=== PATIENT | male | born 1940 | race Caucasian/White ===

== ENCOUNTER → 2024-10-04 | Outpatient (CLI) | payer MEDICARE, OTHER, SELFPAY ==
[2024-10-06 07:09] LABS: Calprotectin, Stool 44 ug/g (0-120)
[2024-10-08 01:07] LABS: Pancreatic Elastase, Fecal 241 (>200)
== END | disposition home or self-care (01) ==
PROVIDERS: Visit Provider Student in an Organized Health Care Education/Training Program
DX: K58.9 Irritable bowel syndrome, unspecified (principal); R19.7 Diarrhea, unspecified
CPT/HCPCS: 82274; 82653; 83630; 83993

== ENCOUNTER 2024-12-01 08:34 | Day surgery (SDC) | payer MEDICARE, OTHER, SELFPAY ==
--- NOTE | 2024-11-30 13:56 | PAT.ANE_ITS ---
Pre-Assessment Diagnosis/Proposed Procedure Planned Operative Procedure(s): CSCOPE Anesthesia History Anesthesia History - dipper clock and watch hands: Anesthesia History - dipper clock and watch hands Hx Hospitalization No 11/30/24 13:04 Any Problems With Anesthesia No 11/30/24 13:04 Cholinesterase deficiency No 11/30/24 13:04 You/Your Family Experience No 11/30/24 13:04 fever (hyperthermia) with Relationship Recent Exposure to Contagious Disease Does patient have nerve No 11/30/24 13:04 stimulator Patient instructed to have device shut off --Does patient have Pacemaker or ICD? When Was Last Pacemaker Check QUESTION #4 FULL TEXT: You/Your Family Experience fever (hyperthermia) with Anesthesia Last Oral Intake Last Oral intake: Last Oral Intake NPO since Meds taken in AM with sips of water? Meds patient instructed to take am of surgery PONV PONV - dipper clock and watch hands: PONV - dipper clock and watch hands Female No 11/30/24 13:04 HX of Motion Sickness No 11/30/24 13:04 HX of N/V After Surgery No 11/30/24 13:04 Non-Smoker Yes 11/30/24 13:04 Duration of Surgery greater No 11/30/24 13:04 than 60 minutes Number of Risk Factors 1 11/30/24 13:04 PONV Score Low Risk 11/30/24 13:04 Respiratory Assessment Respiratory Assessment - dipper clock and watch hands: Respiratory Tract Infection Hx - dipper clock and watch hands Hx Respiratory Tract Infection No 11/30/24 13:04 STOP Sleep Apnea STOP Sleep Apnea - dipper clock and watch hands: STOP Sleep Apnea - dipper clock and watch hands Hx Hypertension Yes: CONTROLLED BUT HAS PRN 11/30/24 13:04 MEDS FOR SPIKES Hx Sleep Apnea Yes 11/30/24 13:04 CPAP Yes 11/30/24 13:04 BIPAP No 11/30/24 13:04 Do you snore loudly (louder than talking or can be heard Do you often feel tired/ fatigued/ sleepy during daytime? Has anyone observed you stop breathing during sleep? STOP Results Positive 11/30/24 13:04 QUESTION #5 FULL TEXT : Do you snore loudly (louder than talking or can be heard through closed doors)? Tobacco Use History Tobacco Use History - dipper clock and watch hands: Tobacco Use History - dipper clock and watch hands Tobacco Use Smoking Status Never smoker 11/30/24 13:04 Hx Tobacco Use No 11/30/24 13:04 Years Smoking Packs Smoked per Day Smoking Cessation Date was within the last 15 years Hx Smoking Cessation Date Hx Smoking Cessation Counseling Hematologic Medial History Hematologic Hx - dipper clock and watch hands: Hematologic Medical Hx - technical documentation specialist Hx of Blood Transfusion No 11/30/24 13:04 Hx of Transfusion in last 3 No 11/30/24 13:04 Months Date of Last Transfusion (if within last 3 months) Ever experience any problems No 11/30/24 13:04 with transfusion(s)? Specify any problems Hx of Preganancy in last 3 N/A 11/30/24 13:04 Months Nurse Filling Out Transfusion NBUCHER 11/30/24 13:04 & Questions: Date: 11/30/24 11/30/24 13:04 Time: 13:08 11/30/24 13:04 Patient unable to answer at this time (ie. confused, unrespo /Reproduction History /Reproductive History - dipper clock and watch hands: /Reproductive Hx- dipper clock and watch hands Hx Now Gestational Age (in weeks): EDC: Hx Hx Para Hx Section SAB PFSH Medical History (Updated 11/30/24 @ 13:16 by Hilary Lombardi) Wears hearing aid Loss of hearing Wears glasses Wears dentures Insulin dependent diabetes mellitus Arthritis Gout History of renal disease High cholesterol TIA (transient ischemic attack) CPAP (continuous positive airway pressure) dependence Sleep apnea Non-smoker History of edema Shortness of breath on exertion Hypertension History of echocardiogram History of rheumatic fever Cardiology follow-up encounter Cancer Myocardial infarction Palpitations LBBB (left bundle branch block) Kidney disease Hypoglycemia History of TIAs Dizziness CAD in [place] artery Bradycardia Bladder incontinence Blood in stool Bilateral lower extremity edema Aortic stenosis Actinic keratosis Abdominal pain Morbid obesity Colon cancer Neuropathy Chronic GERD MARTIN on CPAP Kidney disease, chronic, stage III (GFR 30-59 ml/min) Recurrent major depression CHF (congestive heart failure) Benign essential HTN Type 2 diabetes with complication Home Medications ?Medication ?Instructions ?Recorded ?Last Taken ?Type allopurinol 100 mg tablet 100 mg PO QDAY 09/20/24 Unknown History aspirin 81 mg tablet,delayed 81 mg PO QDAY 09/20/24 Unknown History release (Adult Aspirin Regimen) bumetanide 2 mg tablet 2 mg PO QDAY 09/20/24 Unknown History carvedilol 25 mg tablet 25 mg PO BID 09/20/24 Unknown History clonidine HCl 0.1 mg tablet 0.1 mg PO QHS PRN hypertensive 09/20/24 Unknown History emergency gabapentin 600 mg tablet 600 mg PO BID 09/20/24 Unknown History hydralazine 100 mg tablet 100 mg PO BID 09/20/24 Unknown History insulin NPH isoph U-100 human 100 See Protocol subcut TID 09/20/24 Unknown History unit/mL subcutaneous suspension (Novolin N NPH U-100 Insulin isophane) isosorbide mononitrate 30 mg 30 mg PO DAILY 09/20/24 Unknown History tablet,extended release 24 hr lisinopril 40 mg tablet 40 mg PO BID 09/20/24 Unknown History pantoprazole 40 mg tablet,delayed 40 mg PO QDAY 09/20/24 Unknown History release potassium chloride 20 mEq 20 meq PO QDAY 09/20/24 Unknown History tablet,extended release sertraline 100 mg tablet 100 mg PO QDAY 09/20/24 Unknown History spironolactone 100 mg tablet 100 mg PO BID 09/20/24 Unknown History Allergy/AdvReac Type Severity Reaction Status Date / Time amlodipine (From Norvasc) Allergy Intermediate Other Verified 11/30/24 12:57 hydrochlorothiazide Allergy Intermediate Other Verified 11/30/24 12:57 olmesartan Allergy Intermediate Other Verified 11/30/24 12:57 penicillin G benzathine Allergy Intermediate Other Verified 11/30/24 12:57 Penicillins (PCN) Allergy Intermediate Other Verified 11/30/24 12:57 pravastatin Allergy Intermediate Other Verified 11/30/24 12:57 valsartan (From [employer]) Allergy Intermediate Other Verified 11/30/24 12:57 Family History Father Heart disease Prostate cancer Sister HLD (hyperlipidemia) Hypertension Surgical History (Updated 11/30/24 @ 13:16 by Hilary Lombardi) History of cardiac catheterization History of heart surgery History of cataract extraction with lens replacement Hx of CABG Hx of tonsillectomy H/O colectomy Hx of ileostomy H/O endarterectomy S/P TAVR (transcatheter aortic valve replacement) Social History Smoking Status: Never smoker alcohol intake: never Audit: Pertinent Findings Pertinent Findings Echo (EF%) pertinent findings: 04/28/2024 normal EF stable aortic valve replacement noted Consult pertinent findings: Cardiology 10/06/2024 Alejo coronary artery disease status post CABG AZUL to LAD saphenous vein graft hypertension MARTIN EF 55 to 60% aortic valve replacement aortic valve replacement was 06/04/2023 has left bundle branch block occasional PVCs PACs Recommendation Anesthesia Recommendation Anesthesia recommendation: OPTIMIZED for anesthesia
--- NOTE | 2024-12-01 | COLBX_PTH ---
PATIENT: VALERIY BEEBE LOC: [facility] U#:[id number] AGE/SX: 84/M ROOM: RE12/01/[address]: Dr. Jarrett Grace DO : 1940 BED: DIS: 12/01/2024 SPEC #: [id number] RECD: 12/01/24 12:47 STATUS: DOMINIK CHARISSA #: [id number] JASWANT: 12/01/24 00:[address]: Jarrett Grace DEPT: SURGICAL PATHOLOGY RECD BY: Tony Fernandez ENTERED: 12/01/24 12:48 SP TYPE: COLON BX DEBORAH DR: Dr. Vesta Lewis DO Tissues: COLON BIOPSY Procedures: Surgery Specimen Level IV HEADER OPERATION: Colonoscopy PRE-OP DIAGNOSIS: History of colon cancer, stage IV, constipation, diarrhea TISSUE SUBMITTED: Anastomosis biopsy MICROSCOPIC DIAGNOSIS Anastomosis, biopsy: Fragments of colonic mucosa, no pathologic diagnosis. 12/02/2024 MICROSCOPIC DESCRIPTION Slides are reviewed. GROSS DESCRIPTION Received in fixative is one container labeled with the patient's name and designated Anastomosis biopsy. The specimen consists of three irregular fragments of light donovan soft tissue that in aggregate measure 1.0 x 0.3 x 0.2 cm. The specimen is totally submitted in one cassette. 12/01/2024 TC:5 CPT:33942
--- NOTE | 2024-12-01 08:41 | PRE.ANES_ITS ---
ASA Classification* ASA Classification ASA Classification: 3 Assessment & Plan Anesthesia* Anesthesia Assessment Anesthesia Assessment: Discussed sedation and/or anesthesia options, risks, benefits, and alternatives with patient/parents/legal guardian/POA. Questions invited. The patient/parents/legal guardian/POA seems to understand and agrees to proceed with anesthesia plan. Reviewed the physical assessment, medical history, allergy history and patient home medications list prior to surgery/procedure/anesthetic and documented any changes. Performed airway and anesthesia risk assessments. Anesthesia Type Anesthesia Type: MAC Anesthesia Focused Assessment* Airway Assessment Mouth opens: >3 cm Mallampati Score: II Focused Labs Anesthesia Preop lab: CBC CHEMISTRY COAG Pre-Assessment Diagnosis/Proposed Procedure Planned Operative Procedure(s): CSCOPE Anesthesia History Anesthesia History - mechanical sound technician: Anesthesia History - mechanical sound technician Hx Hospitalization No 11/30/24 13:04 Any Problems With Anesthesia No 11/30/24 13:04 Cholinesterase deficiency No 11/30/24 13:04 You/Your Family Experience No 11/30/24 13:04 fever (hyperthermia) with Relationship Recent Exposure to Contagious Disease Does patient have nerve No 11/30/24 13:04 stimulator Patient instructed to have device shut off --Does patient have Pacemaker or ICD? When Was Last Pacemaker Check QUESTION #4 FULL TEXT: You/Your Family Experience fever (hyperthermia) with Anesthesia Last Oral Intake Last Oral intake: Last Oral Intake NPO since Meds taken in AM with sips of water? Meds patient instructed to take am of surgery PONV PONV - mechanical sound technician: PONV - mechanical sound technician Female No 11/30/24 13:04 HX of Motion Sickness No 11/30/24 13:04 HX of N/V After Surgery No 11/30/24 13:04 Non-Smoker Yes 11/30/24 13:04 Duration of Surgery greater No 11/30/24 13:04 than 60 minutes Number of Risk Factors 1 11/30/24 13:04 PONV Score Low Risk 11/30/24 13:04 Respiratory Assessment Respiratory Assessment - mechanical sound technician: Respiratory Tract Infection Hx - mechanical sound technician Hx Respiratory Tract Infection No 11/30/24 13:04 STOP Sleep Apnea STOP Sleep Apnea - mechanical sound technician: STOP Sleep Apnea - mechanical sound technician Hx Hypertension Yes: CONTROLLED BUT HAS PRN 11/30/24 13:04 MEDS FOR SPIKES Hx Sleep Apnea Yes 11/30/24 13:04 CPAP Yes 11/30/24 13:04 BIPAP No 11/30/24 13:04 Do you snore loudly (louder than talking or can be heard Do you often feel tired/ fatigued/ sleepy during daytime? Has anyone observed you stop breathing during sleep? STOP Results Positive 11/30/24 13:04 QUESTION #5 FULL TEXT : Do you snore loudly (louder than talking or can be heard through closed doors)? Tobacco Use History Tobacco Use History - mechanical sound technician: Tobacco Use History - mechanical sound technician Tobacco Use Smoking Status Never smoker 11/30/24 13:04 Hx Tobacco Use No 11/30/24 13:04 Years Smoking Packs Smoked per Day Smoking Cessation Date was within the last 15 years Hx Smoking Cessation Date Hx Smoking Cessation Counseling Hematologic Medial History Hematologic Hx - mechanical sound technician: Hematologic Medical Hx - manager unit Hx of Blood Transfusion No 11/30/24 13:04 Hx of Transfusion in last 3 No 11/30/24 13:04 Months Date of Last Transfusion (if within last 3 months) Ever experience any problems No 11/30/24 13:04 with transfusion(s)? Specify any problems Hx of Preganancy in last 3 N/A 11/30/24 13:04 Months Nurse Filling Out Transfusion NBUCHER 11/30/24 13:04 & Questions: Date: 11/30/24 11/30/24 13:04 Time: 13:08 11/30/24 13:04 Patient unable to answer at this time (ie. confused, unrespo /Reproduction History /Reproductive History - mechanical sound technician: /Reproductive Hx- mechanical sound technician Hx Now Gestational Age (in weeks): EDC: Hx Hx Para Hx [facility] Medical History Wears hearing aid Loss of hearing Wears glasses Wears dentures Insulin dependent diabetes mellitus Arthritis Gout History of renal disease High cholesterol TIA (transient ischemic attack) CPAP (continuous positive airway pressure) dependence Sleep apnea Non-smoker History of edema Shortness of breath on exertion Hypertension History of echocardiogram History of rheumatic fever Cardiology follow-up encounter Cancer Myocardial infarction Palpitations LBBB (left bundle branch block) Kidney disease Hypoglycemia History of TIAs Dizziness CAD in [place] artery Bradycardia Bladder incontinence Blood in stool Bilateral lower extremity edema Aortic stenosis Actinic keratosis Abdominal pain Morbid obesity Colon cancer Neuropathy Chronic GERD MARTIN on CPAP Kidney disease, chronic, stage III (GFR 30-59 ml/min) Recurrent major depression CHF (congestive heart failure) Benign essential HTN Type 2 diabetes with complication Home Medications ?Medication ?Instructions ?Recorded ?Last Taken ?Type allopurinol 100 mg tablet 100 mg PO QDAY 09/20/24 Unknown History aspirin 81 mg tablet,delayed 81 mg PO QDAY 09/20/24 Unknown History release (Adult Aspirin Regimen) bumetanide 2 mg tablet 2 mg PO QDAY 09/20/24 Unknown History carvedilol 25 mg tablet 25 mg PO BID 09/20/24 Unknown History clonidine HCl 0.1 mg tablet 0.1 mg PO QHS PRN hypertensive 09/20/24 Unknown History emergency gabapentin 600 mg tablet 600 mg PO BID 09/20/24 Unknown History hydralazine 100 mg tablet 100 mg PO BID 09/20/24 Unknown History insulin NPH isoph U-100 human 100 See Protocol subcut TID 09/20/24 Unknown History unit/mL subcutaneous suspension (Novolin N NPH U-100 Insulin isophane) isosorbide mononitrate 30 mg 30 mg PO DAILY 09/20/24 Unknown History tablet,extended release 24 hr lisinopril 40 mg tablet 40 mg PO BID 09/20/24 Unknown History pantoprazole 40 mg tablet,delayed 40 mg PO QDAY 09/20/24 Unknown History release potassium chloride 20 mEq 20 meq PO QDAY 09/20/24 Unknown History tablet,extended release sertraline 100 mg tablet 100 mg PO QDAY 09/20/24 Unknown History spironolactone 100 mg tablet 100 mg PO BID 09/20/24 Unknown History Allergy/AdvReac Type Severity Reaction Status Date / Time amlodipine (From Norvasc) Allergy Intermediate Other Verified 11/30/24 12:57 hydrochlorothiazide Allergy Intermediate Other Verified 11/30/24 12:57 olmesartan Allergy Intermediate Other Verified 11/30/24 12:57 penicillin G benzathine Allergy Intermediate Other Verified 11/30/24 12:57 Penicillins (PCN) Allergy Intermediate Other Verified 11/30/24 12:57 pravastatin Allergy Intermediate Other Verified 11/30/24 12:57 valsartan (From Diovan) Allergy Intermediate Other Verified 11/30/24 12:57 Family History Father Heart disease Prostate cancer Sister HLD (hyperlipidemia) Hypertension Surgical History History of cardiac catheterization History of heart surgery History of cataract extraction with lens replacement Hx of CABG Hx of tonsillectomy H/O colectomy Hx of ileostomy H/O endarterectomy S/P TAVR (transcatheter aortic valve replacement) Social History Smoking Status: Never smoker alcohol intake: never Review of Systems (Anesthesia) ROS Narrative System reviewed and no additional complaints, except as documented.
[2024-12-01 09:03] VITALS: BP 112/48; PULSE 56; RESP 18; TEMP 36.9; O2SAT 96; BMI 41.6
--- NOTE | 2024-12-01 09:28 | PCM.HP.STD ---
HPI - General General Date of Admission: 12/01/24 Date of Service: 12/01/24 Chief Complaint: History of colon cancer and intermittent diarrhea HPI Narrative VALERIY BEEBE, is a 84 M who presents for surveillance colonoscopy today. Pt has a PMHx of stage IV colon cancer in 2004. He underwent resection and chemotherapy at that time. Since then has had a colonoscopy every 5 years with no further indications of cancer. With his age and comorbidities other GI doctors have not wanted to perform a colonoscopy but he would like one to have the peace of mind. He has alternating constipation and diarrhea which has been going on since his resection. He has diarrhea a few times per week but the constipation is more concerning to him. He tells me he is taking miralax and stool softeners as need for constipation. Last colonoscopy was in 2019. He denies abdominal pain, n/v, heartburn, or blood in his stool. O ed [facility] Medical History Wears hearing aid Loss of hearing Wears glasses Wears dentures Insulin dependent diabetes mellitus Arthritis Gout History of renal disease High cholesterol TIA (transient ischemic attack) CPAP (continuous positive airway pressure) dependence Sleep apnea Non-smoker History of edema Shortness of breath on exertion Hypertension History of echocardiogram History of rheumatic fever Cardiology follow-up encounter Cancer Myocardial infarction Palpitations LBBB (left bundle branch block) Kidney disease Hypoglycemia History of TIAs Dizziness CAD in [place] artery Bradycardia Bladder incontinence Blood in stool Bilateral lower extremity edema Aortic stenosis Actinic keratosis Abdominal pain Morbid obesity Colon cancer Neuropathy Chronic GERD MARTIN on CPAP Kidney disease, chronic, stage III (GFR 30-59 ml/min) Recurrent major depression CHF (congestive heart failure) Benign essential HTN Type 2 diabetes with complication Home Medications ?Medication ?Instructions ?Recorded ?Last Taken ?Type allopurinol 100 mg tablet 100 mg PO QDAY 09/20/24 Unknown History aspirin 81 mg tablet,delayed 81 mg PO QDAY 09/20/24 11/30/24 History release (Adult Aspirin Regimen) bumetanide 2 mg tablet 2 mg PO QDAY 09/20/24 Unknown History carvedilol 25 mg tablet 25 mg PO BID 09/20/24 12/01/24 08:00 History clonidine HCl 0.1 mg tablet 0.1 mg PO QHS PRN hypertensive 09/20/24 Unknown History emergency gabapentin 600 mg tablet 600 mg PO BID 09/20/24 Unknown History hydralazine 100 mg tablet 100 mg PO BID 09/20/24 12/01/24 08:00 History insulin NPH isoph U-100 human 100 See Protocol subcut TID 09/20/24 Unknown History unit/mL subcutaneous suspension (Novolin N NPH U-100 Insulin isophane) isosorbide mononitrate 30 mg 30 mg PO DAILY 09/20/24 Unknown History tablet,extended release 24 hr lisinopril 40 mg tablet 40 mg PO BID 09/20/24 Unknown History pantoprazole 40 mg tablet,delayed 40 mg PO QDAY 09/20/24 Unknown History release potassium chloride 20 mEq 20 meq PO QDAY 09/20/24 Unknown History tablet,extended release sertraline 100 mg tablet 100 mg PO QDAY 09/20/24 Unknown History spironolactone 100 mg tablet 100 mg PO BID 09/20/24 Unknown History Allergy/AdvReac Type Severity Reaction Status Date / Time amlodipine (From [facility]) Allergy Intermediate Other Verified 12/01/24 09:00 hydrochlorothiazide Allergy Intermediate Other Verified 12/01/24 09:00 olmesartan Allergy Intermediate Other Verified 12/01/24 09:00 penicillin G benzathine Allergy Intermediate Other Verified 12/01/24 09:00 Penicillins (PCN) Allergy Intermediate Other Verified 12/01/24 09:00 pravastatin Allergy Intermediate Other Verified 12/01/24 09:00 valsartan (From Diovan) Allergy Intermediate Other Verified 12/01/24 09:00 Family History Father Heart disease Prostate cancer Sister HLD (hyperlipidemia) Hypertension Surgical History History of cardiac catheterization History of heart surgery History of cataract extraction with lens replacement Hx of CABG Hx of tonsillectomy H/O colectomy Hx of ileostomy H/O endarterectomy S/P TAVR (transcatheter aortic valve replacement) Social History Smoking Status: Never smoker alcohol intake: never ROS Constitutional Constitutional: Denies fatigue, fever(s), poor appetite, weight gain or weight loss Gastrointestinal Gastrointestinal: Denies belching, bloating, change in bowel habits, change in stool character, chewing difficulty, coffee ground emesis, constipation, cramping, diarrhea, dyspepsia, dysphagia, early satiety, excessive flatus, fecal incontinence, heartburn, hematemesis, hematochezia, hemorrhoids, loose stools, melena, nausea, odynophagia, rectal bleeding, tenesmus, vomiting or weight changes Vital Signs Vital Signs Vital Signs: 12/01/24 09:03 12/01/24 09:03 Temperature 98.4 F Temperature Source Temporal Pulse Rate 56 L Respiratory Rate 18 Respiratory Pattern Normal Blood Pressure 112/48 L Blood Pressure Mean 69 Blood Pressure Source Monitor Blood Pressure Position Semi-Fowlers Blood Pressure Location Left Arm Pulse Ox 96 Oxygen Delivery Method Room Air Weight Weight: 307 lb 1.663 oz Body Mass Index (BMI) 41.6 Physical Exam Const alert, oriented x3, no apparent distress and healthy appearing General Appearance: cooperative GI normal to inspection, nondistended, normoactive bowel sounds, soft to palpation, non-tender and non-distended Percussion: normal to percussion Rectal Exam: deferred Assessment & Plan Assessment/Plan (1) Hx of colon cancer, stage IV: (2) Constipation: (3) Diarrhea: PLAN: Plan Assessment and Plan Assessment and Plan (1) Diarrhea: Status: Acute (2) Constipation: Status: Acute (3) Hx of colon cancer, stage IV: Status: Acute Plan: This is an 84 yo male pt here today for establishment. He is s/p colon resection in 2003 for stage 4 colon cancer. He does not have a colostomy. He has had no recurrence of cancer since then and has had colonoscopies every 5 years since. With his age and comorbidities other GI doctor have not wanted to perform a colonoscopy. He is worried about colon cancer and would like to have a colonoscopy to give him peace of mind. He will be scheduled for this. I will also order stool tests for EPI, blood, infection or inflammation while we wait for colonoscopy. -Colonoscopy -Stool tests -f/u after procedure Orders: Orders Stool Lactoferrin/WBC Today K58.9 - Irritable bowel syndrome, unspecified, R19.7 - Diarrhea, unspecified Calprotectin, Stool Today R19.7 - Diarrhea, unspecified Stool Occult Blood iFOB Today R19.7 - Diarrhea, unspecified Pancreatic Elastase, Fecal Today R19.7 - Diarrhea, unspecified
[2024-12-01 10:00] VITALS: BP 112/48; BP 117/53; PULSE 57; RESP 16; TEMP 36.4; O2SAT 95
--- NOTE | 2024-12-01 10:02 | OP.COLON_ITS ---
Patient Name: Golden Soliman Procedure Date: 12/01/2024 9:36 AM Date of : 1940 Age: 84 Procedure: Colonoscopy Indications: High risk colon cancer surveillance: Personal history of colon cancer Providers: Jarrett Grace DO Referring MD: Vesta Copeland Do Medicines: Monitored Anesthesia Care Patient Profile: This is an 84 year old male. Refer to note in patient chart for documentation of history and physical. Last Colonoscopy: 5 years ago. Complications: No immediate complications. Procedure: Pre-Anesthesia Assessment: - Prior to the procedure, a History and Physical was performed, and patient medications and allergies were reviewed. The patient is competent. The risks and benefits of the procedure and the sedation options and risks were discussed with the patient. All questions were answered and informed consent was obtained. Patient identification and proposed procedure were verified by the physician in the pre-procedure area. Mental Status Examination: alert and oriented. Airway Examination: normal oropharyngeal airway and neck mobility. Respiratory Examination: clear to auscultation. CV Examination: normal. Prophylactic Antibiotics: The patient does not require prophylactic antibiotics. Prior Anticoagulants: The patient has taken no anticoagulant or antiplatelet agents except for NSAID medication. ASA Grade Assessment: II - A patient with mild systemic disease. After reviewing the risks and benefits, the patient was deemed in satisfactory condition to undergo the procedure. The anesthesia plan was to use monitored anesthesia care (MAC). Immediately prior to administration of medications, the patient was re-assessed for adequacy to receive sedatives. The heart rate, respiratory rate, oxygen saturations, blood pressure, adequacy of pulmonary ventilation, and response to care were monitored throughout the procedure. The physical status of the patient was re-assessed after the procedure. After I obtained informed consent, the scope was passed under direct vision. Throughout the procedure, the patient's blood pressure, pulse, and oxygen saturations were monitored continuously. The colonoscope was introduced through the anus and advanced to the terminal ileum. The colonoscopy was performed without difficulty. The patient tolerated the procedure well. The quality of the bowel preparation was adequate. The ileocecal valve, appendiceal orifice, and rectum were photographed. Scope In: 9:44:37 AM Scope Withdrawal Time 0 hours 6 minutes 23 seconds Scope Out: 9:54:24 AM Total Procedure Duration Time 0 hours 9 minutes 47 seconds Findings: The perianal and digital rectal examinations were normal. There was evidence of a prior functional end-to-end colo-colonic anastomosis in the sigmoid colon. This was patent and was characterized by healthy appearing mucosa. The anastomosis was traversed. Biopsies were taken with a cold forceps for histology. Verification of patient identification for the specimen was done. Estimated blood loss was minimal. The exam was otherwise without abnormality on direct and retroflexion views. Impression: - Patent functional end-to-end colo-colonic anastomosis, characterized by healthy appearing mucosa. Biopsied. - The examination was otherwise normal on direct and retroflexion views. Recommendation: - Discharge patient to home. - Resume previous diet. - Continue present medications. - Await pathology results. - No recommendation at this time regarding repeat colonoscopy due to age. Procedure Code(s): --- Professional --- 96946, Colonoscopy, flexible; with biopsy, single or multiple CPT copyright 2021 [employer]. All rights reserved. The codes documented in this report are preliminary and upon silver wrapper review may be revised to meet current compliance requirements. Jarrett Grace DO 12/01/2024 10:02:20 AM This report has been signed electronically. Number of Addenda: 0 Note Initiated On: 12/01/2024 9:36 AM
--- NOTE | 2024-12-01 10:03 | OP.CCLET_ITS ---
12/01/2024 Vesta Copeland Do Re : Colonoscopy procedure for Golden Soliman Dear Min This procedure was performed on November. My impressions and recommendations are as follows: Impressions : - Patent functional end-to-end colo-colonic anastomosis, characterized by healthy appearing mucosa. Biopsied. - The examination was otherwise normal on direct and retroflexion views. Recommendations : - Discharge patient to home. - Resume previous diet. - Continue present medications. - Await pathology results. - No recommendation at this time regarding repeat colonoscopy due to age. My findings are described in the full procedure note, which is enclosed. If I can be of further assistance, please feel free to contact me at . Sincerely, Jarrett Grace, 12/01/2024 10:02:20 AM This report has been signed electronically.
[2024-12-01 10:05] VITALS: BP 112/48; BP 120/56; PULSE 57; RESP 16; O2SAT 92
--- NOTE | 2024-12-01 10:09 | PCM.POST.ANE ---
Anesthesia: Postop Eval I Current Vital Signs Temperature: 97.5 F Pulse Rate: 57 Blood Pressure: 117/53 Respiratory Rate: 14 Pulse Ox: 94 Oxygen Delivery Method: Room Air Assessment Airway patent: Yes Spontaneous unlabored respirations: Yes Mental status: Asleep nausea: No Vomiting: No Anesthesia Complication: No Fluid Hydration Crystalloid volume administer (ml): 40 Total IV fluid infused: 40 Progress Note Anesthesia document: Postop Eval 1 completed: Yes
[2024-12-01 10:10] VITALS: BP 112/48; BP 117/53; BP 118/59; PULSE 57; RESP 14; RESP 16; TEMP 36.4; O2SAT 92; O2SAT 94
[2024-12-01 10:17] VITALS: BP 112/48; BP 117/46; PULSE 62; RESP 16; TEMP 36.8; O2SAT 97
[2024-12-01 10:17] LABS: Bedside Glucose 103 mg/dL (74-106)
[2024-12-01 11:03] VITALS: BP 112/48
--- NOTE | 2024-12-01 11:43 | PCM.POSTANE2 ---
Anesthesia Postop Eval I Sum Postop Eval Completion status Anesthesia document: Postop Eval 1 completed: Yes Anesthesia Postop Eval I Summary Anesthesia Postop Eval I Summary: Anesthesia Postop Eval I: Assessment Summary Airway patent Yes 12/01/24 10:10 [email or web address] Spontaneous unlabored Yes 12/01/24 10:10 [email or web address] respirations Mental status Asleep 12/01/24 10:10 [email or web address] nausea No 12/01/24 10:10 [email or web address] Vomiting No 12/01/24 10:10 [email or web address] Anesthesia Postop Eval I: Fluid Summary Crystalloid volume administer 40 12/01/24 10:10 [email or web address] (ml) Colloids volume administered ( ml) Blood Product volume administered (ml) Total IV fluid infused 40 12/01/24 10:10 [email or web address] Anesthesia Postop Eval I: Summary Notes Anesthesia Complication No 12/01/24 10:10 [email or web address] Anesthesia Complication Comment: Post-operative progress note Anesthesia: Postop Eval II Evaluation Mental status: Awake Pain Level: 0 nausea: No Vomiting: No
== END 2024-12-01 11:05 | disposition home or self-care (01) ==
LOC: EN 08:36 → AC 08:37
PROVIDERS: PCP Family Medicine; Referring Provider Family Medicine; Visit Provider Internal Medicine Gastroenterology
PROC: 0DJD8ZZ Inspection of Lower Intestinal Tract, Via Natural or Artificial Opening Endoscopic (ICD-10-PCS; CPT 45378; principal; 2024-12-01 09:25)
DX: Z12.11 Encounter for screening for malignant neoplasm of colon (principal); I13.0 Hypertensive heart and chronic kidney disease with heart failure and stage 1 through stage 4 chronic kidney disease, or unspecified chronic kidney disease; I50.9 Heart failure, unspecified; E66.01 Morbid (severe) obesity due to excess calories; Z68.41 Body mass index [BMI] 40.0-44.9, adult; E11.22 Type 2 diabetes mellitus with diabetic chronic kidney disease; Z79.4 Long term (current) use of insulin; E11.40 Type 2 diabetes mellitus with diabetic neuropathy, unspecified; N18.30 Chronic kidney disease, stage 3 unspecified; K58.9 Irritable bowel syndrome, unspecified; R19.7 Diarrhea, unspecified; Z85.038 Personal history of other malignant neoplasm of large intestine; M10.9 Gout, unspecified; I25.2 Old myocardial infarction; I35.0 Nonrheumatic aortic (valve) stenosis; I25.10 Atherosclerotic heart disease of native coronary artery without angina pectoris; K21.9 Gastro-esophageal reflux disease without esophagitis; F33.9 Major depressive disorder, recurrent, unspecified; E78.00 Pure hypercholesterolemia, unspecified; G47.33 Obstructive sleep apnea (adult) (pediatric); Z88.0 Allergy status to penicillin; Z95.1 Presence of aortocoronary bypass graft; Z95.2 Presence of prosthetic heart valve; Z92.21 Personal history of antineoplastic chemotherapy; Z90.49 Acquired absence of other specified parts of digestive tract; Z79.82 Long term (current) use of aspirin; Z86.73 Personal history of transient ischemic attack (TIA), and cerebral infarction without residual deficits; Z79.899 Other long term (current) drug therapy
CPT/HCPCS: 45380; 82962; 88305; A4216; J2405

== ENCOUNTER 2024-12-13 18:59 | Inpatient (IN) | payer MEDICARE, OTHER, SELFPAY ==
[2024-12-13 19:22] VITALS: BP 181/66; PULSE 59; RESP 17; TEMP 36.8; O2SAT 94; BMI 41.1
[2024-12-13 21:39] VITALS: BP 192/69; PULSE 62
[2024-12-13] MEDS: Gabapentin 600 MG Tablet PO (21:48)
[2024-12-13] MEDS: Heparin Injection (Vial) 5,000 UNIT/ML VIAL 5000 UNIT SC (21:48)
[2024-12-13] MEDS: Insulin Glargine-YFGN 100 UNIT/ML Pen 15 UNIT SC (21:48)
[2024-12-13 21:49] VITALS: BP 192/69; PULSE 62
[2024-12-13] MEDS: hydrALAZINE 50 MG Tablet 100 MG PO (21:49)
[2024-12-13 22:36] LABS: Bedside Glucose 221 mg/dL (74-106)
[2024-12-13 23:00] VITALS: O2SAT 98
--- NOTE | 2024-12-13 23:11 | CPS ---
[2300] 2L bleed-in for pt.'s home NIV unit
[2024-12-13 23:40] VITALS: BP 149/60; PULSE 62
[2024-12-14] VITALS (7 sets, daily range): BP systolic 143–188; BP diastolic 45–71; PULSE 58–87; RESP 16–17; TEMP 36.3–37.2; O2SAT 92–95
[2024-12-14 05:27] LABS: Hemoglobin 10.2 g/dL (13.0-16.5); Mean Corp Hgb Conc 35.2 g/dL (32-36); Mean Corpuscular Hgb 30.2 pg (27.0-32.0); Mean Corpuscular Volume 85.8 fL (80-94); Mean Platelet Vol. 10.8 fl (6.2-12.0); POSITIVE COUNT YES; POSITIVE MORPHOLOGY YES; Platelet Count 213 K/mm3 (150-450); RBC Distribution Width CV 13.2 % (11.6-14.6); Red Blood Count 3.38 M/mm3 (4.6-6.2); White Blood Count 8.2 K/mm3 (4.4-11.0)
[2024-12-14 05:40] LABS: Differential Indicated MANUAL DIFF
[2024-12-14 06:11] LABS: ALB/GLOB Ratio 0.4 RATIO (0.9-2.4); AST(SGOT) 24 U/L (15-37); Alanine Aminotransfer ALT/SGPT 30 U/L (16-61); Albumin, Serum 1.6 g/dL (3.2-5.0); Alkaline Phosphatase 49 U/L (45-117); Anion Gap 7 (5-15); BUN 50 mg/dL (7-18); BUN/Creat Ratio 31.1 RATIO (10-20); Calcium,Total 8.3 mg/dL (8.5-10.1); Chloride 107 mmol/L (98-107); Creatinine, Serum 1.61 mg/dL (0.70-1.30); EST Glomerular Filtration Rate 43 mL/min (>60); Est Glom Filt Rate - Afr Amer 53 mL/min (>60); Estimated Creatinine Clearance 45.98 ml/min; Globulin 3.8 g/dL (2.2-4.2); Glucose 202 mg/dL (74-106); Magnesium 2.2 mg/dL (1.6-2.6); Phosphorus 2.4 mg/dL (2.5-4.9); Potassium 2.8 mmol/L (3.5-5.1); Protein, Total 5.4 g/dL (6.4-8.2); Sodium Level 141 mmol/L (136-145)
[2024-12-14] MEDS: hydrALAZINE 50 MG Tablet 100 MG PO ×3 (06:59→20:32)
[2024-12-14 07:19] LABS: Bedside Glucose 180 mg/dL (74-106)
[2024-12-14 09:43] LABS: Eosinophil 5 % (0-5); Lymphocyte 22 % (19-41); Metamyelocyte 1 % (0-1); Monocyte 9 % (0-10); Neutrophil-Band 1 % (0-5); Neutrophil-Segmented 62 % (47-70); Total Cells Counted 100 (MANUAL DIFF)
[2024-12-14 09:48] LABS: Platelet Estimate ADEQUATE (ADEQ); Red Cell Morphology NORM C+C NORMAL (NORM C&C)
[2024-12-14 09:50] LABS: Absolute Neutrophil Count 5.1 X10^3/uL (2.0-7.7)
[2024-12-14 09:53] LABS: Absolute Lymphocyte Count 1.79 X10^3/uL (0.83-4.51)
[2024-12-14] MEDS: Insulin Lispro 100 UNIT/ML INSULN.PEN SC ×3 (09:56→17:42)
[2024-12-14] MEDS: Insulin Lispro 100 UNIT/ML INSULN.PEN 8 UNIT SC ×3 (09:56→17:42)
[2024-12-14] MEDS: Isosorbide Mononitrate 30 MG Tablet PO (09:57)
[2024-12-14] MEDS: Carvedilol 12.5 MG Tablet PO ×2 (09:57→17:42)
[2024-12-14] MEDS: Allopurinol 100 MG Tablet PO (09:57)
[2024-12-14] MEDS: Potassium Chloride Oral Tablet 20 MEQ PO ×2 (09:57→20:32)
[2024-12-14] MEDS: Sertraline 100 MG Tablet PO (09:57)
[2024-12-14] MEDS: Aspirin E.C. 81 MG Tablet PO (09:57)
[2024-12-14] MEDS: Gabapentin 600 MG Tablet PO ×2 (09:59→20:35)
--- NOTE | 2024-12-14 10:48 | HP.PCM_ITS ---
[facility] - General General Date of Admission: 12/13/24 Chief Complaint: Generalized weakness HPI Narrative VALERIY BEEBE, is a 84-year-old M with a past medical history of diabetes mellitus type 2/insulin-dependent complicated by neuropathy, GERD, CHF, hypertension, chronic renal failure stage III, obstructive sleep apnea on CPAP, TIA's in the past, CAD with history of CABG, aortic stenosis (status post TAVR), history of colon cancer, left bundle branch block, peripheral vascular disease, hyperuricemia on allopurinol, depression and morbid obesity who presented to the ED at [facility] with c/o nausea/vomiting/diarrhea/confusion/weakness for few days. Significant lab in the emergency department was a creatinine of 6 (baseline is 1.5-1.7). A CT scan of the abdomen and pelvis without contrast was unremarkable with the exception of a hypodense region of the posterior right hepatic lobe which could be artifact. A follow-up ultrasound was recommended. CT of the head showed no acute intracranial abnormality. Ultrasound of the kidneys showed no obstruction or acute findings in the kidneys. There was mild renal cortical thinning and borderline echogenicity suggesting medical renal disease. There were tiny nonobstructing calculi or vascular calcifications in the left kidney. Chest x-ray showed possible pulmonary edema with trace bilateral pleural effusions. Serum bicarb was 19 and the venous pH was 7.19. He was transferred to [facility] for nephrology consultation. He was emergently dialyzed on 12/09/2024 and was dialyzed again on 12/10/2024. He was started on a continuous infusion of bicarbonate. He only had to be dialyzed twice. Bumex, potassium, Aldactone and Lisinopril were held. With hydration and dialysis the acute renal failure was much improved. Creatinine prior to discharge from [facility] was 1.61 which is within his baseline. Nephrology felt he may have a component of IN because of hypereosinophilia. and he was placed on Solumedrol. Cognition improved with resolution of uremia but, was not back to his baseline. he was seen by therapy and palliative care and acute rehab was recommended at [facility]. He was transferred to the acute inpt rehab unit at [facility] on 12/13/24 for 3 hours of therapy daily to restore function/independence at or near his level prior to the recent decline. Afebrile VSS -blood pressure has ranged from 149/60 to 192/69 since admission to rehab. Heart rate has ranged from 59-62. Maintaining appropriate oxygen saturation on RA-94 to 95% on room air while awake. Wears CPAP at night with a 2 L O2 bleed in. Weight is 294 pounds. BMI is 41.1. Discussed with nursing - Nursing reports that he has hematuria with clots. apparently the Fournier was only removed yesterday.......we were told the PVR at the previous institution was 9. No postvoid residuals have been done at [facility] yet. Nursing will obtain today we will also obtain the urine for a UA. Reviewed the THERAPY notes Medication list reviewed. Antihypertensives include carvedilol 12.5 mg twice daily and hydralazine 100 mg 3 times daily. He is taking 15 units of glargine nightly and is on 8 units of lispro 3 times daily with meals. He is also on a sliding scale with meals. All labs from this morning were personally reviewed. White blood cell count is normal at 8.2. Hemoglobin is 10.2 with normochromic normocytic indices and the platelets are within normal limits. Sodium is 141 and the potassium is quite low at 2.8. Serum bicarb is 27. The BUN is 50 with a creatinine of 1.61 which is stable from recent lab from the previous hospital. The BUN is 50. Phosphorus is low at 2.4. Magnesium is normal at 2.2. LFTs are unremarkable. Albumin is very low at 1.6. Blood sugar record was reviewed. The blood sugar at at bedtime was 221 and the fasting today was 180. Apparently he was taking NPH on a sliding scale at home but was transition to Lantus and lispro with meals at the previous hospital. [facility] Medical History (Updated 12/16/24 @ 19:[address] Kierra Jacobson DO) Chronic renal failure, stage 3 (moderate) Presbycusis Diabetic neuropathy, type II diabetes mellitus Diabetes mellitus, type 2 Normochromic normocytic anemia Wears hearing aid Wears glasses Wears dentures Arthritis Gout High cholesterol Non-smoker Shortness of breath on exertion Hypertension History of echocardiogram History of rheumatic fever Cardiology follow-up encounter Cancer Myocardial infarction LBBB (left bundle branch block) History of TIAs Dizziness CAD in [place] artery Bradycardia Bladder incontinence Blood in stool Aortic stenosis Actinic keratosis Morbid obesity Neuropathy Chronic GERD MARTIN on CPAP Kidney disease, chronic, stage III (GFR 30-59 ml/min) Recurrent major depression CHF (congestive heart failure) Type 2 diabetes with complication Home Medications ?Medication ?Instructions ?Recorded ?Last Taken ?Type allopurinol 100 mg tablet 100 mg PO QDAY gout 09/20/24 Unknown History aspirin 81 mg tablet,delayed 81 mg PO DAILY heart heal th 09/20/24 12/14/24 History release (Adult Aspirin Regimen) carvedilol 25 mg tablet 12.5 mg PO BID HTN 09/20/24 12/01/24 08:00 History gabapentin 600 mg tablet 600 mg PO BID pain 09/20/24 Unknown History hydralazine 100 mg tablet 100 mg PO TID HTN 09/20/24 0 12/01/24 08:00 History insulin NPH isoph U-100 human 100 See Protocol subcut TID dm 09/20/24 Unknown History unit/mL subcutaneous suspension (Novolin N NPH U-100 Insulin isophane) Held on 12/14/24. Instructions: MD Ordered isosorbide mononitrate 30 mg 30 mg PO DAILY BP 4 Unknown History tablet,extended release 24 hr pantoprazole 40 mg tablet,delayed 40 mg PO QDAY REFLUX 09/20/24 Unknown History release Held on 12/14/24. Instructions: MD Ordered potassium chloride 20 mEq 20 meq PO DAILY SUPPLEMENT 1 11/20/23 Unknown History tablet,extended release sertraline 100 mg tablet 100 mg PO DAILY DEPRESSION 1 11/20/23 Unknown History Allergy/AdvReac Type Severity Reaction Status Date / Time amlodipine (From Norvasc) Allergy Intermediate Other Verified 12/01/24 09:00 hydrochlorothiazide Allergy Intermediate Other Verified 12/01/24 09:00 olmesartan Allergy Intermediate Other Verified 12/01/24 09:00 penicillin G benzathine Allergy Intermediate Other Verified 12/01/24 09:00 Penicillins (PCN) Allergy Intermediate Other Verified 12/01/24 09:00 pravastatin Allergy Intermediate Other Verified 12/01/24 09:00 valsartan (From Diovan) Allergy Intermediate Other Verified 12/01/24 09:00 Family History (Updated 12/15/24 @ 17:[address] Kierra Jacobson DO) Father Heart disease Prostate cancer CAD (coronary artery disease) Sister HLD (hyperlipidemia) Hypertension Surgical History History of cardiac catheterization History of heart surgery History of cataract extraction with lens replacement Hx of CABG Hx of tonsillectomy H/O colectomy Hx of ileostomy H/O endarterectomy S/P TAVR (transcatheter aortic valve replacement) Social History (Updated 12/15/24 @ 17:[address] Kierra Jacobson DO) household members: spouse housing: other details: Lives in a [id number] suite at his daughter Dominique's home. Smoking Status: Never smoker alcohol intake: never substance use type: does not use ROS Review of Systems ROS Unobtainable: Denies due to encephalopathy, due to endotracheal tube, due to mental condition or due to mental status Constitutional Constitutional: Reports fatigue and weakness; Denies anorexia, change in weight, chills, fever(s) or night sweats Eyes Eyes: Denies blurry vision, change in vision, eye pain or loss of vision ENT HEENT: Denies abnormal hearing, dysphagia, headache(s), hearing loss, nasal congestion or sore throat Cardiovascular Cardiovascular: Reports easily tiring during activity; Denies chest pain, dyspnea on exertion, edema, lightheadedness, orthopnea, palpitations, paroxysmal nocturnal dyspnea or syncope Respiratory/Chest Respiratory/Chest: Reports cough and dyspnea on exertion; Denies dyspnea, shortness of breath at rest, shortness of breath with exertion or wheezing Gastrointestinal Gastrointestinal: Denies abdominal pain, constipation, diarrhea, dyspepsia, hematemesis, hematochezia, nausea or vomiting Genitourinary Genitourinary: Denies dysuria, hematuria, nocturia, urinary frequency, urinary hesitancy, urinary incontinence or urinary urgency Musculoskeletal Musculoskeletal: Denies back pain, joint pain, joint swelling or neck pain Integumentary Integumentary: Denies jaundice Neurologic Neurologic: Denies confusion, disequilibrium, dizziness, focal weakness, headache(s), paresthesias, seizures or tremor(s) Psychiatric Psychiatric: Denies anxiety, depression, homicidal ideation or suicidal ideation Endocrine Endocrinology: Denies change in body appearance, polydipsia or polyuria Hematologic/Lymphatic Hematologic/Lymphatic: Denies easy bleeding, easy bruising or lymphadenopathy Allergic/Immunologic Allergic/Immunologic: Denies rhinitis, eczemia or asthma Vital Signs Vital Signs Vital Signs: 12/13/24 19:22 12/13/24 21:39 12/13/24 21:49 Temperature 98.2 F Temperature Source Temporal Pulse Rate 59 L 62 62 Respiratory Rate 17 Respiratory Effort Respiratory Depth Respiratory Pattern Blood Pressure 181/66 H 192/69 H 192/69 H Blood Pressure Mean 104 110 Blood Pressure Source Monitor Monitor Blood Pressure Position Semi-Fowlers Semi-Fowlers Blood Pressure Location Right Arm Right Arm Pulse Ox 94 Oxygen Delivery Method Room Air Oxygen Flow Rate (L/min) 12/13/24 22:00 12/13/24 23:00 12/13/24 23:40 Temperature Temperature Source Pulse Rate 62 Respiratory Rate Respiratory Effort Normal Non-Labored Respiratory Depth Normal Respiratory Pattern Normal Blood Pressure 149/60 H Blood Pressure Mean 89 Blood Pressure Source Monitor Blood Pressure Position Semi-Fowlers Blood Pressure Location Left Forearm Pulse Ox 98 Oxygen Delivery Method Room Air CPAP Oxygen Flow Rate (L/min) 2 12/14/24 06:49 12/14/24 06:59 12/14/24 10:00 Temperature 97.3 F L Temperature Source Oral Pulse Rate 62 62 Respiratory Rate 16 Respiratory Effort Normal Non-Labored Respiratory Depth Normal Respiratory Pattern Normal Blood Pressure 188/71 H 188/71 H Blood Pressure Mean 110 Blood Pressure Source Monitor Blood Pressure Position Semi-Fowlers Blood Pressure Location Left Forearm Pulse Ox 95 Oxygen Delivery Method Room Air Room Air Oxygen Flow Rate (L/min) Weight Weight: 294 lb 15.656 oz Body Mass Index (BMI) 41.1 Physical Exam Const alert and no apparent distress Constitutional Narrative: Pleasant and appropriate. General Appearance: cooperative, well kempt and well developed HEENT HEENT Narrative: Mucous membranes are dry. No evidence of thrush. Eyes PERRL, EOMs intact bilaterally, conjunctivae normal and no scleral icterus Eyes Narrative: No discharge from the eyes. General Eye: normal appearance of both eyes Neck supple Chest Chest: symmetrical chest wall rise Resp normal respiratory effort Resp Narrative: Breath sounds are mildly diminished throughout, more likely than not secondary to body habitus. Inspiratory wheeze....mild, I suspect it is coming from the upper airwar.....I hear it best over the neck. Not tachypneic. Respiration is not labored. Effort and Inspection: able to speak in complete sentences Cardio regular rate, regular rhythm, no rub and no gallops Cardio Narrative: He has a 2/6 systolic ejection murmur heard best at the second right intercostal space with radiation to the lower left sternal border and the apex. No ectopy appreciated. GI normal to inspection, nondistended, normoactive bowel sounds and soft to palpation GI Narrative: Obese. No guarding with palpation. no CVA tenderness Narrative: Having hematuria. He had a Fournier catheter at the previous institution. Extremity no calf tenderness Extremity Narrative: JULIETH hose are in place. No significant pitting edema of the lower extremities. Skin no jaundice Rashes: no rashes Neuro oriented x3, CN's II-XII intact bilaterally and moves all extremities Psych cooperative, denies hallucinations, denies homicidal ideation and denies suicidal ideation Appearance: grossly normal, appropriate and well kempt Attitude: calm and engaged Results Lab / Micro Data 12/14/24 04:25 12/16/24 07:00 Labs: Laboratory Results - last 24 hr 12/13/24 21:39: POC Glucose 221 H 12/14/24 04:25: WBC 8.2, RBC 3.38 L, Hgb 10.2 L, Hct 29.0 L, MCV 85.8, MCH 30.2, MCHC 35.2, RDW Std Deviation 41.0, RDW Coeff of Jose 13.2, Plt Count 213, MPV 10.8, Neut % (Auto) Not Reportable, Absolute Neuts (auto) 5.1, Absolute Lymphs (auto) 1.79, Total Counted 100, Neutrophils % (Manual) 62, Band Neutrophils % 1, Lymphocytes % (Manual) 22, Monocytes % (Manual) 9, Eosinophils % (Manual) 5, Metamyelocytes % 1, Diff Path Review March, Platelet Estimate ADEQUATE, RBC Morphology NORM C+C, Sodium 141, Potassium 2.8 L, Chloride 107, Carbon Dioxide 27.0, Anion Gap 7, BUN 50 H, Creatinine 1.61 H, Estim Creat Clear Calc 45.98, E st GFR (MDRD) Af Amer 53 L, Est GFR (MDRD) Non-Af 43 L, BUN/Creatinine Ratio 31.1 H, Glucose 202 H, Calcium 8.3 L, Phosphorus 2.4 L, Magnesium 2.2, Total Bilirubin 0.30, AST 24, ALT 30, Alkaline Phosphatase 49, Total Protein 5.4 L, A lbumin 1.6 L, Globulin 3.8, Albumin/Globulin Ratio 0.4 L 12/14/24 06:56: POC Glucose 180 H Assessment & Plan Assessment/Plan (1) Physical debility: (2) Acute renal failure superimposed on stage 3 chronic kidney disease: QUALIFIERS: Acute renal failure type: unspecified Chronic kidney disease stage 3 subtype: unspecified whether 3a or 3b Qualified Code(s): N17.9 - Acute kidney failure, unspecified; N18.30 - Chronic kidney disease, stage 3 unspecified (3) Acute uremia: PLAN: with mental status changes (4) Metabolic acidosis: (5) Hypokalemia: (6) Normochromic normocytic anemia: (7) Hypophosphatemia: (8) Hypoalbuminemia: (9) Generalized weakness: (10) Recurrent major depression: QUALIFIERS: Active/Remission status: remission status unspecified Qualified Code(s): F33.9 - Major depressive disorder, recurrent, unspecified (11) Hypertension: QUALIFIERS: Hypertension type: primary hypertension Qualified Code(s): I10 - Essential (primary) hypertension (12) Sleep apnea: QUALIFIERS: Sleep apnea type: obstructive Qualified Code(s): G 47.33 - Obstructive sleep apnea (adult) (pediatric) (13) High cholesterol: (14) Diabetes mellitus, type 2: QUALIFIERS: Diabetes mellitus half-way insulin use: with half-way use Diabetes mellitus complication status: with kidney complications D iabetes mellitus complication detail: with chronic kidney disease Chronic kidney disease stage: stage 3 (moderate) Chronic kidney disease stage 3 subtype: unspecified whether 3a or 3b Qualified Code(s): E11.22 - Type 2 diabetes mellitus with diabetic chronic kidney disease; N18.30 - Chronic kidney disease, stage 3 unspecified; Z79.4 - group home (current) use of insulin (15) Hx of colon cancer, stage IV: (16) Chronic renal failure, stage 3 (moderate): QUALIFIERS: Chronic kidney disease stage 3 subtype: unspecified whether 3a or 3b Qualified Code(s): N18.30 - Chronic kidney disease, stage 3 unspecified PLAN: Plan PLAN PT for gait stability OT for ADL's Analgesics as needed Bowel protocol Fall precautions Assess for Anxiety/Depression GI prophylaxis -he was not transferred on any GI prophylaxis. He denies nausea, vomiting, epigastric pain, heartburn. He is eating 75 to 100% of his meals so far. DVT prophylaxis with SCD's for now and restart Heparin when hematuria resolves. Follow up with PCP and nephrology following DC from [facility] AM lab including CMP, CBC, Mag and Phos Hold Heparin due to hematuria. Order SCD's. Recheck potassium at 5 PM today Check a hemoglobin A1c, uric acid PT/INR and PTT today Add Cardura 2 mg at HS for blood pressure control Check orthostatics Postvoid residuals ordered Charges/Coding Visit Charges Inpatient E&M: 02295 Init Hosp L2
[2024-12-14 12:12] LABS: Bedside Glucose 194 mg/dL (74-106)
[2024-12-14] MEDS: Potassium Chloride Oral Tablet 20 MEQ 40 MEQ PO (12:52)
[2024-12-14 13:46] LABS: Hemoglobin A1c 7.5 % (3.8-5.6)
[2024-12-14 15:24] LABS: Uric Acid 6.4 mg/dL (3.5-7.2)
[2024-12-14 17:00] LABS: Bedside Glucose 170 mg/dL (74-106)
[2024-12-14 17:50] LABS: Mucous, Urine 0 SEEN /hpf (<or=2+); Squamous Epithelial Cells - UA 0 SEEN /hpf (0-5)
[2024-12-14 18:01] LABS: Color, Urine Yellow (Yellow); Glucose, Dipstick Normal (Normal); Ketone-Dipstick Negative (Negative); Leukocyte Esterase-Dipstick 100 /ul (Negative); Nitrite-Dipstick Negative (Negative); Occult Blood-Urine 250 /ul (Negative); Protein-Dipstick 30 mg/dl (Negative); Urine Bilirubin Dipstick Negative (Negative); Urine Clarity Clear (Clear); Urine Urobilinogen Normal (Normal)
[2024-12-14 18:03] LABS: International Normalized Ratio 1.1; Potassium 3.5 mmol/L (3.5-5.1); Prothrombin Time (Protime)PT. 13.9 SECONDS (11.7-14.9)
[2024-12-14 18:04] LABS: Partial Thromboplast Time 24.1 Seconds (24.1-36.2)
[2024-12-14 18:14] LABS: Bacteria 2+ /hpf (None Seen); Red Blood Cells-Urine 5-10 SEEN /hpf (0-5); White Blood Cells 0-5 SEEN /hpf (0-5)
[2024-12-14] MEDS: Doxazosin 1 MG Tablet 2 MG PO (20:33)
[2024-12-14 22:06] LABS: Bedside Glucose 204 mg/dL (74-106)
[2024-12-14] MEDS: Insulin Glargine-YFGN 100 UNIT/ML Pen 15 UNIT SC (22:27)
[2024-12-15] VITALS (7 sets, daily range): BP systolic 112–164; BP diastolic 46–71; PULSE 53–63; RESP 16–18; TEMP 36.2–36.8; O2SAT 94; BMI 41.8
--- NOTE | 2024-12-15 00:44 | NURSING ---
no hematuria or clots noted in urine tonight.
[2024-12-15] MEDS: hydrALAZINE 50 MG Tablet 100 MG PO ×3 (06:25→22:10)
[2024-12-15 06:37] LABS: Bedside Glucose 171 mg/dL (74-106)
[2024-12-15] MEDS: Aspirin E.C. 81 MG Tablet PO (08:29)
[2024-12-15] MEDS: Potassium Chloride Oral Tablet 20 MEQ PO (08:29)
[2024-12-15] MEDS: Gabapentin 600 MG Tablet PO ×2 (08:29→22:11)
[2024-12-15] MEDS: Carvedilol 12.5 MG Tablet PO ×2 (08:29→17:26)
[2024-12-15] MEDS: Sertraline 100 MG Tablet PO (08:29)
[2024-12-15] MEDS: Isosorbide Mononitrate 30 MG Tablet PO (08:30)
[2024-12-15] MEDS: Insulin Lispro 100 UNIT/ML INSULN.PEN SC ×2 (08:30→17:26)
[2024-12-15] MEDS: Senna/Docusate Sodium 1 Tablet 2 TABLET PO ×2 (08:30→22:10)
[2024-12-15] MEDS: Allopurinol 100 MG Tablet PO (08:30)
[2024-12-15] MEDS: Insulin Lispro 100 UNIT/ML INSULN.PEN 8 UNIT SC ×3 (08:30→17:26)
[2024-12-15 12:39] LABS: Bedside Glucose 127 mg/dL (74-106)
[2024-12-15 14:10] LABS: Pathologist Review Reviewed
--- NOTE | 2024-12-15 16:42 | REHABEVAL_ITS ---
Admission Information Primary Diagnosis:: Debility due to generalized weakness Status Changes from Prescreening?: No changes Identified Actual Problem List:: Cognitve Impr/Memory Loss, Bladder Incontinence, Mobility Impaired, Self Care Deficit, Ineffective Communication, Know.Dfct/Disease Process, Know.Dfct of Medicaitons, BP, Hypertension and Alteration-Leisure Activ. Potential Problem List:: DVT, Bleeding, Infection, UTI, Aspiration, Falls, Skin Integrity and Depression Risk of Complications DVT: JULIETH Hose and - Bleeding: Monitor Lab Values, Nursing to Teach Precautions for anti-coagulation therapy., Wound, if applicable, to be assessed every shift. and Stroke patients assessed for lethargy or change in status. Infection: Clinical Staff to Monitor for S/S of infection: and S/S of infection include fever, redness, warmth, etc. Urinary Tract Infection: Monitor for frequency, burning, discomfort, or incontinence. and Nursing will obtain urine sample for urinalysis and C&S when ordered. Aspiration: Clinical staff will monitor for coughing, drooling, congestion., Speech will evaluate swallowing and dsyphasia. and Nursing will monitor patient swallowing during meals. Falls: Patient will be evaluated for Fall Precautions and Patient will be placed on Fall Precautions as indicated per protocol. Skin Breakdown: Nursing will assess skin daily using assessment tool. and Nursing will place on Skin Breakdown Precautions as indicated. Pain: Clinical staff will assess patient's pain level per protocol., Medications will be given, if needed, and the pain level reassessed. and Other methods: Massage, distraction, decrease stimulus, etc. used PRN. Plan of Care Patient requires physician specializing in physical medicine and rehab oversight to provide close medical supervision of rehab issues including: Pain Management, Sleep Problems, Bowel and Bladder, Medical and co-morbidity Management, DVT prophylaxis, Rehabilitation Leadership and Coordination of treatment team Patient needs Physical Therapy: For a minimum of 1 hour and At least 5 out of 7 days Patient needs Physical Therapy to improve:: Mobility, Strengthening, Transfers, Stretching, ROM, Endurance, Stairs, Gait and Balance Patient needs Occupational Therapy: For a minimum of 1 hour and At least 5 out of 7 days Patient needs Occupational Therapy to improve ADL's incl.: Eating, Grooming, Bathing, Dressing, Toileting, Toilet transfers, Community Reintegration, Higher functioning activities, Household tasks, Adaptive Equipment, Splinting and Other activities as determined Patient requires speech therapy: For a minimum of 1 hour and At least 5 out of 7 days Patient requires speech therapy for: Swallowing, Cognition, Language Skills and Compensatory Strategies Patient requires 24 Rehabilitation Nursing for: Pain Issues, Identifying and preventing risk factors, Monitoring and reporting current medical conditions, Assisting with ambulation, transfer, and all ADL's, Teaching patients about disease process and medications, Family teaching, Providing safe environment, Bowel and Bladder Issues, Skin integrity and Medication Management Patient needs Network Diagnostic Support Specialist/ Case Management for: Discharge Planning, Arranging Home Equipment or Services and Family Interventions Patient needs Dietary and Nutrition Services for: Adequate Nutrition, Nutritional Supplements and Nutritional Education Goals Goals Patient will remain: free from falls Patient will perform eating at: MOD I level of assist. Patient will perform bed mobility at: MOD I level of assist. Patient will complete transfers from bed to chair at: MOD I level of assist. Patient will ambulate: - (220 feet with least restrictive device with supervision) Patient will complete upper body dressing at: MOD I level of assist. Patient will complete lower body dressing at: MOD I level of assist. (With adaptive equipment as needed) Patient will complete toilet transfer at: MOD I level of assist. Patient will complete toileting at: MOD I level of assist. Patient will perform bathing at: - (He will complete upper body bathing independently and lower body bathing at mod I with adaptive equipment as needed.) Patient will perform Tub/Shower transfer at: - (Supervision using DME as needed as needed.) Patient will complete grooming at: MOD I level of assist. (While standing at the sink) Patient will achieve: - (3-4 6 inch steps using a handrail at standby assist) Patient will have pain level of: of 3 or less Patient's skin will: remain intact Patient will receive: adequate nutrition. Discharge Planning Pt Prognosis for Sig. Practical Improv. w/in Reasonable Time: Good Estimated Length of stay (days): 28 Anticipated D/C Destination: Home with Outpt Therapy
--- NOTE | 2024-12-15 16:42 | PCM.PROGNOTE ---
Subjective Subjective Afebrile VSS -blood pressure has ranged from 143/52 164/61 over the past 24 hours. Heart rate has ranged from 56-87. Maintaining appropriate oxygen saturation on RA Oral intake - FOOD good FLUIDS fair The blood sugar record was reviewed. No hypoglycemia. Discussed with nursing -has only had 1 postvoid residual and it was 170. He has been voiding in the urinal. Reviewed the THERAPY notes Medication list reviewed. Urine culture pending Denies lightheadedness, chest pain, shortness of breath, palpitations, nausea/vomiting/abdominal pain, dysuria, calf tenderness. He tells me that his urine is no longer bloody. He slept pretty well last night and he has a good appetite. Objective Data Objective Data Vital Signs: Vital Signs Temp Pulse Resp BP Pulse Ox O2 Del Method O2 Flow Rate 97.1 F L 56 L 18 164/61 H 94 Room Air 2 12/15/24 06:20 12/15/24 14:55 12/15/24 06:20 12/15/24 06:25 12/15/24 11:00 12/15/24 11:00 12/13/24 23:00 Oxygen Flow Rate (L/min) 2 Oxygen Delivery Method Room Air Weight: 299 lb 9.731 oz Body Mass Index (BMI) 41.8 Intake & Output: Intake and Output for Last 24 Hours 12/13/24 12/14/24 12/15/24 23:59 23:59 23:59 Intake Total 1320 / 1320 600 / 600 Output Total 450 / 450 450 / 450 Balance 870 / 870 150 / 150 Lab / Micro Data 12/14/24 04:25 12/16/24 07:00 Labs: Laboratory Results - last 24 hr 12/14/24 04:25: Diff Path Review Reviewed 12/14/24 16:18: POC Glucose 170 H 12/14/24 17:15: Urine Color Yellow, Urine Clarity Clear, Urine pH 6.0, Ur Specific [place] 1.010, Urine Protein 30 H, Urine Glucose (UA) Normal, Urine Ketones Negative, Urine Occult Blood 250 H, Urine Nitrite Negative, Urine Bilirubin Negative, Urine Urobilinogen Normal, Ur Leukocyte Esterase 100 H, Urine RBC 5-10 SEEN, Urine WBC 0-5 SEEN, Ur Squamous Epith Cells 0 SEEN, Urine Bacteria 2+, Urine Mucus 0 SEEN 12/14/24 17:30: PT 13.9, INR 1.1, APTT 24.1, Potassium 3.5 12/14/24 21:08: POC Glucose 204 H 12/15/24 06:19: POC Glucose 171 H 12/15/24 12:17: POC Glucose 127 H Physical Exam Const alert and no apparent distress Constitutional Narrative: Pleasant and appropriate. General Appearance: cooperative Resp normal respiratory effort and clear to auscultation bilaterally Auscultation: diminished lung sounds Cardio regular rate, regular rhythm, no rub and no gallops Cardio Narrative: He has a 2/6 systolic ejection murmur heard best at the second right intercostal space with radiation to the lower left sternal border and the apex. No ectopy appreciated. GI normal to inspection, nondistended, normoactive bowel sounds and soft to palpation GI Narrative: Obese. No guarding with palpation. Extremity no calf tenderness Extremity Narrative: JULIETH hose are in place. No significant pitting edema of the lower extremities. Assessment & Plan Assessment/Plan (1) Physical debility: (2) Acute renal failure superimposed on stage 3 chronic kidney disease: QUALIFIERS: Acute renal failure type: unspecified Chronic kidney disease stage 3 subtype: unspecified whether 3a or 3b Qualified Code(s): N17.9 - Acute kidney failure, unspecified; N18.30 - Chronic kidney disease, stage 3 unspecified (3) Acute uremia: (4) Metabolic acidosis: (5) Hypokalemia: (6) Normochromic normocytic anemia: (7) Hypophosphatemia: (8) Hypoalbuminemia: (9) Generalized weakness: (10) Recurrent major depression: QUALIFIERS: Active/Remission status: remission status unspecified Qualified Code(s): F33.9 - Major depressive disorder, recurrent, unspecified (11) Hypertension: QUALIFIERS: Hypertension type: primary hypertension Qualified Code(s): I10 - Essential (primary) hypertension (12) Sleep apnea: QUALIFIERS: Sleep apnea type: obstructive Qualified Code(s): G47.33 - Obstructive sleep apnea (adult) (pediatric) (13) High cholesterol: (14) Diabetes mellitus, type 2: QUALIFIERS: Diabetes mellitus long term care administrator insulin use: with long term care administrator use Diabetes mellitus complication status: with kidney complications Diabetes mellitus complication detail: with chronic kidney disease Chronic kidney disease stage: stage 3 (moderate) Chronic kidney disease stage 3 subtype: unspecified whether 3a or 3b Qualified Code(s): E11.22 - Type 2 diabetes mellitus with diabetic chronic kidney disease; N18.30 - Chronic kidney disease, stage 3 unspecified; Z79.4 - terminal clerk (current) use of insulin (15) Hx of colon cancer, stage IV: (16) Chronic renal failure, stage 3 (moderate): QUALIFIERS: Chronic kidney disease stage 3 subtype: unspecified whether 3a or 3b Qualified Code(s): N18.30 - Chronic kidney disease, stage 3 unspecified PLAN: Plan 1. Continue therapy. 2. Systolic blood pressure is above goal however he was just started on Cardura. As needed medication has been ordered for markedly elevated blood pressures. Will reassess on Thursday whether he needs additional antihypertensives. 3. Recheck lab in the AM. Charges/Coding Visit Charges Inpatient E&M: 97205 Subs Hosp L1
[2024-12-15 16:56] LABS: Bedside Glucose 156 mg/dL (74-106)
[2024-12-15] MEDS: Doxazosin 1 MG Tablet 2 MG PO (22:10)
[2024-12-15] MEDS: Insulin Glargine-YFGN 100 UNIT/ML Pen 15 UNIT SC (22:16)
[2024-12-15 22:38] LABS: Bedside Glucose 173 mg/dL (74-106)
[2024-12-16 05:29] VITALS: BP 169/60; PULSE 62; RESP 16; TEMP 36.9; O2SAT 96
[2024-12-16 05:34] VITALS: BP 169/60; PULSE 62
[2024-12-16] MEDS: hydrALAZINE 50 MG Tablet 100 MG PO ×2 (05:34→13:35)
[2024-12-16 06:00] VITALS: BMI 41.9
[2024-12-16 07:28] LABS: Bedside Glucose 160 mg/dL (74-106)
[2024-12-16 07:36] LABS: Anion Gap 4 (5-15); BUN 48 mg/dL (7-18); BUN/Creat Ratio 34.5 RATIO (10-20); Calcium,Total 8.4 mg/dL (8.5-10.1); Chloride 113 mmol/L (98-107); Creatinine, Serum 1.39 mg/dL (0.70-1.30); EST Glomerular Filtration Rate 52 mL/min (>60); Est Glom Filt Rate - Afr Amer 62 mL/min (>60); Estimated Creatinine Clearance 53.79 ml/min; Glucose 159 mg/dL (74-106); Potassium 3.2 mmol/L (3.5-5.1); Sodium Level 144 mmol/L (136-145)
[2024-12-16] MEDS: Allopurinol 100 MG Tablet PO (07:52)
[2024-12-16] MEDS: Sertraline 100 MG Tablet PO (07:52)
[2024-12-16] MEDS: Aspirin E.C. 81 MG Tablet PO (07:52)
[2024-12-16] MEDS: Insulin Lispro 100 UNIT/ML INSULN.PEN SC (07:52)
[2024-12-16] MEDS: Insulin Lispro 100 UNIT/ML INSULN.PEN 8 UNIT SC ×3 (07:52→17:29)
[2024-12-16] MEDS: Carvedilol 12.5 MG Tablet PO ×2 (07:52→17:29)
[2024-12-16] MEDS: Isosorbide Mononitrate 30 MG Tablet PO (07:52)
[2024-12-16] MEDS: Potassium Chloride Oral Tablet 20 MEQ PO (07:52)
[2024-12-16] MEDS: Gabapentin 600 MG Tablet PO (07:58)
[2024-12-16 11:49] LABS: Bedside Glucose 99 mg/dL (74-106)
[2024-12-16 13:35] VITALS: BP 145/45; PULSE 60
[2024-12-16 17:13] LABS: Bedside Glucose 95 mg/dL (74-106)
[2024-12-16 18:00] VITALS: BP 155/62; PULSE 65; RESP 18; TEMP 36.8; O2SAT 95
[2024-12-16 19:39] VITALS: O2SAT 94
[2024-12-16 21:17] LABS: Bedside Glucose 95 mg/dL (74-106)
[2024-12-17] VITALS (8 sets, daily range): BP systolic 122–190; BP diastolic 37–65; PULSE 55–70; RESP 16–20; TEMP 36.9–37.1; O2SAT 96–97; BMI 42.0
[2024-12-17] MEDS: Gabapentin 600 MG Tablet PO ×3 (00:18→22:33)
[2024-12-17] MEDS: Doxazosin 1 MG Tablet 2 MG PO ×2 (00:19→22:25)
[2024-12-17] MEDS: hydrALAZINE 50 MG Tablet 100 MG PO ×4 (00:19→22:25)
[2024-12-17] MEDS: Insulin Glargine-YFGN 100 UNIT/ML Pen 15 UNIT SC ×2 (00:23→22:28)
[2024-12-17] MEDS: Heparin Injection (Vial) 5,000 UNIT/ML VIAL 5000 UNIT SC ×4 (00:23→22:26)
[2024-12-17] MEDS: Potassium Chloride Oral Tablet 20 MEQ 40 MEQ PO (00:29)
[2024-12-17 07:32] LABS: Bedside Glucose 138 mg/dL (74-106)
[2024-12-17] MEDS: Insulin Lispro 100 UNIT/ML INSULN.PEN 8 UNIT SC ×3 (08:38→17:07)
[2024-12-17] MEDS: Potassium Chloride Oral Tablet 20 MEQ PO (08:39)
[2024-12-17] MEDS: Carvedilol 12.5 MG Tablet PO ×2 (08:39→16:15)
[2024-12-17] MEDS: Aspirin E.C. 81 MG Tablet PO (08:39)
[2024-12-17] MEDS: Isosorbide Mononitrate 30 MG Tablet PO (08:40)
[2024-12-17] MEDS: Allopurinol 100 MG Tablet PO (08:40)
[2024-12-17] MEDS: Sertraline 100 MG Tablet PO (08:41)
[2024-12-17 11:57] LABS: Bedside Glucose 122 mg/dL (74-106)
[2024-12-17 16:45] LABS: Bedside Glucose 90 mg/dL (74-106)
[2024-12-17 22:55] LABS: Bedside Glucose 101 mg/dL (74-106)
[2024-12-18] VITALS: BP 116/49
[2024-12-18 06:48] VITALS: BP 127/55; PULSE 61; RESP 16; TEMP 36.4; O2SAT 95
[2024-12-18 06:49] VITALS: BMI 42.1
[2024-12-18] MEDS: Heparin Injection (Vial) 5,000 UNIT/ML VIAL 5000 UNIT SC ×3 (06:51→20:34)
[2024-12-18 06:56] VITALS: BP 127/55; PULSE 61
[2024-12-18] MEDS: hydrALAZINE 50 MG Tablet 100 MG PO ×3 (06:56→20:32)
[2024-12-18 07:19] LABS: Bedside Glucose 140 mg/dL (74-106)
[2024-12-18] MEDS: Carvedilol 12.5 MG Tablet PO ×2 (08:02→17:11)
[2024-12-18] MEDS: Allopurinol 100 MG Tablet PO (08:03)
[2024-12-18] MEDS: Aspirin E.C. 81 MG Tablet PO (08:03)
[2024-12-18] MEDS: Potassium Chloride Oral Tablet 20 MEQ PO (08:03)
[2024-12-18] MEDS: Insulin Lispro 100 UNIT/ML INSULN.PEN 8 UNIT SC ×3 (08:04→17:11)
[2024-12-18] MEDS: Sertraline 100 MG Tablet PO (09:33)
[2024-12-18] MEDS: Gabapentin 600 MG Tablet PO ×2 (09:33→20:41)
[2024-12-18] MEDS: Isosorbide Mononitrate 30 MG Tablet PO (09:33)
[2024-12-18] MEDS: Senna/Docusate Sodium 1 Tablet 2 TABLET PO ×2 (09:35→20:38)
[2024-12-18 12:00] LABS: Bedside Glucose 153 mg/dL (74-106)
[2024-12-18] MEDS: Insulin Lispro 100 UNIT/ML INSULN.PEN SC ×2 (12:21→17:12)
[2024-12-18 14:09] VITALS: PULSE 55
[2024-12-18 17:02] LABS: Bedside Glucose 169 mg/dL (74-106)
[2024-12-18 17:31] VITALS: BP 147/61; PULSE 58; RESP 17; TEMP 37; O2SAT 97
[2024-12-18 20:32] VITALS: BP 194/68; PULSE 61
[2024-12-18] MEDS: Doxazosin 1 MG Tablet 2 MG PO (20:32)
[2024-12-18] MEDS: Insulin Glargine-YFGN 100 UNIT/ML Pen 15 UNIT SC (20:37)
[2024-12-18 21:59] LABS: Bedside Glucose 95 mg/dL (74-106)
[2024-12-19 05:30] VITALS: BP 134/49; PULSE 57; RESP 16; TEMP 36.5; O2SAT 96
[2024-12-19 05:32] VITALS: BMI 42.5
[2024-12-19 06:08] VITALS: BP 165/52; PULSE 60
[2024-12-19] MEDS: hydrALAZINE 50 MG Tablet 100 MG PO ×3 (06:08→22:34)
[2024-12-19] MEDS: Heparin Injection (Vial) 5,000 UNIT/ML VIAL 5000 UNIT SC ×3 (06:10→22:36)
[2024-12-19 07:03] LABS: Bedside Glucose 109 mg/dL (74-106)
[2024-12-19] MEDS: Insulin Lispro 100 UNIT/ML INSULN.PEN 8 UNIT SC (08:03)
[2024-12-19] MEDS: Isosorbide Mononitrate 30 MG Tablet PO (08:04)
[2024-12-19] MEDS: Carvedilol 12.5 MG Tablet PO ×2 (08:04→17:32)
[2024-12-19] MEDS: Allopurinol 100 MG Tablet PO (08:04)
[2024-12-19] MEDS: Potassium Chloride Oral Tablet 20 MEQ PO (08:04)
[2024-12-19] MEDS: Aspirin E.C. 81 MG Tablet PO (08:04)
[2024-12-19] MEDS: Sertraline 100 MG Tablet PO (08:05)
[2024-12-19] MEDS: Gabapentin 600 MG Tablet PO ×2 (08:08→22:34)
[2024-12-19 08:21] LABS: Anion Gap 6 (5-15); BUN 30 mg/dL (7-18); BUN/Creat Ratio 27.8 RATIO (10-20); Calcium,Total 8.1 mg/dL (8.5-10.1); Chloride 115 mmol/L (98-107); Creatinine, Serum 1.08 mg/dL (0.70-1.30); EST Glomerular Filtration Rate 69 mL/min (>60); Est Glom Filt Rate - Afr Amer 83 mL/min (>60); Estimated Creatinine Clearance 69.79 ml/min; Glucose 114 mg/dL (74-106); Potassium 3.4 mmol/L (3.5-5.1); Sodium Level 145 mmol/L (136-145)
--- NOTE | 2024-12-19 10:08 | PN_ITS ---
Subjective Subjective Golden was seen on team rounds today. His daughter was present in the room. All questions were answered to their satisfaction. Afebrile VSS -over the past 48 hours the blood pressure has ranged from 122/54 to 194/68. It is the at bedtime blood pressure that is markedly elevated. For the past 2 days it has been 190/65 and 194/68. Heart rate has ranged from 55-61. Maintaining appropriate oxygen saturation on RA while awake Oral intake - FOOD good FLUIDS good Weight is up 10 pounds since admission to rehab. Postvoid residuals x 3 are all less than 175. The last postvoid residual was 4 cc. The blood sugar record was reviewed. No hypoglycemia and no blood sugars over 180. Discussed with nursing - no problems that need addressed Reviewed the THERAPY notes Medication list reviewed. All lab was personally reviewed. The sodium is 145 and the potassium is 3.4, up from 2.8 at admission. The BUN is 30 and the creatinine is down to 1.08. Creatinine was 1.61 on 12/14/2024. He has a known history of chronic renal failure stage III and creatinine has ranged from 1.3-1.6 in the past. Objective Data Objective Data Vital Signs: Vital Signs Temp Pulse Resp BP Pulse Ox O2 Del Method O2 Flow Rate 97.7 F L 60 16 165/52 H 96 CPAP 2 12/19/24 05:30 12/19/24 06:08 12/19/24 05:30 12/19/24 06:08 12/19/24 05:30 12/19/24 05:30 12/16/24 05:29 Oxygen Flow Rate (L/min) 2 Oxygen Delivery Method CPAP Weight: 304 lb 14.4 oz Body Mass Index (BMI) 42.5 Intake & Output: Intake and Output for Last 24 Hours 12/17/24 12/18/24 12/19/24 23:59 23:59 23:59 Intake Total 1640 / 2490 2790 / 3610 1070 / 1070 Output Total 550 / 750 1200 / 1400 400 / 400 Balance 1090 / 1740 1590 / 2210 670 / 670 Lab / Micro Data 12/14/24 04:25 12/19/24 07:10 Labs: Laboratory Results - last 24 hr 12/18/24 11:42: POC Glucose 153 H 12/18/24 16:42: POC Glucose 169 H 12/18/24 20:28: POC Glucose 95 12/19/24 06:14: POC Glucose 109 H 12/19/24 07:10: Sodium 145, Potassium 3.4 L, Chloride 115 H, Carbon Dioxide 24.0, Anion Gap 6, BUN 30 H, Creatinine 1.08, Estim Creat Clear Calc 69.79, Est GFR (MDRD) Af Amer 83, Est GFR (MDRD) Non-Af 69, BUN/Creatinine Ratio 27.8 H, G lucose 114 H, Calcium 8.1 L Micro: Microbiology 12/14/24 17:15 Urine, Clean Catch Urine Culture - Final Staphylococcus epidermidis Physical Exam Const alert and no apparent distress Constitutional Narrative: Pleasant and appropriate. General Appearance: cooperative Resp normal respiratory effort and clear to auscultation bilaterally Auscultation: diminished lung sounds Cardio regular rate, regular rhythm, no rub and no gallops Cardio Narrative: He has a 2/6 systolic ejection murmur heard best at the second right intercostal space with radiation to the lower left sternal border and the apex. No ectopy appreciated. GI normal to inspection, nondistended, normoactive bowel sounds and soft to palpation GI Narrative: Obese. No guarding with palpation. Extremity no calf tenderness General Extremity: edema Skin Rashes: no rashes Assessment & Plan Assessment/Plan (1) Physical debility: (2) Acute renal failure superimposed on stage 3 chronic kidney disease: QUALIFIERS: Acute renal failure type: unspecified Chronic kidney disease stage 3 subtype: unspecified whether 3a or 3b Qualified Code(s): N17.9 - Acute kidney failure, unspecified; N18.30 - Chronic kidney disease, stage 3 unspecified (3) Acute uremia: (4) Hypokalemia: (5) Normochromic normocytic anemia: (6) Hypophosphatemia: (7) Hypoalbuminemia: (8) Generalized weakness: (9) Recurrent major depression: QUALIFIERS: Active/Remission status: remission status unspecified Qualified Code(s): F33.9 - Major depressive disorder, recurrent, unspecified (10) Hypertension: QUALIFIERS: Hypertension type: primary hypertension Qualified Code(s): I10 - Essential (primary) hypertension (11) Sleep apnea: QUALIFIERS: Sleep apnea type: obstructive Qualified Code(s): G 47.33 - Obstructive sleep apnea (adult) (pediatric) (12) High cholesterol: (13) Diabetes mellitus, type 2: QUALIFIERS: Diabetes mellitus exterminator helper termite insulin use: with exterminator helper termite use Diabetes mellitus complication status: with kidney complications D iabetes mellitus complication detail: with chronic kidney disease Chronic kidney disease stage: stage 3 (moderate) Chronic kidney disease stage 3 subtype: unspecified whether 3a or 3b Qualified Code(s): E11.22 - Type 2 diabetes mellitus with diabetic chronic kidney disease; N18.30 - Chronic kidney disease, stage 3 unspecified; Z79.4 - long-term (current) use of insulin (14) Hx of colon cancer, stage IV: (15) Chronic renal failure, stage 3 (moderate): QUALIFIERS: Chronic kidney disease stage 3 subtype: unspecified whether 3a or 3b Qualified Code(s): N18.30 - Chronic kidney disease, stage 3 unspecified (16) Proteinuria: QUALIFIERS: Proteinuria type: unspecified Qualified Code(s): R 80.9 - Proteinuria, unspecified PLAN: Plan 1. Continue therapy 2. Bumex 4 mg p.o. now. 1500 cc/day fluid restriction 3. Repeat BMP and a HH in a.m. 4. Add Procardia XL 30 mg at 5 PM daily. He lists amlodipine as an allergy but cannot tell me what the reaction is. He lists several medications as allergies and all the allergies are listed as other. Charges/Coding Visit Charges Inpatient E&M: 32557 Subs Hosp L2
[2024-12-19] MEDS: Bumetanide 2 MG Tablet 4 MG PO (12:10)
[2024-12-19] MEDS: Potassium Chloride Oral Tablet 20 MEQ 40 MEQ PO (12:10)
[2024-12-19 12:43] LABS: Bedside Glucose 57 mg/dL (74-106)
[2024-12-19 13:00] LABS: Bedside Glucose 98 mg/dL (74-106)
--- NOTE | 2024-12-19 13:10 | CASEMGMT ---
Addendum entered by Era Guerrero 12/19/24 13:50: Dtr spoke with this worker to confirm preference for [facility] OP therapy, and sister to coordinate van transportation. SW to send referral today and call tomorrow for the appt and update dtr. Dtr scheduled therapy training for 12/20 at 0900 and agreed to bring pt's current walker to determine sizing. SW will continue to follow. Era KISER COACH PROFESSIONAL ATHLETES Original Note: Social Work IDT met with patient and daughter for Team meeting. Discussed patient's progress in PT/OT/ST/SN. Educated to Medicare approval of 13 days with DC 12/26. Pt is CGA, ambulating far distances with walker. Team agreeable pt is safe to return home alone. SW educated to [facility] vs OP therapy. Pt cannot drive and dtr's do not have flexibility to their schedules. Dtr stated (pt's other dtr knows) pt attended [facility] OP therapy and transported by a van prior, but unsure the details. SW offered to coordinate those services, if the dtr can provide those details. Dtr agreed. Dtr is also going to check if pt has carmella FWW at home or this worker needs to order new walker for pt. Dtr is going to schedule therapy training this week to ensure pt can return home alone. SW provided contact information and will continue to follow for DC planning. Era SHI
[2024-12-19 14:10] VITALS: BP 157/47; PULSE 65
--- NOTE | 2024-12-19 16:17 | CHAPLAIN ---
Type of Pastoral Visit _x__ Initial Visit ___ Follow-up Visit ___ On-call Visit ___ General Patient Visit ___ Spiritual Assessment ___ Family Conference ___ Bereavement ___ Rapid Response ___ Code Blue ___ Other (describe below) Pastoral Care Referral From _x__ Patient ___ Family ___ Nurse ___ Physician ___ Roof Assembler ___ Falafel Cart Cook ___ Other (describe below) Sacrament/Intervention _x__ Active listening ___ Anointing ___ Jew _x__ Bereavement ___ Communion _x__ Celeste exploration ___ _x__ Life review _x__ Prayer ___ Reconciliation ___ Sacrament of Sick _x__ Supportive presence ___ Wedding ___ Other (describe below) Pastoral Comments this was a timely visit as the patient had just learned of his sister's this afternoon; pt is emotional about this news and has only one more sister left out of four siblings; pt is given time to speak of his disappointment about being away from family at this time and how he looks to celeste for comfort and hope; pt reviews his recovery period and hopes for discharge in a week; pt is concerned for the health of his as well but they do have a good situation in a [id number] suite; pt talks about his taoism and his celeste; prayer and presence were welcomed and pt expresses thanks for the timely visit
[2024-12-19] MEDS: NIFEdipine 30 MG Tablet PO (17:41)
[2024-12-19 17:57] LABS: Bedside Glucose 98 mg/dL (74-106)
[2024-12-19 18:00] VITALS: BP 154/59; PULSE 65; RESP 17; TEMP 36.4; O2SAT 95
[2024-12-19 22:34] VITALS: BP 129/56; PULSE 72
[2024-12-19] MEDS: Doxazosin 1 MG Tablet 2 MG PO (22:34)
[2024-12-19] MEDS: Insulin Glargine-YFGN 100 UNIT/ML Pen 15 UNIT SC (22:35)
[2024-12-19 23:25] LABS: Bedside Glucose 130 mg/dL (74-106)
[2024-12-20 05:25] VITALS: BP 166/56; PULSE 70; RESP 21; TEMP 36.4; O2SAT 97; BMI 42.7
[2024-12-20 05:27] VITALS: BP 166/56; PULSE 70
[2024-12-20] MEDS: Heparin Injection (Vial) 5,000 UNIT/ML VIAL 5000 UNIT SC ×3 (05:27→23:14)
[2024-12-20] MEDS: hydrALAZINE 50 MG Tablet 100 MG PO ×3 (05:27→23:14)
[2024-12-20 06:03] LABS: Hematocrit 29.8 % (40-54); Hemoglobin 9.8 g/dL (13.0-16.5)
[2024-12-20 06:40] LABS: Anion Gap 7 (5-15); BUN 26 mg/dL (7-18); BUN/Creat Ratio 19.8 RATIO (10-20); Calcium,Total 8.1 mg/dL (8.5-10.1); Chloride 113 mmol/L (98-107); Creatinine, Serum 1.31 mg/dL (0.70-1.30); EST Glomerular Filtration Rate 55 mL/min (>60); Est Glom Filt Rate - Afr Amer 67 mL/min (>60); Estimated Creatinine Clearance 57.65 ml/min; Glucose 112 mg/dL (74-106); Potassium 3.3 mmol/L (3.5-5.1); Sodium Level 144 mmol/L (136-145)
[2024-12-20 07:32] LABS: Bedside Glucose 108 mg/dL (74-106)
[2024-12-20] MEDS: Potassium Chloride Oral Tablet 20 MEQ PO (08:11)
[2024-12-20] MEDS: Isosorbide Mononitrate 30 MG Tablet PO (08:11)
[2024-12-20] MEDS: Bumetanide 2 MG Tablet 4 MG PO (08:11)
[2024-12-20] MEDS: Aspirin E.C. 81 MG Tablet PO (08:11)
[2024-12-20] MEDS: Carvedilol 12.5 MG Tablet PO ×2 (08:11→16:56)
[2024-12-20] MEDS: Allopurinol 100 MG Tablet PO (08:11)
[2024-12-20] MEDS: Sertraline 100 MG Tablet PO (08:11)
[2024-12-20] MEDS: Insulin Lispro 100 UNIT/ML INSULN.PEN SC ×3 (08:12→16:56)
[2024-12-20] MEDS: Gabapentin 600 MG Tablet PO ×2 (08:13→23:20)
--- NOTE | 2024-12-20 08:31 | CASEMGMT ---
Social Work ESTELA scheduled OP PT with [facility] for 12/27. ESTELA phoned dtr, Kayleigh, to update. SW offered DC 12/25, d/t the day of the week. Dtr still works, but will review her schedule and notify this worker if she would like the DC changed. ESTELA also verified pt's contacts and their phone numbers. Updated in registration. Era Guerrero ROTARY DRILLER HELPER DIAL PAINTER
[2024-12-20 12:04] LABS: Bedside Glucose 127 mg/dL (74-106)
--- NOTE | 2024-12-20 14:31 | PCM.PROGNOTE ---
Subjective Subjective Afebrile VSS -blood pressure at bedtime last night was 129/56. He was started on Procardia XL 30 mg daily in the afternoon yesterday. The blood pressure this morning was 166/56. Maintaining appropriate oxygen saturation on RA Oral intake - FOOD good FLUIDS he received 4 mg of p.o. Bumex yesterday. Fluid balance was -860 yesterday and -330 overnight. Weight today is up a little over a pound since yesterday? The blood sugar record was reviewed. Fasting this morning was 108 and his blood sugar at lunch was 127. He at bedtime blood sugar was 130. Mealtime insulin was decreased from 8 units to 5 units with meals yesterday. Discussed with nursing - no problems that need addressed Reviewed the THERAPY notes Medication list reviewed. All lab was personally reviewed. Hemoglobin is 9.8. This is stable. Sodium is 144 and the potassium is 3.3 today, down from 3.4 yesterday evening with extra supplementation. Serum bicarb is normal at 24. The BUN is 26 and the creatinine today is 1.31 which is up from 1.08 yesterday and more accurately reflects what his baseline is been over the past year. Denies lightheadedness, cephalgia, chest pain, shortness of breath, cough, nausea/vomiting/abdominal pain, dysuria and calf tenderness. Objective Data Objective Data Vital Signs: Vital Signs Temp Pulse Resp BP Pulse Ox O2 Del Method O2 Flow Rate 97.6 F L 70 21 H 166/56 H 97 Room Air 2 12/20/24 05:25 12/20/24 05:27 12/20/24 05:25 12/20/24 05:27 12/20/24 05:25 12/20/24 05:25 12/16/24 05:29 Oxygen Flow Rate (L/min) 2 Oxygen Delivery Method Room Air Weight: 306 lb 0.026 oz Body Mass Index (BMI) 42.7 Intake & Output: Intake and Output for Last 24 Hours 12/18/24 12/19/24 12/20/24 23:59 23:59 23:59 Intake Total 2790 / 3610 2530 / 2530 270 / 270 Output Total 1200 / 1400 2720 / 2720 600 / 600 Balance 1590 / 2210 -190 / -190 -330 / -330 Lab / Micro Data 12/28/24 05:12 12/28/24 05:12 Labs: Laboratory Results - last 24 hr 12/19/24 17:35: POC Glucose 98 12/19/24 22:33: POC Glucose 130 H 12/20/24 05:30: Hgb 9.8 L, Hct 29.8 L, Sodium 144, Potassium 3.3 L, Chloride 113 H, Carbon Dioxide 24.0, Anion Gap 7, BUN 26 H, Creatinine 1.31 H, Estim Creat Clear Calc 57.65, Est GFR (MDRD) Af Amer 67, Est GFR (MDRD) Non-Af 55 L, BUN/Creatinine Ratio 19.8, Glucose 112 H, Calcium 8.1 L 12/20/24 07:11: POC Glucose 108 H 12/20/24 11:45: POC Glucose 127 H Micro: Microbiology 12/14/24 17:15 Urine, Clean Catch Urine Culture - Final Staphylococcus epidermidis Physical Exam Const alert, oriented x3 and no apparent distress Constitutional Narrative: Lying in bed resting when I entered the room. Can lie almost flat without SOB. Denies PND. General Appearance: cooperative Eyes Eyes Narrative: No discharge from the eyes. Neck supple Resp clear to auscultation bilaterally Cardio regular rate, regular rhythm, no rub and no gallops GI normal to inspection, nondistended, normoactive bowel sounds, soft to palpation and non-tender GI Narrative: No guarding with palpation. Extremity General Extremity: edema Skin Skin Narrative: No rashes. Assessment & Plan Assessment/Plan (1) Physical debility: (2) Acute renal failure superimposed on stage 3 chronic kidney disease: QUALIFIERS: Acute renal failure type: unspecified Chronic kidney disease stage 3 subtype: unspecified whether 3a or 3b Qualified Code(s): N17.9 - Acute kidney failure, unspecified; N18.30 - Chronic kidney disease, stage 3 unspecified (3) Acute uremia: (4) Hypokalemia: (5) Normochromic normocytic anemia: (6) Hypophosphatemia: (7) Hypoalbuminemia: (8) Generalized weakness: (9) Recurrent major depression: QUALIFIERS: Active/Remission status: remission status unspecified Qualified Code(s): F33.9 - Major depressive disorder, recurrent, unspecified (10) Hypertension: QUALIFIERS: Hypertension type: primary hypertension Qualified Code(s): I10 - Essential (primary) hypertension (11) Sleep apnea: QUALIFIERS: Sleep apnea type: obstructive Qualified Code(s): G47.33 - Obstructive sleep apnea (adult) (pediatric) (12) High cholesterol: (13) Diabetes mellitus, type 2: QUALIFIERS: Diabetes mellitus medical terminologist insulin use: with chcf use Diabetes mellitus complication status: with kidney complications Diabetes mellitus complication detail: with chronic kidney disease Chronic kidney disease stage: stage 3 (moderate) Chronic kidney disease stage 3 subtype: unspecified whether 3a or 3b Qualified Code(s): E11.22 - Type 2 diabetes mellitus with diabetic chronic kidney disease; N18.30 - Chronic kidney disease, stage 3 unspecified; Z79.4 - [facility] (current) use of insulin (14) Chronic renal failure, stage 3 (moderate): QUALIFIERS: Chronic kidney disease stage 3 subtype: unspecified whether 3a or 3b Qualified Code(s): N18.30 - Chronic kidney disease, stage 3 unspecified PLAN: Plan 1. Continue therapy Charges/Coding Visit Charges Inpatient E&M: 19495 Subs Hosp L1
[2024-12-20] MEDS: Potassium Chloride Oral Tablet 20 MEQ 40 MEQ PO (14:54)
[2024-12-20 15:03] VITALS: PULSE 64
[2024-12-20] MEDS: NIFEdipine 30 MG Tablet PO (16:56)
[2024-12-20 17:37] LABS: Bedside Glucose 102 mg/dL (74-106)
[2024-12-20 17:47] VITALS: BP 163/61; PULSE 61; RESP 15; TEMP 36.8; O2SAT 95
[2024-12-20 21:59] LABS: Bedside Glucose 132 mg/dL (74-106)
[2024-12-20 22:00] VITALS: BP 179/55; PULSE 66; RESP 18
[2024-12-20 23:14] VITALS: BP 179/55; PULSE 66
[2024-12-20] MEDS: Doxazosin 1 MG Tablet 2 MG PO (23:20)
[2024-12-20] MEDS: Insulin Glargine-YFGN 100 UNIT/ML Pen 15 UNIT SC (23:20)
[2024-12-21] VITALS (8 sets, daily range): BP systolic 129–177; BP diastolic 44–63; PULSE 60–77; RESP 16–64; TEMP 36.3–36.6; O2SAT 16–98; BMI 42.4
[2024-12-21] MEDS: Heparin Injection (Vial) 5,000 UNIT/ML VIAL 5000 UNIT SC ×3 (06:20→22:17)
[2024-12-21] MEDS: hydrALAZINE 50 MG Tablet 100 MG PO ×3 (06:20→22:16)
[2024-12-21 07:25] LABS: Bedside Glucose 122 mg/dL (74-106)
[2024-12-21] MEDS: Insulin Lispro 100 UNIT/ML INSULN.PEN SC (07:39)
[2024-12-21] MEDS: Allopurinol 100 MG Tablet PO (07:40)
[2024-12-21] MEDS: Potassium Chloride Oral Tablet 20 MEQ PO (07:40)
[2024-12-21] MEDS: Isosorbide Mononitrate 30 MG Tablet PO (07:40)
[2024-12-21] MEDS: Sertraline 100 MG Tablet PO (07:40)
[2024-12-21] MEDS: Bumetanide 2 MG Tablet PO (07:41)
[2024-12-21] MEDS: Aspirin E.C. 81 MG Tablet PO (07:41)
[2024-12-21] MEDS: Carvedilol 12.5 MG Tablet PO ×2 (07:43→16:52)
[2024-12-21] MEDS: Gabapentin 600 MG Tablet PO ×2 (07:47→22:18)
[2024-12-21] MEDS: NIFEdipine 30 MG Tablet PO (16:52)
[2024-12-21 17:11] LABS: Bedside Glucose 125 mg/dL (74-106)
[2024-12-21] MEDS: Insulin Glargine-YFGN 100 UNIT/ML Pen 15 UNIT SC (22:17)
[2024-12-21] MEDS: Doxazosin 1 MG Tablet 2 MG PO (22:17)
[2024-12-22] VITALS (10 sets, daily range): BP systolic 135–163; BP diastolic 47–64; PULSE 59–66; RESP 16–18; TEMP 36.1–37.3; O2SAT 93–95; BMI 42.2
[2024-12-22 05:19] LABS: Anion Gap 9 (5-15); BUN 26 mg/dL (7-18); BUN/Creat Ratio 21.3 RATIO (10-20); Chloride 112 mmol/L (98-107); Creatinine, Serum 1.22 mg/dL (0.70-1.30); EST Glomerular Filtration Rate 60 mL/min (>60); Est Glom Filt Rate - Afr Amer 72 mL/min (>60); Estimated Creatinine Clearance 61.68 ml/min; Glucose 126 mg/dL (74-106); Potassium 3.2 mmol/L (3.5-5.1); Sodium Level 143 mmol/L (136-145)
[2024-12-22] MEDS: hydrALAZINE 50 MG Tablet 100 MG PO ×3 (05:23→21:27)
[2024-12-22] MEDS: Heparin Injection (Vial) 5,000 UNIT/ML VIAL 5000 UNIT SC ×3 (05:23→21:29)
[2024-12-22 07:07] LABS: Bedside Glucose 134 mg/dL (74-106)
[2024-12-22] MEDS: Sertraline 100 MG Tablet PO (08:04)
[2024-12-22] MEDS: Isosorbide Mononitrate 30 MG Tablet PO (08:04)
[2024-12-22] MEDS: Bumetanide 2 MG Tablet PO (08:04)
[2024-12-22] MEDS: Gabapentin 600 MG Tablet PO ×2 (08:04→21:30)
[2024-12-22] MEDS: Aspirin E.C. 81 MG Tablet PO (08:04)
[2024-12-22] MEDS: Potassium Chloride Oral Tablet 20 MEQ PO ×2 (08:04→21:27)
[2024-12-22] MEDS: Allopurinol 100 MG Tablet PO (08:04)
[2024-12-22] MEDS: Carvedilol 12.5 MG Tablet PO ×2 (08:04→17:10)
[2024-12-22] MEDS: Senna/Docusate Sodium 1 Tablet 2 TABLET PO ×2 (08:05→21:31)
--- NOTE | 2024-12-22 11:03 | PCM.PROGNOTE ---
Subjective Subjective Afebrile VSS -blood pressures over the past 24 hours have ranged from 146/55 to 177/58. Heart rate has ranged from 63-77. Maintaining appropriate oxygen saturation on RA Oral intake - FOOD always good FLUIDS good oral fluid intake. Fluid balance yesterday was -920 2:05 milligrams of Bumex. Weight today is 302 pounds and 8 ounces which is down from 306 pounds on 12/20/2024. The blood sugar record was reviewed. Blood sugars are well-controlled with no hypoglycemia. Discussed with nursing - no problems that need addressed Reviewed the THERAPY notes Medication list reviewed. Antihypertensives include carvedilol 12.5 mg twice daily, hydralazine 100 mg 3 times daily, Cardura 2 mg at at bedtime and nifedipine XR 30 mg daily BMP today shows the sodium to be stable at 143. Potassium is low at 3.2 and the serum bicarb is normal at 112. The BUN is 26 with a creatinine of 1.22 which is within his baseline. Calcium corrected for hypoalbuminemia is within normal limits. Golden denies lightheadedness, cephalgia, chest pain, palpitations, shortness of breath at rest, orthopnea, paroxysmal nocturnal dyspnea, He feels as though he is getting stronger. He is c/o pain in his hips. this is every day and it increases with ambulation. He also sometimes has electric shock-like pain in the anterior thighs but, this is rate. Objective Data Objective Data Vital Signs: Vital Signs Temp Pulse Resp BP Pulse Ox O2 Del Method O2 Flow Rate 97.0 F L 63 18 148/57 H 93 Room Air 2 12/22/24 05:00 12/22/24 10:12/22/24 10:12/22/24 10:12/22/24 10:12/22/24 10:12/16/24 05:29 Oxygen Flow Rate (L/min) 2 Oxygen Delivery Method Room Air Weight: 302 lb 7.587 oz Body Mass Index (BMI) 42.2 Intake & Output: Intake and Output for Last 24 Hours 12/20/24 12/21/24 12/22/24 23:59 23:59 23:59 Intake Total 1310 / 1810 1800 / 1800 1140 / 1140 Output Total 1699 2725 / 272 1000 / 1000 Balance -390 / -215 -925 / -925 140 / 140 Lab / Micro Data 12/20/24 05:30 12/22/24 04:42 Labs: Laboratory Results - last 24 hr 12/21/24 16:30: POC Glucose 125 H 12/22/24 04:42: Sodium 143, Potassium 3.2 L, Chloride 112 H, Carbon Dioxide 23.0, Anion Gap 9, BUN 26 H, Creatinine 1.22, Estim Creat Clear Calc 61.68, Est GFR (MDRD) Af Amer 72, Est GFR (MDRD) Non-Af 60, BUN/Creatinine Ratio 21.3 H, Glucose 126 H, Calcium 8.0 L 12/22/24 06:39: POC Glucose 134 H Micro: Microbiology 12/14/24 17:15 Urine, Clean Catch Urine Culture - Final Staphylococcus epidermidis Physical Exam Const alert and oriented x3 Constitutional Narrative: Engaged and making good eye contact. General Appearance: cooperative Resp clear to auscultation bilaterally Resp Narrative: No conversational dyspnea Effort and Inspection: Negative for tachypneic or respiratory distress Cardio regular rate, regular rhythm, no rub and no gallops GI normal to inspection, nondistended, normoactive bowel sounds, soft to palpation and non-tender GI Narrative: No guarding with palpation Extremity Extremity Narrative: Pillo wrap's are in place. No pitting edema of the posterior thighs today. Skin Rashes: no rashes Assessment & Plan Assessment/Plan (1) Physical debility: (2) Acute renal failure superimposed on stage 3 chronic kidney disease: QUALIFIERS: Acute renal failure type: unspecified Chronic kidney disease stage 3 subtype: unspecified whether 3a or 3b Qualified Code(s): N17.9 - Acute kidney failure, unspecified; N18.30 - Chronic kidney disease, stage 3 unspecified (3) Acute uremia: (4) Hypokalemia: (5) Normochromic normocytic anemia: (6) Hypophosphatemia: (7) Hypoalbuminemia: (8) Generalized weakness: (9) Recurrent major depression: QUALIFIERS: Active/Remission status: remission status unspecified Qualified Code(s): F33.9 - Major depressive disorder, recurrent, unspecified (10) Hypertension: QUALIFIERS: Hypertension type: primary hypertension Qualified Code(s): I10 - Essential (primary) hypertension (11) Sleep apnea: QUALIFIERS: Sleep apnea type: obstructive Qualified Code(s): G47.33 - Obstructive sleep apnea (adult) (pediatric) (12) High cholesterol: (13) Diabetes mellitus, type 2: QUALIFIERS: Diabetes mellitus long term care social worker insulin use: with long term care social worker use Diabetes mellitus complication status: with kidney complications Diabetes mellitus complication detail: with chronic kidney disease Chronic kidney disease stage: stage 3 (moderate) Chronic kidney disease stage 3 subtype: unspecified whether 3a or 3b Qualified Code(s): E11.22 - Type 2 diabetes mellitus with diabetic chronic kidney disease; N18.30 - Chronic kidney disease, stage 3 unspecified; Z79.4 - remote computer terminal operator (current) use of insulin (14) Chronic renal failure, stage 3 (moderate): QUALIFIERS: Chronic kidney disease stage 3 subtype: unspecified whether 3a or 3b Qualified Code(s): N18.30 - Chronic kidney disease, stage 3 unspecified PLAN: Plan 1. Continue therapy 2. Bumex 1 mg p.o. daily 3. Increase the potassium chloride to 20 mEq twice daily and given extra 40 mEq now. 4. Increase Procardia XL to 60 mg daily at suppertime. 5. Recheck a BMP on Thursday Charges/Coding Visit Charges Inpatient E&M: 29490 Subs Hosp L1
[2024-12-22] MEDS: Potassium Chloride Oral Tablet 20 MEQ 40 MEQ PO (13:00)
[2024-12-22] MEDS: traMADol 50 MG Tablet PO (13:42)
[2024-12-22 13:58] LABS: Bedside Glucose 170 mg/dL (74-106)
[2024-12-22 16:21] LABS: Bedside Glucose 131 mg/dL (74-106)
[2024-12-22] MEDS: NIFEdipine 60 MG Tablet PO (17:10)
[2024-12-22] MEDS: Insulin Glargine-YFGN 100 UNIT/ML Pen 15 UNIT SC (21:29)
[2024-12-22] MEDS: Doxazosin 1 MG Tablet 2 MG PO (21:29)
[2024-12-23] VITALS (7 sets, daily range): BP systolic 136–165; BP diastolic 51–61; PULSE 59–64; RESP 16; TEMP 36.7–36.8; O2SAT 93–98; BMI 42.0
[2024-12-23] MEDS: hydrALAZINE 50 MG Tablet 100 MG PO ×3 (05:56→23:22)
[2024-12-23] MEDS: Heparin Injection (Vial) 5,000 UNIT/ML VIAL 5000 UNIT SC ×3 (05:59→23:25)
--- NOTE | 2024-12-23 07:06 | MDS.RN ---
Around 0315, this nurse ambulated patient to the restroom. When patient was lowering himself to sit down on the toilet, he leaned back and hit his back on the back of the toilet. Upon initial assessment, there was a small shear to his back, the size of a dime. No further injuries observed. Rosa AMANDA, transferred patient back into bed. No further assistance needed, call light in reach.
[2024-12-23 07:36] LABS: Bedside Glucose 122 mg/dL (74-106)
--- NOTE | 2024-12-23 07:40 | NURSING ---
Called Daughter, Dominique, to notify her of patient's minor injuries that occurred this morning (refer to nursing notes). Daughter did not answer, left voicemail to call back at her connivence to update her.
--- NOTE | 2024-12-23 07:46 | NURSING ---
0500 pt was in the shower when staff noted a long abrasion to the lt side of back and buttock. pt denied discomfort and stated that he lost his balance when getting up from the toilet. pt had gone back and made contact with the sprayer on the toilet . rn made aware and appropriate paper work was completed and people notified
[2024-12-23] MEDS: Carvedilol 12.5 MG Tablet PO ×2 (08:27→17:07)
[2024-12-23] MEDS: Allopurinol 100 MG Tablet PO (08:27)
[2024-12-23] MEDS: Potassium Chloride Oral Tablet 20 MEQ PO ×2 (08:27→23:24)
[2024-12-23] MEDS: Sertraline 100 MG Tablet PO (08:28)
[2024-12-23] MEDS: Isosorbide Mononitrate 30 MG Tablet PO (08:28)
[2024-12-23] MEDS: Aspirin E.C. 81 MG Tablet PO (08:28)
[2024-12-23] MEDS: Gabapentin 600 MG Tablet PO ×2 (08:28→23:24)
[2024-12-23] MEDS: Senna/Docusate Sodium 1 Tablet 2 TABLET PO ×2 (08:28→23:24)
[2024-12-23] MEDS: Bumetanide 0.5 MG Tablet 1 MG PO (08:28)
[2024-12-23] MEDS: traMADol 50 MG Tablet PO (14:36)
--- NOTE | 2024-12-23 15:06 | NURSING ---
New order received from Dr. Jacobson 1) Tramadol 50mg po BID. Patient aware of new order.
--- NOTE | 2024-12-23 15:51 | NURSING ---
Daughter returned call, was made of aware of pt scratching back on back of toilet this am. No other questions from daughter.
[2024-12-23] MEDS: NIFEdipine 60 MG Tablet PO (17:07)
[2024-12-23 17:43] LABS: Bedside Glucose 122 mg/dL (74-106)
[2024-12-23 21:54] LABS: Bedside Glucose 144 mg/dL (74-106)
[2024-12-23] MEDS: Doxazosin 1 MG Tablet 2 MG PO (23:22)
[2024-12-23] MEDS: Insulin Glargine-YFGN 100 UNIT/ML Pen 15 UNIT SC (23:23)
[2024-12-24 05:16] VITALS: BP 144/54; PULSE 69
[2024-12-24] MEDS: hydrALAZINE 50 MG Tablet 100 MG PO ×3 (05:16→21:22)
[2024-12-24] MEDS: Heparin Injection (Vial) 5,000 UNIT/ML VIAL 5000 UNIT SC ×3 (05:18→21:21)
[2024-12-24 06:00] VITALS: BP 144/54; PULSE 69; RESP 17; TEMP 36.7; O2SAT 95; BMI 42.2
[2024-12-24 06:46] LABS: Bedside Glucose 135 mg/dL (74-106)
[2024-12-24] MEDS: Senna/Docusate Sodium 1 Tablet 2 TABLET PO ×2 (08:10→21:22)
[2024-12-24] MEDS: Carvedilol 12.5 MG Tablet PO ×2 (08:10→16:34)
[2024-12-24] MEDS: Allopurinol 100 MG Tablet PO (08:10)
[2024-12-24] MEDS: Isosorbide Mononitrate 30 MG Tablet PO (08:10)
[2024-12-24] MEDS: Aspirin E.C. 81 MG Tablet PO (08:10)
[2024-12-24] MEDS: Potassium Chloride Oral Tablet 20 MEQ PO ×2 (08:10→21:22)
[2024-12-24] MEDS: Bumetanide 0.5 MG Tablet 1 MG PO (08:10)
[2024-12-24] MEDS: Sertraline 100 MG Tablet PO (08:10)
[2024-12-24] MEDS: traMADol 50 MG Tablet PO ×2 (08:10→16:34)
[2024-12-24 09:52] VITALS: BP 129/51; PULSE 59
[2024-12-24] MEDS: Gabapentin 600 MG Tablet PO ×2 (10:54→21:37)
[2024-12-24 13:36] VITALS: BP 142/38; PULSE 63
[2024-12-24] MEDS: NIFEdipine 60 MG Tablet PO (16:34)
[2024-12-24 17:23] LABS: Bedside Glucose 180 mg/dL (74-106)
[2024-12-24 18:00] VITALS: BP 151/50; PULSE 77; RESP 18; TEMP 36.2; O2SAT 93
[2024-12-24] MEDS: Doxazosin 1 MG Tablet 2 MG PO (21:21)
[2024-12-24 21:22] VITALS: BP 163/60; PULSE 68
[2024-12-24] MEDS: Insulin Glargine-YFGN 100 UNIT/ML Pen 15 UNIT SC (21:37)
[2024-12-25 00:45] LABS: Bedside Glucose 169 mg/dL (74-106)
[2024-12-25 06:00] VITALS: BP 136/49; PULSE 67; RESP 17; TEMP 37.1; O2SAT 91; BMI 42.0
[2024-12-25 06:37] VITALS: BP 136/49; PULSE 67
[2024-12-25] MEDS: hydrALAZINE 50 MG Tablet 100 MG PO ×3 (06:37→20:27)
[2024-12-25] MEDS: Heparin Injection (Vial) 5,000 UNIT/ML VIAL 5000 UNIT SC ×3 (06:38→20:28)
[2024-12-25 07:26] LABS: Bedside Glucose 169 mg/dL (74-106)
[2024-12-25] MEDS: Aspirin E.C. 81 MG Tablet PO (09:36)
[2024-12-25] MEDS: Sertraline 100 MG Tablet PO (09:36)
[2024-12-25] MEDS: Potassium Chloride Oral Tablet 20 MEQ PO ×2 (09:36→20:31)
[2024-12-25] MEDS: Isosorbide Mononitrate 30 MG Tablet PO (09:36)
[2024-12-25] MEDS: Carvedilol 12.5 MG Tablet PO ×2 (09:36→16:39)
[2024-12-25] MEDS: traMADol 50 MG Tablet PO ×2 (09:36→16:39)
[2024-12-25] MEDS: Gabapentin 600 MG Tablet PO ×2 (09:36→20:31)
[2024-12-25] MEDS: Bumetanide 0.5 MG Tablet 1 MG PO (09:37)
[2024-12-25] MEDS: Allopurinol 100 MG Tablet PO (09:37)
[2024-12-25 14:58] VITALS: PULSE 68
[2024-12-25] MEDS: NIFEdipine 60 MG Tablet PO (16:39)
[2024-12-25 17:02] LABS: Bedside Glucose 159 mg/dL (74-106)
[2024-12-25 18:00] VITALS: BP 162/60; PULSE 75; RESP 16; TEMP 37.2; O2SAT 95
[2024-12-25 20:27] VITALS: BP 163/63; PULSE 71
[2024-12-25] MEDS: Doxazosin 1 MG Tablet 2 MG PO (20:27)
[2024-12-25] MEDS: Insulin Glargine-YFGN 100 UNIT/ML Pen 15 UNIT SC (20:29)
[2024-12-25 22:54] LABS: Bedside Glucose 164 mg/dL (74-106)
[2024-12-26] VITALS (9 sets, daily range): BP systolic 127–160; BP diastolic 50–57; PULSE 63–68; RESP 16; TEMP 36.6–36.8; O2SAT 94–98; BMI 43.1
[2024-12-26 05:46] LABS: Hematocrit 27.9 % (40-54); Hemoglobin 9.1 g/dL (13.0-16.5); Mean Corp Hgb Conc 32.6 g/dL (32-36); Mean Corpuscular Hgb 29.8 pg (27.0-32.0); Mean Corpuscular Volume 91.5 fL (80-94); Mean Platelet Vol. 10.9 fl (6.2-12.0); Platelet Count 191 K/mm3 (150-450); RBC Distribution Width CV 14.7 % (11.6-14.6); RBC Distribution Width SD 48.9 fl (35.1-43.9); Red Blood Count 3.05 M/mm3 (4.6-6.2); White Blood Count 4.8 K/mm3 (4.4-11.0)
[2024-12-26 06:43] LABS: Bedside Glucose 110 mg/dL (74-106)
[2024-12-26 06:48] LABS: Albumin, Serum 1.8 g/dL (3.2-5.0); Anion Gap 7 (5-15); BUN 21 mg/dL (7-18); Calcium,Total 7.9 mg/dL (8.5-10.1); Chloride 120 mmol/L (98-107); Creatinine, Serum 1.05 mg/dL (0.70-1.30); EST Glomerular Filtration Rate 71 mL/min (>60); Est Glom Filt Rate - Afr Amer 86 mL/min (>60); Estimated Creatinine Clearance 72.33 ml/min; Glucose 124 mg/dL (74-106); Magnesium 1.5 mg/dL (1.6-2.6); Phosphorus 2.9 mg/dL (2.5-4.9); Potassium 3.3 mmol/L (3.5-5.1); Sodium Level 151 mmol/L (136-145)
[2024-12-26] MEDS: hydrALAZINE 50 MG Tablet 100 MG PO ×3 (06:56→21:29)
[2024-12-26] MEDS: Heparin Injection (Vial) 5,000 UNIT/ML VIAL 5000 UNIT SC ×3 (06:58→21:29)
[2024-12-26] MEDS: Potassium Chloride Oral Tablet 20 MEQ PO (07:57)
[2024-12-26] MEDS: Carvedilol 12.5 MG Tablet PO ×2 (07:57→16:30)
[2024-12-26] MEDS: traMADol 50 MG Tablet PO ×2 (07:58→15:00)
[2024-12-26] MEDS: Bumetanide 0.5 MG Tablet 1 MG PO (07:58)
[2024-12-26] MEDS: Aspirin E.C. 81 MG Tablet PO (07:58)
[2024-12-26] MEDS: Gabapentin 600 MG Tablet PO ×2 (07:58→21:32)
[2024-12-26] MEDS: Allopurinol 100 MG Tablet PO (07:58)
[2024-12-26] MEDS: Sertraline 100 MG Tablet PO (07:58)
[2024-12-26] MEDS: Isosorbide Mononitrate 30 MG Tablet PO (07:58)
--- NOTE | 2024-12-26 08:35 | PCM.PROGNOTE ---
Subjective Subjective Afebrile VSS - Maintaining appropriate oxygen saturation on RA Oral intake - FOOD good FLUIDS good Weight today is 309 pounds and1 oz. This is up from 301 pounds and 2.4 ounces on 12/23/2024. Discussed with nursing - legs are more swollen and today with increasing redness to the legs, L>R Reviewed the THERAPY notes Medication list reviewed. All lab drawn this AM was personally reviewed. White blood cell count is normal. The hemoglobin is 9.1 which is down from 10.2 on 12/14/2024. He had a Hemoccult stool done on October 04, 2024 and it was positive. Sodium is 151 today and the potassium is 3.3. The BUN is 21 with a creatinine of 1.05. Magnesium is low at 1.5. Albumin is low at 1.8. Denies chest pain, shortness of breath, palpitations, nausea/vomiting/abdominal pain, leg pain and dysuria. Objective Data Objective Data Vital Signs: Vital Signs Temp Pulse Resp BP Pulse Ox O2 Del Method O2 Flow Rate 97.8 F 67 16 141/57 H 94 Room Air 2 12/26/24 06:00 12/26/24 06:56 12/26/24 06:00 12/26/24 06:56 12/26/24 06:00 12/26/24 06:00 12/16/24 05:29 Oxygen Flow Rate (L/min) 2 Oxygen Delivery Method Room Air Weight: 309 lb 1.409 oz Body Mass Index (BMI) 43.1 Intake & Output: Intake and Output for Last 24 Hours 12/24/24 12/25/24 12/26/24 23:59 23:59 23:59 Intake Total 1620 / 1620 845 / 1045 320 / 320 Output Total 1700 / 1700 900 / 900 300 / 300 Balance -80 / -80 -55 / 145 20 / 20 Lab / Micro Data 12/26/24 05:30 12/26/24 05:30 Labs: Laboratory Results - last 24 hr 12/25/24 16:22: POC Glucose 159 H 12/25/24 20:26: POC Glucose 164 H 12/26/24 05:30: WBC 4.8, RBC 3.05 L, Hgb 9.1 L, Hct 27.9 L, MCV 91.5, MCH 29.8, MCHC 32.6, RDW Std Deviation 48.9 H, RDW Coeff of Jose 14.7 H, Plt Count 191, MPV 10.9, Sodium 151 H, Potassium 3.3 L, Chloride 120 H, Carbon Dioxide 24.0, Anion Gap 7, BUN 21 H, Creatinine 1.05, Estim Creat Clear Calc 72.33, Est GFR (MDRD) Af Amer 86, Est GFR (MDRD) Non-Af 71, BUN/Creatinine Ratio 20.0, Glucose 124 H, Calcium 7.9 L, Phosphorus 2.9, Magnesium 1.5 L, Albumin 1.8 L 12/26/24 06:19: POC Glucose 110 H Micro: Microbiology 12/14/24 17:15 Urine, Clean Catch Urine Culture - Final Staphylococcus epidermidis Physical Exam Const alert and no apparent distress General Appearance: cooperative Orientation / Consciousness: Negative for confused Resp Resp Narrative: Diminished throughout. No wheezes or Crackles present. Effort and Inspection: Negative for tachypneic, respiratory distress or labored Cardio regular rate and regular rhythm Cardio Narrative: Heart sounds are distant. No gallop appreciated. GI normal to inspection, nondistended, normoactive bowel sounds and soft to palpation GI Narrative: obese, no guarding with palpation. Extremity Extremity Narrative: Now with pitting edema into the posterior thighs. He was sitting in the chair with his legs dependent when I entered the room. The left leg has circumferential redness around the distal LE and there is increased warmth to touch. No openings in the skin. The skin is very dry and scaley. The foot is spared. There is mild edema of the RLE over the mid bravo area. No increased warmth to touch. No blisters. No openings in the skin. Skin Rashes: no rashes Assessment & Plan Assessment/Plan (1) Physical debility: (2) Acute renal failure superimposed on stage 3 chronic kidney disease: QUALIFIERS: Acute renal failure type: unspecified Chronic kidney disease stage 3 subtype: unspecified whether 3a or 3b Qualified Code(s): N17.9 - Acute kidney failure, unspecified; N18.30 - Chronic kidney disease, stage 3 unspecified (3) Acute uremia: (4) Hypokalemia: (5) Normochromic normocytic anemia: (6) Hypophosphatemia: (7) Hypoalbuminemia: (8) Generalized weakness: (9) Recurrent major depression: QUALIFIERS: Active/Remission status: remission status unspecified Qualified Code(s): F33.9 - Major depressive disorder, recurrent, unspecified (10) Hypertension: QUALIFIERS: Hypertension type: primary hypertension Qualified Code(s): I10 - Essential (primary) hypertension (11) Sleep apnea: QUALIFIERS: Sleep apnea type: obstructive Qualified Code(s): G47.33 - Obstructive sleep apnea (adult) (pediatric) (12) High cholesterol: (13) Diabetes mellitus, type 2: QUALIFIERS: Diabetes mellitus intermediate project manager insulin use: with intermediate project manager use Diabetes mellitus complication status: with kidney complications Diabetes mellitus complication detail: with chronic kidney disease Chronic kidney disease stage: stage 3 (moderate) Chronic kidney disease stage 3 subtype: unspecified whether 3a or 3b Qualified Code(s): E11.22 - Type 2 diabetes mellitus with diabetic chronic kidney disease; N18.30 - Chronic kidney disease, stage 3 unspecified; Z79.4 - parts counterman (current) use of insulin (14) Chronic renal failure, stage 3 (moderate): QUALIFIERS: Chronic kidney disease stage 3 subtype: unspecified whether 3a or 3b Qualified Code(s): N18.30 - Chronic kidney disease, stage 3 unspecified (15) Hypernatremia: (16) Hypomagnesemia: (17) Cellulitis and abscess of left leg: PLAN: Plan 1. hold DC for today 2. Decrease the Procardia XL to 30 mg daily 3. IV Albumin this AM, 50 GM. 30 minutes after the first bag of Albumin has infused sive Lasix 60 mg then infuse the second 25 mg and give Lasix 60 mg at 1600. 4. Start Aldactone 25 mg daily 5. Increase the potassium supplement 6. Start a magnesium supplement 7. BMP later today. 8. Hemoccult stool 9. BMP and H&H in a.m. 10. Start Keflex 500 mg every 8 hours for suspected early cellulitis left lower extremity I suspect the hypernatremia is due to IV volume depletion. He is hypoalbuminemic and third spacing. Lists ARB's as drug allergy but, tells me that the reaction is nausea. He is a poor historian and I do not trust this information. Potassium is always low and the mag is low also. He has CRF stage III and is mornidly obese. He has sleep apnea and I suspect he likely has significant pulmonnary HTN. Has never had an ECHO at this facility. I spoke with his dtr Dominique on the phone and explained why we want to keep him again on rehab. I answeredd her questions and she is OK with Golden not being discharged today. Charges/Coding Visit Charges Inpatient E&M: 61759 Subs Hosp L2
--- NOTE | 2024-12-26 09:20 | CASEMGMT ---
Social Work Dr is keeping pt overnight to ensure medical needs are stable before discharge. SW left VM with dtrKayleigh, to update and coordinate OP therapy schedule. Era Guerrero EMPLOYMENT AGENCY MANAGER [employer]
[2024-12-26] MEDS: Potassium Chloride Oral Tablet 20 MEQ 40 MEQ PO ×3 (10:32→19:09)
[2024-12-26] MEDS: Cephalexin 500 MG Capsule PO ×3 (10:32→21:31)
[2024-12-26] MEDS: Albumin Human 25% (100 mL) 25 GM/100 ML BAG IV ×2 (10:32→12:49)
[2024-12-26] MEDS: Magnesium Chloride 64 MG Delay Rel.Tablet 128 MG PO ×2 (10:32→21:31)
[2024-12-26] MEDS: NIFEdipine 30 MG Tablet PO (10:33)
[2024-12-26] MEDS: Spironolactone 25 MG Tablet PO (10:36)
[2024-12-26 11:23] LABS: Bedside Glucose 134 mg/dL (74-106)
[2024-12-26] MEDS: 0.9% Saline Lock 10 ML Syringe IV (12:13)
[2024-12-26] MEDS: Furosemide 100 MG/10 ML Vial 60 MG IV (12:43)
[2024-12-26 16:28] LABS: Bedside Glucose 148 mg/dL (74-106)
[2024-12-26] MEDS: Furosemide 100 MG/10 ML Vial 80 MG IV (16:30)
[2024-12-26 17:58] LABS: Anion Gap 5 (5-15); BUN 20 mg/dL (7-18); BUN/Creat Ratio 15.9 RATIO (10-20); Calcium,Total 8.4 mg/dL (8.5-10.1); Chloride 115 mmol/L (98-107); Creatinine, Serum 1.26 mg/dL (0.70-1.30); EST Glomerular Filtration Rate 58 mL/min (>60); Est Glom Filt Rate - Afr Amer 70 mL/min (>60); Estimated Creatinine Clearance 60.27 ml/min; Glucose 145 mg/dL (74-106); Potassium 3.1 mmol/L (3.5-5.1); Sodium Level 148 mmol/L (136-145)
[2024-12-26] MEDS: Doxazosin 1 MG Tablet 2 MG PO (21:29)
[2024-12-26] MEDS: Insulin Glargine-YFGN 100 UNIT/ML Pen 15 UNIT SC (21:30)
[2024-12-26] MEDS: Senna/Docusate Sodium 1 Tablet 2 TABLET PO (21:32)
[2024-12-26 23:02] LABS: Bedside Glucose 142 mg/dL (74-106)
[2024-12-27] VITALS (9 sets, daily range): BP systolic 129–147; BP diastolic 41–63; PULSE 59–64; RESP 16; TEMP 36.8–36.9; O2SAT 94–96; BMI 41.7
[2024-12-27] MEDS: Heparin Injection (Vial) 5,000 UNIT/ML VIAL 5000 UNIT SC ×3 (04:59→21:40)
[2024-12-27 06:24] LABS: Hematocrit 27.8 % (40-54); Hemoglobin 8.9 g/dL (13.0-16.5); Mean Corpuscular Hgb 29.8 pg (27.0-32.0); Mean Platelet Vol. 10.8 fl (6.2-12.0); Platelet Count 161 K/mm3 (150-450); RBC Distribution Width SD 50.6 fl (35.1-43.9); Red Blood Count 2.99 M/mm3 (4.6-6.2); White Blood Count 4.1 K/mm3 (4.4-11.0)
[2024-12-27] MEDS: hydrALAZINE 50 MG Tablet 100 MG PO ×3 (06:37→21:40)
[2024-12-27] MEDS: Cephalexin 500 MG Capsule PO ×3 (06:39→21:39)
[2024-12-27 07:19] LABS: Bedside Glucose 109 mg/dL (74-106)
[2024-12-27] MEDS: Spironolactone 25 MG Tablet PO ×3 (07:48→21:40)
[2024-12-27] MEDS: Aspirin E.C. 81 MG Tablet PO (07:48)
[2024-12-27] MEDS: Allopurinol 100 MG Tablet PO (07:48)
[2024-12-27] MEDS: Potassium Chloride Oral Tablet 20 MEQ 40 MEQ PO ×4 (07:49→16:22)
[2024-12-27] MEDS: Sertraline 100 MG Tablet PO (07:49)
[2024-12-27] MEDS: Magnesium Chloride 64 MG Delay Rel.Tablet 128 MG PO ×2 (07:49→21:39)
[2024-12-27] MEDS: Isosorbide Mononitrate 30 MG Tablet PO (07:49)
[2024-12-27] MEDS: traMADol 50 MG Tablet PO ×2 (07:53→15:12)
[2024-12-27] MEDS: Gabapentin 600 MG Tablet PO ×2 (07:57→21:38)
[2024-12-27] MEDS: NIFEdipine 30 MG Tablet PO (07:57)
[2024-12-27] MEDS: Carvedilol 12.5 MG Tablet PO ×2 (08:42→16:22)
[2024-12-27 09:01] LABS: Anion Gap 4 (5-15); BUN 18 mg/dL (7-18); BUN/Creat Ratio 14.4 RATIO (10-20); Calcium,Total 8.2 mg/dL (8.5-10.1); Chloride 116 mmol/L (98-107); Creatinine, Serum 1.25 mg/dL (0.70-1.30); EST Glomerular Filtration Rate 58 mL/min (>60); Est Glom Filt Rate - Afr Amer 70 mL/min (>60); Estimated Creatinine Clearance 59.66 ml/min; Glucose 152 mg/dL (74-106); Sodium Level 148 mmol/L (136-145)
--- NOTE | 2024-12-27 09:11 | NURSING ---
DR DOMINGUEZ AWARE OF LABS.
--- NOTE | 2024-12-27 09:15 | PCM.PROGNOTE ---
Subjective Subjective Afebrile VSS - Maintaining appropriate oxygen saturation on RA Oral intake - FOOD good FLUIDS fluid balance yesterday was -1250 and overnight he was -290. Has been compliant with the fluid restriction. Discussed with nursing - no problems that need addressed Reviewed the THERAPY notes Medication list reviewed. Hemoccult stool was negative. Denies SOB and pain in the legs. No lightheadedness and no palpitations. All lab from this morning was personally reviewed. White blood cell count today is 4.1, down from 4.8 yesterday. Hemoglobin is 8.9 which is down from 9.1 yesterday but this may be related to the ALB infusion and the increase in IVF as opposed to third spaced fluids. Platelets are within normal limits. Sodium is 148 and the potassium today is 3.0 despite multiple doses of KCl yesterday. The BUN actually came down to 18 from 20 yesterday and the creatinine is stable at 1.25. Home medications at admission to [facility] included Bumex 2 mg once daily carvedilol 12.5 mg twice daily, hydralazine 100 mg 3 times daily, isosorbide mononitrate 30 mg daily, lisinopril 40 mg twice daily, potassium chloride 20 mEq daily and spironolactone 100 mg twice daily. Objective Data Objective Data Vital Signs: Vital Signs Temp Pulse Resp BP Pulse Ox O2 Del Method O2 Flow Rate 98.2 F 63 16 142/52 H 94 Room Air 2 12/27/24 06:00 12/27/24 06:37 12/27/24 06:00 12/27/24 06:00 12/27/24 06:00 12/27/24 06:00 12/16/24 05:29 Oxygen Flow Rate (L/min) 2 Oxygen Delivery Method Room Air Weight: 299 lb 1 oz Body Mass Index (BMI) 41.7 Intake & Output: Intake and Output for Last 24 Hours 12/25/24 12/26/24 12/27/24 23:59 23:59 23:59 Intake Total 845 / 1045 1500 / 1500 300 / 300 Output Total 900 / 900 2750 / 2750 590 / 590 Balance -55 / 145 -1250 / -1250 -290 / -290 Lab / Micro Data 12/27/24 05:45 12/27/24 08:33 Labs: Laboratory Results - last 24 hr 12/26/24 11:05: POC Glucose 134 H 12/26/24 16:08: POC Glucose 148 H 12/26/24 17:33: Sodium 148 H, Potassium 3.1 L, Chloride 115 H, Carbon Dioxide 28.0, Anion Gap 5, BUN 20 H, Creatinine 1.26, Estim Creat Clear Calc 60.27, Est GFR (MDRD) Af Amer 70, Est GFR (MDRD) Non-Af 58 L, BUN/Creatinine Ratio 15.9, Glucose 145 H, Calcium 8.4 L 12/26/24 21:26: POC Glucose 142 H 12/27/24 05:45: WBC 4.1 L, RBC 2.99 L, Hgb 8.9 L, Hct 27.8 L, MCV 93.0, MCH 29.8, MCHC 32.0, RDW Std Deviation 50.6 H, RDW Coeff of Jose 15.0 H, Plt Count 161, MPV 10.8 12/27/24 06:43: POC Glucose 109 H 12/27/24 08:33: Sodium 148 H, Potassium 3.0 L, Chloride 116 H, Carbon Dioxide 28.0, Anion Gap 4 L, BUN 18, Creatinine 1.25, Estim Creat Clear Calc 59.66, Est GFR (MDRD) Af Amer 70, Est GFR (MDRD) Non-Af 58 L, BUN/Creatinine Ratio 14.4, Glucose 152 H, Calcium 8.2 L Micro: Microbiology 12/26/24 13:45 Stool Stool Occult Blood (ROXANNE) - Final 12/14/24 17:15 Urine, Clean Catch Urine Culture - Final Staphylococcus epidermidis Physical Exam Const no apparent distress General Appearance: cooperative Resp clear to auscultation bilaterally Auscultation: diminished lung sounds Cardio regular rate, regular rhythm, no rub and no gallops Cardio Narrative: Distant heart sounds. GI normal to inspection, nondistended, normoactive bowel sounds, soft to palpation and non-tender Extremity Extremity Narrative: Much less edema on his legs today. There is still some posterior thigh swelling but much less than yesterday. The erythema in the distal lower extremities is improving. No openings in the skin. No purulent discharge, no seeping. Skin is dry. Skin Rashes: no rashes Assessment & Plan Assessment/Plan (1) Physical debility: (2) Acute renal failure superimposed on stage 3 chronic kidney disease: QUALIFIERS: Acute renal failure type: unspecified Chronic kidney disease stage 3 subtype: unspecified whether 3a or 3b Qualified Code(s): N17.9 - Acute kidney failure, unspecified; N18.30 - Chronic kidney disease, stage 3 unspecified (3) Acute uremia: (4) Hypokalemia: (5) Normochromic normocytic anemia: (6) Hypophosphatemia: (7) Hypoalbuminemia: (8) Generalized weakness: (9) Recurrent major depression: QUALIFIERS: Active/Remission status: remission status unspecified Qualified Code(s): F33.9 - Major depressive disorder, recurrent, unspecified (10) Hypertension: QUALIFIERS: Hypertension type: primary hypertension Qualified Code(s): I10 - Essential (primary) hypertension (11) Sleep apnea: QUALIFIERS: Sleep apnea type: obstructive Qualified Code(s): G47.33 - Obstructive sleep apnea (adult) (pediatric) (12) High cholesterol: (13) Diabetes mellitus, type 2: QUALIFIERS: Diabetes mellitus group home insulin use: with assistant terminal manager use Diabetes mellitus complication status: with kidney complications Diabetes mellitus complication detail: with chronic kidney disease Chronic kidney disease stage: stage 3 (moderate) Chronic kidney disease stage 3 subtype: unspecified whether 3a or 3b Qualified Code(s): E11.22 - Type 2 diabetes mellitus with diabetic chronic kidney disease; N18.30 - Chronic kidney disease, stage 3 unspecified; Z79.4 - correction (current) use of insulin (14) Chronic renal failure, stage 3 (moderate): QUALIFIERS: Chronic kidney disease stage 3 subtype: unspecified whether 3a or 3b Qualified Code(s): N18.30 - Chronic kidney disease, stage 3 unspecified (15) Hypernatremia: (16) Hypomagnesemia: (17) Cellulitis and abscess of left leg: PLAN: Plan 1. Continue therapy 2. KCL 40 MEQ 3 times today. After 80 MEQ's of KCL has been given will give 80 mg of Lasix IV. Continue I&O. Continue Aldactone, started yesterday but, increase to 25 mg BID. 3. He has compression stockings at home but, he is not able to get them on. Will have him follow up at the wound care center for venous insufficiency/chronic edema. 4. Will DC on a diuretic ......previously on Bumex 2 mg daily + KCL 20 MEQ daily 5. Add Lisinopril 20 mg BID.......May be able to DC the Procardia.......which is likely contributing to LE edema. 6. Continue Keflex 7. Recheck lab in the a.m. -will likely be able to discharge tomorrow. Charges/Coding Visit Charges Inpatient E&M: 51363 Subs Hosp L1
--- NOTE | 2024-12-27 10:18 | CASEMGMT ---
Social Work electing to keep pt another day d/t medical issues. DC planned for 12/28. SW phoned dtr, Kayleigh, to update. Answered questions to this worker's scope. Transferred phone call to nursing for dtr to get remaining questions answered. Era Guerrero HOSPICE MASSAGE THERAPIST CRANE SERVICE TECHNICIAN
[2024-12-27] MEDS: Lisinopril 20 MG Tablet PO ×2 (10:47→21:39)
[2024-12-27] MEDS: 0.9% Saline Lock 10 ML Syringe IV (14:10)
[2024-12-27] MEDS: Furosemide 100 MG/10 ML Vial 80 MG IV (14:10)
--- NOTE | 2024-12-27 14:31 | DCINST_ITS ---
Discharge Instructions Diet Discharge Diet: - (Low salt diet and carbohydrate limited diet. Do not drink more than 1500 cc of fluid daily. This is 30 ounces. Sticking to this limit will help to control the swelling in your legs. Measure out all your liquids so you will be able to stick to 1500 cc's a day.) DC O2, CPAP, BIPAP needs Home O2 Discharge instructions: No Dressing / Incision Discharge Activity: May Shower and Use Walker Weight Bearing Status: Full weight bearing Keep extremity elevated above heart level: Legs (Lay down in bed twice a day for 30-60 minutes to elevate the legs. This will help to limit the swelling in your legs. ) Dressing / Incision Call your doctor if you observe: Fever of 101 or Higher, Inability to urinate, Shortness of breath, Dizziness, Fainting spells, Swelling in the ankles, Chest pain and - (Weigh yourself every morning after urinating. IF your weight increases by 5 lbs or more in 1 week this means you are retaining fluid and you need to cut back on salt and call Dr. Mendoza for instructions on what to do with the diuretic (Bumex). ) Additional Dressing/Incision Instructions:: You should moisturize your legs every night with Eucerin Intensive repair....they sell this at [facility]. when the skin gets dry and flakey it allows bacteria to get under the skin and cause an infection. Follow Up Care Please Follow Up With: Vesta Lewis DO Test Results: Test results from this visit will be discussed in further detail at your follow- up appointment, if applicable. Pending Tests Upon Discharge: none Discharge Plan Admission Admit Date/Time: 12/13/24 18:59 Primary Reason for Your Visit: Debility due to renal failure. Attending Provider: Kierra Jacobson Primary Care Provider: Vesta Lewis Instructions Patient Instructions: CVI Additional Instructions / Restrictions: 1. You have chronic venous insufficiency. This causes swelling in your legs, katherin if you are sitting at a desk with your legs hanging down all day. I advise you to lay down in bed twice a day for 30-60 minutes to elevate your legs. I also am giving you a prescription for some compression stockings that are easy to get on. You will need to take the prescription to [facility] to have them measure you. Put the stocking on as soon as you get up in the morning and do not take them off until you go to bed at night. do0 NOT salt your food. Salt makes you retain fluid and increases the swelling in the legs. Try and lose some weight........you will feel better and it will help control the swelling in your legs. Limit your fluid intake to 1500 cc's a day. 2. Get up and take a walk around your house every 1-2 hours........it helps to control swelling and it is good for heart health. 3. Take your medications exactly as prescribed. Always keep a card in your wallet listing all your medications and the doses in case you end up in an ER and they need to know your medications. 4. you have an infection in the legs called cellulitis. This happens a lot to people who chronically have swelling in the legs. The skin gets very dry and scaley and then it forms little cracks that let bacteria in. You were started on an antibiotic called Kemercy while on rehab and you are going to be taking this for 5 days after discharge from rehab. Make sure you take ALL the doses or the infection could come back. 5. Your blood sugars have been very well controlled on rehab on MUCH LESS insulin than you were taking at home. This is likely because you have been on a healthy diet with calorie and portion control. You blood sugars will go up at home IF you do not stick to a similar diet at home. If your blood sugars at home are consistently > 250 you will need to call Dr. Lewis for instructions on what to do with the insulin dosing. 6. If you or your family have any questions after you leave rehab please do not hesitate to call me. OFFICE: [phone] CELL: [phone] NURSES STATION ON REHAB: [phone] Discharge Orders/Prescriptions Prescriptions: New bumetanide 2 mg Tablet 2 mg PO DAILY Qty: 30 0RF cephalexin 500 mg Capsule 500 mg PO Q8 Qty: 15 0RF Rx Instructions: Take this med 3 times a day until ALL gone doxazosin 2 mg tablet 2 mg PO QHS Qty: 30 0RF Rx Instructions: Take this medication once a day at bedtime nifedipine 30 mg Tablet Extended Release 24hr 30 mg PO DAILY Qty: 30 0RF lisinopril 20 mg Tablet 20 mg PO BID Qty: 60 0RF spironolactone 25 mg Tablet 25 mg PO BID Qty: 60 0RF magnesium chloride [Mag 64] 64 mg Tablet,Delayed Release (Dr/Ec) 128 mg PO BID Qty: 60 0RF insulin glargine-yfgn 100 unit/mL (3 mL) Insulin Pen 15 unit subcut QHS Qty: 3 0RF tramadol 50 mg Tablet 50 mg PO 0800,1500 PRN (Reason: pain) Qty: 60 0RF Rx Instructions: Take 1 tablet every 12 hours as needed for pain. NO MORE THAN 2 TABS A DAY. potassium chloride 20 mEq tablet extended release 20 meq PO BID Qty: 60 0RF Continued aspirin [Adult Aspirin Regimen] 81 mg tablet,delayed release (DR/EC) 81 mg PO DAILY carvedilol 25 mg tablet 12.5 mg PO BID Qty: 15 0RF Rx Instructions: must administer with a meal/food. Take 1/2 tablet twice daily with a meal gabapentin 600 mg tablet 600 mg PO BID Qty: 60 0RF isosorbide mononitrate 30 mg tablet extended release 24 hr 30 mg PO DAILY Qty: 30 0RF sertraline 100 mg tablet 100 mg PO DAILY Qty: 30 0RF allopurinol 100 mg tablet 100 mg PO QDAY Qty: 30 0RF hydralazine 100 mg tablet 100 mg PO TID Qty: 90 0RF pantoprazole 40 mg tablet,delayed release (DR/EC) 40 mg PO QDAY Qty: 30 0RF Discontinued Novolin N NPH U-100 Insulin 100 unit/mL suspension See Protocol subcut TID Protocol: 1. Sliding Scale Insulin Low Dosing Condition: 150-224 mg/dl = 1 unit Condition: 225-299 mg/dl = 2 units Condition: 300-374 mg/dl = 3 units Condition: 375-449 mg/dl = 4 units Condition: Greater than 449 call physician Protocol Text: Suggested for: - Patients on Total Daily Insulin Dose of 15-27 units - Thin, elderly, renal patients LOW DOSING ALGORITHM Rx Instructions: SLIDING SCALE Referrals / Follow Up: Griselda Prieto MD [Med Staff - Consulting] - 01/11/25 2:45 pm (YOU WILL BE SEEING MADALYN EDWARD) Vesta Lewis DO [Primary Care Provider] - 12/29/24 3:00 pm Disposition Disposition (needs filled in before D/C Order can be placed): Home, Self Care
--- NOTE | 2024-12-27 14:53 | CHAPLAIN ---
Type of Pastoral Visit ___ Initial Visit _x__ Follow-up Visit ___ On-call Visit ___ General Patient Visit ___ Spiritual Assessment ___ Family Conference ___ Bereavement ___ Rapid Response ___ Code Blue ___ Other (describe below) Pastoral Care Referral From _x__ Patient ___ Family ___ Nurse ___ Physician ___ Chief Accountant ___ Ladle Builder ___ Other (describe below) Sacrament/Intervention _x__ Active listening ___ Anointing ___ Latter-Day ___ Bereavement ___ Communion ___ Celeste exploration ___ ___ Life review _x__ Prayer ___ Reconciliation ___ Sacrament of Sick _x__ Supportive presence ___ Wedding ___ Other (describe below) Pastoral Comments follow up to this patient who had a in the family last week; pt speaks of his not being able to go home yet although it was planned for it to happen; pt admits not being able to go to sister's is also disappointing; pt acknowledges that these hopes were just no possible and that I have to accept it; time given to sit with patient, listen for concerns, and a prayer
--- NOTE | 2024-12-27 15:18 | PCM.DC.SUM ---
Providers Date of Admission: 12/13/24 Date of Discharge: 12/29/24 Primary Care Physician: Dr. Vesta Lewis, Reason For Visit: DEBILITY DUE TO ARF WITH ACUTE UREMIA Diagnosis Discharge Diagnosis (1) Physical debility: Status: Acute Code(s): R53.81 - Other malaise (2) Acute renal failure superimposed on stage 3 chronic kidney disease: Status: Resolved Code(s): N17.9 - Acute kidney failure, unspecified; N18.30 - Chronic kidney disease, stage 3 unspecified Qualifiers: Acute renal failure type: unspecified Chronic kidney disease stage 3 subtype: unspecified whether 3a or 3b Qualified Code(s): N17.9 - Acute kidney failure, unspecified; N18.30 - Chronic kidney disease, stage 3 unspecified Plan: Was secondary to influenza which caused severe dehydration leading to ARF/hyperkalemia. (3) Acute uremia: Status: Resolved Code(s): N19 - Unspecified kidney failure Plan: Dialyzed twice. Creat is stable at 1.26 at the time of DC from acute rehab. (4) Hypokalemia: Status: Chronic Code(s): E87.6 - Hypokalemia Plan: Lisinopril, potassium and spironolactone were all discontinued due to acute uremia with hyperkalemia. We have added back Lisinopril and spironolactone but, at lower doses than he was taking prior to ARF. We have been increasing doses slowly in light of the recent ARF. (5) Normochromic normocytic anemia: Status: Acute Code(s): D64.9 - Anemia, unspecified Plan: HGB is stable at 9.3 at the time of DC (6) Hypophosphatemia: Status: Resolved Code(s): E83.39 - Other disorders of phosphorus metabolism (7) Hypoalbuminemia: Status: Acute Code(s): E88.09 - Other disorders of plasma-protein metabolism, not elsewhere classified Plan: Was not responding adequately to diuretics alone. ALB was 1.6 at presentation to rehab. He was given 50 GM of IV albumin followed by IV Lasix 80 mg and he has been diuresing well since. Wt at DC from rehab is 295 pounds. Edema in the Legs is much improved. (8) Generalized weakness: Status: Chronic Code(s): R53.1 - Weakness (9) Recurrent major depression: Status: Chronic Code(s): F33.9 - Major depressive disorder, recurrent, unspecified Qualifiers: Active/Remission status: remission status unspecified Qualified Code(s): F33.9 - Major depressive disorder, recurrent, unspecified (10) Hypertension: Status: Chronic Code(s): I10 - Essential (primary) hypertension Qualifiers: Hypertension type: primary hypertension Qualified Code(s): I10 - Essential (primary) hypertension Plan: Blood pressure for the 24 hours preceding discharge has ranged from 129/41 to 143/63. (11) Sleep apnea: Status: Chronic Code(s): G47.30 - Sleep apnea, unspecified Qualifiers: Sleep apnea type: obstructive Qualified Code(s): G47.33 - Obstructive sleep apnea (adult) (pediatric) Plan: Compliant with CPAP (12) High cholesterol: Status: Chronic Code(s): E78.00 - Pure hypercholesterolemia, unspecified (13) Diabetes mellitus, type 2: Status: Chronic Code(s): E11.9 - Type 2 diabetes mellitus without complications Qualifiers: Chronic kidney disease stage: stage 3 (moderate) Chronic kidney disease stage 3 subtype: unspecified whether 3a or 3b Diabetes mellitus complication detail: with chronic kidney disease Diabetes mellitus complication status: with kidney complications Diabetes mellitus [facility] insulin use: with [facility] use Qualified Code(s): E11.22 - Type 2 diabetes mellitus with diabetic chronic kidney disease; N18.30 - Chronic kidney disease, stage 3 unspecified; Z79.4 - [facility] (current) use of insulin Plan: Very well-controlled in the hospital on a carb consistent 1800-calorie diet and only 15 units of glargine at HS. I expect the blood sugars will soar at home due to chronic non-compliance with diet. Will need to follow up with Dr. Lewis to adjust insulin as needed. (14) Chronic renal failure, stage 3 (moderate): Status: Chronic Code(s): N18.30 - Chronic kidney disease, stage 3 unspecified Qualifiers: Chronic kidney disease stage 3 subtype: unspecified whether 3a or 3b Qualified Code(s): N18.30 - Chronic kidney disease, stage 3 unspecified Plan: 3A (15) Hypernatremia: Status: Acute Code(s): E87.0 - Hyperosmolality and hypernatremia (16) Hypomagnesemia: Status: Acute Code(s): E83.42 - Hypomagnesemia Plan: Continue MAG chloride 128 mg BID at DC. (17) Cellulitis and abscess of left leg: Status: Acute Code(s): L03.116 - Cellulitis of left lower limb; L02.416 - Cutaneous abscess of left lower limb Plan: Improving with Keflex. Will complete a 7 day course of antibiotics. No rash on Keflex. (18) Proteinuria: Status: Chronic Code(s): R80.9 - Proteinuria, unspecified Qualifiers: Proteinuria type: unspecified Qualified Code(s): R80.9 - Proteinuria, unspecified (19) Presbycusis: Status: Acute Code(s): H91.10 - Presbycusis, unspecified ear Qualifiers: Laterality: unspecified laterality Qualified Code(s): H91.10 - Presbycusis, unspecified ear (20) Diabetic neuropathy, type II diabetes mellitus: Status: Chronic Code(s): E11.40 - Type 2 diabetes mellitus with diabetic neuropathy, unspecified Qualifiers: Diabetes mellitus [facility] insulin use: with [facility] use Qualified Code(s): E11.40 - Type 2 diabetes mellitus with diabetic neuropathy, unspecified; Z79.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 DC home 2. Follow up with Dr. Lewis within the next week 3. Follow up with Dr. Prieto on 01/11/2025 at 2:45 PM 4. RX given for compression stockings - will follow up at [facility] to be measured. 5. will need a BMP and mag in 3-5 days post DC from rehab. 6. Stool was Hemoccult negative on 12/26/2024. Medications at Discharge Home Medications aspirin 81 mg tablet,delayed release (Adult Aspirin Regimen) 81 mg PO DAILY [facility] 09/20/24 allopurinol 100 mg tablet 100 mg PO QDAY gout #30 tabs 12/27/24 bumetanide 2 mg tablet 2 mg PO DAILY #30 tabs 12/27/24 carvedilol 25 mg tablet 12.5 mg (1/2 x 25 mg) PO BID HTN #15 tabs 12/27/24 cephalexin 500 mg capsule 500 mg PO Q8 #15 caps 12/27/24 doxazosin 2 mg tablet 2 mg PO QHS #30 tabs 12/27/24 gabapentin 600 mg tablet 600 mg PO BID pain #60 tabs 12/27/24 hydralazine 100 mg tablet 100 mg PO TID HTN #90 tabs 12/27/24 insulin glargine-yfgn 100 unit/mL (3 mL) subcutaneous pen 15 unit (0.15 mL) subcut QHS #3 pens 12/27/24 isosorbide mononitrate 30 mg tablet,extended release 24 hr 30 mg PO DAILY BP #30 tabs 12/27/24 lisinopril 20 mg tablet 20 mg PO BID #60 tabs 12/27/24 magnesium chloride 64 mg (magnesium chloride) tablet,delayed release (Mag 64) 128 mg (2 x 64 mg) PO BID #60 tabs 12/27/24 nifedipine 30 mg tablet,extended release 24 hr 30 mg PO DAILY #30 tabs 12/27/24 pantoprazole 40 mg tablet,delayed release 40 mg PO QDAY REFLUX #30 tabs 12/27/24 sertraline 100 mg tablet 100 mg PO DAILY DEPRESSION #30 tabs 12/27/24 spironolactone 25 mg tablet 25 mg PO BID #60 tabs 12/27/24 tramadol 50 mg tablet 50 mg PO 0800,1500 PRN pain #60 tabs 12/27/24 potassium chloride 20 mEq tablet,extended release 20 meq PO BID #60 tabs 12/28/24 Hospital Course Operations None Procedures None and - (Had dialysis twice at [facility] prior to admission to rehab) Summary of Care Provided Minutes Spent on Discharge: 42 Hospital Course: GOLDEN BEEBE, is a 84-year-old M with a past medical history of diabetes mellitus type 2/insulin-dependent complicated by neuropathy, GERD, CHF, hypertension, chronic renal failure stage III, obstructive sleep apnea on CPAP, TIA's in the past, CAD with history of CABG, aortic stenosis (status post TAVR), history of colon cancer, left bundle branch block, peripheral vascular disease, hyperuricemia on allopurinol, depression, chronic venous insufficiency and morbid obesity who presented to the ED at [facility] with c/o nausea/vomiting/diarrhea/confusion/weakness for few days. Significant lab in the emergency department was a creatinine of 6 (baseline is 1.5-1.7). A CT scan of the abdomen and pelvis without contrast was unremarkable with the exception of a hypodense region of the posterior right hepatic lobe which could be artifact. A follow-up ultrasound was recommended. CT of the head showed no acute intracranial abnormality. Ultrasound of the kidneys showed no obstruction or acute findings in the kidneys. There was mild renal cortical thinning and borderline echogenicity suggesting medical renal disease. There were tiny nonobstructing calculi or vascular calcifications in the left kidney. Chest x-ray showed possible pulmonary edema with trace bilateral pleural effusions. Serum bicarb was 19 and the venous pH was 7.19. He was transferred to [facility] for nephrology consultation. He was emergently dialyzed on 12/09/2024 and was dialyzed again on 12/10/2024. He was started on a continuous infusion of bicarbonate. He only had to be dialyzed twice. Bumex, potassium, Aldactone and Lisinopril were held. With hydration and dialysis the acute renal failure was much improved. Creatinine prior to discharge from [facility] was 1.61 which is within his baseline. Nephrology felt he may have a component of interstitial nephritis because of hypereosinophilia and he was placed on Solumedrol. Cognition improved with resolution of uremia but, was not back to his baseline. He was seen by therapy and palliative care and acute rehab was recommended at [place]. He was transferred to the acute inpt rehab unit at [facility] on 12/13/24 for 3 hours of therapy daily to restore function/independence at or near his level prior to the recent decline. Lab at admission showed a sodium of 141 with a potassium of 2.8. The BUN was 58 with a creatinine of 1.61. Hemoglobin A1c was 7.5. Phosphorus was low at 2.4. Later on during his admission following diuretics the magnesium dropped to 1.5 and he was placed on a magnesium supplement. Phosphorus was supplemented and returned to normal prior to discharge. Albumin was 1.6 at admission to acute rehab. Hemoglobin at admission was 10.2 with normochromic normocytic indices. Hemoccult stool was negative. He had a UA that showed proteinuria with 0-5 WBCs and 5-10 RBCs. There was 2+ bacteria but the urine culture grew only Staph epidermidis and the urine was clear so this was not treated with antibiotics. Golden was reportedly taking NPH insulin 3 times a day at home on a sliding scale but neither Golden nor his family could tell us what that scale wants. He was placed on an 1800-calorie, carb consistent, heart healthy diet and 15 units of glargine at bedtime. The blood sugars have been very well-controlled while on rehab. The only medication he is needed is the glargine 15 units at bedtime. I expect that the blood sugars will increase significantly following DC because his family tells me that he eats what he wants and has no portion control. Will defer adjusting insulin to Dr. Lewis......HGBA1C was 7.5 at admission to rehab so the NPH TID scale was effective. Golden has chronic venous insufficiency and he sits with his legs dependent most of the day. Diuretics were restarted on rehab but, he failed to diurese. On 12/26/24 he was given 50 GM of IV albumin followed by 80 mg of Lasix and he had a good diuresis. The following day the weight and the edema were down. On 12/26 he had redness and increased warmth of the legs distal to the knee, L>R. He was placed on Keflex and on 12/27/24 the redness had improved and there were no openings in the skin. We have been using GERARD wraps to provide compression to the legs. Golden has compression stockings at home but, does not wear them because he is unable to get them on. He was given a prescription for compression stockings that start at the ankle and go to the knee and they have Velcro straps which makes them much easier to apply. He is to take this prescription to [facility] and be measured for stockings. At the time of DC from rehab he is ambulating well with a FWW. He gets SOB with exertion and feels fatigued but, he is able to ambulate 240' + without stopping. SOB resolves with sitting. He is able to ascend/descend 5 steps of various heights with 2 handrails at contact-guard assist. He is independent with eating and supervision/set up for grooming. He is also supervision/set up for bathing, upper body dressing and lower body dressing. He is contact-guard assist for toilet transfer and standby assist for toileting......using a lower toilet. He is standby assist for tub/shower transfer. Hemoglobin is stable at 9.3 on the day of discharge. Sodium is elevated at 150 and the potassium is 3.3. The potassium supplement was increased to twice daily at discharge. He was started back on lisinopril and spironolactone within the past couple days. Serum bicarb is 27 and the BUN is 21 with a stable creatinine at 1.26. Blood sugars are well-controlled on only 15 units of glargine at bedtime with no hypoglycemia. Blood pressure for the 24 hours preceding discharge ranged from 129/41 to 143/63. Recently restarted Lisinopril at 20 mg BID. He has follow up appts with Dr. Lewis and Dr. Prieto (nephrology) scheduled. Will need a BMP and MAG in the next 3-5 days. Will likely need to have insulin adjusted because I doubt he will be adhering to a 1800 calorie carb consistent diet at [place]. He will have outpatient therapy at [facility] outpatient department. Physical Exam Const alert, oriented x3 and no apparent distress Constitutional Narrative: Lying in bed resting when I entered the room. Can lie almost flat without SOB. Denies PND. General Appearance: cooperative HEENT normocephalic and head/scalp atraumatic Eyes PERRL, EOMs intact bilaterally, conjunctivae normal and no scleral icterus Eyes Narrative: No discharge from the eyes. General Eye: normal appearance of both eyes Neck supple Chest Chest: symmetrical chest wall rise Resp clear to auscultation bilaterally Resp Narrative: Diminished throughout but especially in the bases. No crackles and no wheezes. He is not tachypneic and has no conversational dyspnea. No orthopnea no paroxysmal nocturnal dyspnea. Pulse ox is 95 to 96% on room air. Has been compliant with CPAP at night. Cardio regular rate, regular rhythm, no rub and no gallops Cardio Narrative: Heart sounds are distant and I suspect this has a lot to do with the body habitus. Radial pulses are 2+ bilaterally. He has a 2/6 systolic ejection murmur heard best at the second right intercostal space with radiation to the lower left sternal border and the apex. No ectopy. Heart rate over the past 24 hours and most of the admission has ranged from 56-67. GI normal to inspection, nondistended, normoactive bowel sounds, soft to palpation and non-tender GI Narrative: No guarding with palpation. Extremity Extremity Narrative: The erythema of the left lower extremity is much improved and now there is only mild pinkish discoloration. There are no openings in the skin. The skin is dry and flaky. Moisturizer was applied. Small patch of pinkish discoloration over the bravo on the right lower extremity proximal to the ankle. No openings in the skin, no discharge. Moisturizer was also applied to the right lower extremity. Skin Skin Narrative: No rashes. Psych cooperative and affect normal Appearance: appropriate and well kempt Attitude: calm and engaged Activity / Motor Behavior: appropriate eye contact Weight / BMI Weight Weight: 294 lb 15.656 oz Body Mass Index (BMI) 41.1 ABG / Lab / Microbiology Data 12/28/24 05:12 12/28/24 05:12 Laboratory: Laboratory Results - last 24 hr 12/27/24 08:33: Sodium 148 H, Potassium 3.0 L, Chloride 116 H, Carbon Dioxide 28.0, Anion Gap 4 L, BUN 18, Creatinine 1.25, Estim Creat Clear Calc 59.66, Est GFR (MDRD) Af Amer 70, Est GFR (MDRD) Non-Af 58 L, BUN/Creatinine Ratio 14.4, Glucose 152 H, Calcium 8.2 L 12/27/24 16:28: POC Glucose 129 H 12/27/24 20:59: POC Glucose 161 H 12/28/24 05:12: Hgb 9.3 L, Hct 28.2 L, Sodium 150 H, Potassium 3.3 L, Chloride 116 H, Carbon Dioxide 27.0, Anion Gap 7, BUN 21 H, Creatinine 1.26, Estim Creat Clear Calc 59.19, Est GFR (MDRD) Af Amer 70, Est GFR (MDRD) Non-Af 58 L, BUN/Creatinine Ratio 16.7, Glucose 121 H, Calcium 8.1 L 12/28/24 07:09: POC Glucose 119 H Microbiology: Microbiology 12/26/24 13:45 Stool Stool Occult Blood (ROXANNE) - Final 12/14/24 17:15 Urine, Clean Catch Urine Culture - Final Staphylococcus epidermidis D/C Instructions Discharge Diet: - (Low salt diet and carbohydrate limited diet. Do not drink more than 1500 cc of fluid daily. This is 30 ounces. Sticking to this limit will help to control the swelling in your legs. Measure out all your liquids so you will be able to stick to 1500 cc's a day.) Weight Bearing Status: Full weight bearing Keep extremity elevated above heart level: Legs (Lay down in bed twice a day for 30-60 minutes to elevate the legs. This will help to limit the swelling in your legs. ) Call your doctor if you observe: Fever of 101 or Higher, Inability to urinate, Shortness of breath, Dizziness, Fainting spells, Swelling in the ankles, Chest pain and - (Weigh yourself every morning after urinating. IF your weight increases by 5 lbs or more in 1 week this means you are retaining fluid and you need to cut back on salt and call Dr. Mendoza for instructions on what to do with the diuretic (Bumex). ) Additional Dressing/Incision Instructions: You should moisturize your legs every night with Eucerin Intensive repair....they sell this at [employer]. when the skin gets dry and flakey it allows bacteria to get under the skin and cause an infection. DC O2, CPAP, BIPAP Needs Home O2 Discharge instructions: No Pending Tests Upon Discharge: none Please Follow Up With: Vesta Lewis DO [employer] Info Meaningful Use Meaning[employer] Use Diagnoses (Choose all that apply): None applicable Ischemic Stroke Statin Dosing Therapy Reference: STATIN DOSE THERAPY REFERENCE: * Patients > 75 years receive moderate or high dose statin therapy. * Patients 75 years or YOUNGER should receive HIGH intensity statin dose unless contraindicated. You will be required to document reason for non-treatment if statin daily dose does not meet guidelines. HIGH DOSE STATIN THERAPY DAILY Atorvastatin > than or = to 40 mg Rosuvastatin > than or = to 20 mg Amlodipine + Atorvastatin > than or = to 2.5/40 mg Ezetimibe + Simvastatin 10/80 mg Simvastatin 80mg Discharge Plan Admission Admit Date/Time: 12/13/24 18:59 Primary Reason for Your Visit: Debility due to renal failure. Attending Provider: Kierra Jacobson Primary Care Provider: Vesta Lewis Instructions Patient Instructions: CVI Additional Instructions / Restrictions: 1. You have chronic venous insufficiency. This causes swelling in your legs, katherin if you are sitting at a desk with your legs hanging down all day. I advise you to lay down in bed twice a day for 30-60 minutes to elevate your legs. I also am giving you a prescription for some compression stockings that are easy to get on. You will need to take the prescription to [facility] to have them measure you. Put the stocking on as soon as you get up in the morning and do not take them off until you go to bed at night. do0 NOT salt your food. Salt makes you retain fluid and increases the swelling in the legs. Try and lose some weight........you will feel better and it will help control the swelling in your legs. Limit your fluid intake to 1500 cc's a day. 2. Get up and take a walk around your house every 1-2 hours........it helps to control swelling and it is good for heart health. 3. Take your medications exactly as prescribed. Always keep a card in your wallet listing all your medications and the doses in case you end up in an ER and they need to know your medications. 4. you have an infection in the legs called cellulitis. This happens a lot to people who chronically have swelling in the legs. The skin gets very dry and scaley and then it forms little cracks that let bacteria in. You were started on an antibiotic called Keflex while on rehab and you are going to be taking this for 5 days after discharge from rehab. Make sure you take ALL the doses or the infection could come back. 5. Your blood sugars have been very well controlled on rehab on MUCH LESS insulin than you were taking at home. This is likely because you have been on a healthy diet with calorie and portion control. You blood sugars will go up at home IF you do not stick to a similar diet at home. If your blood sugars at home are consistently > 250 you will need to call Dr. Lewis for instructions on what to do with the insulin dosing. 6. If you or your family have any questions after you leave rehab please do not hesitate to call me. OFFICE: [phone] CELL: [phone] NURSES STATION ON REHAB: [phone] Discharge Orders/Prescriptions Prescriptions: New bumetanide 2 mg Tablet 2 mg PO DAILY Qty: 30 0RF cephalexin 500 mg Capsule 500 mg PO Q8 Qty: 15 0RF Rx Instructions: Take this med 3 times a day until ALL gone doxazosin 2 mg tablet 2 mg PO QHS Qty: 30 0RF Rx Instructions: Take this medication once a day at bedtime nifedipine 30 mg Tablet Extended Release 24hr 30 mg PO DAILY Qty: 30 0RF lisinopril 20 mg Tablet 20 mg PO BID Qty: 60 0RF spironolactone 25 mg Tablet 25 mg PO BID Qty: 60 0RF magnesium chloride [Mag 64] 64 mg Tablet,Delayed Release (Dr/Ec) 128 mg PO BID Qty: 60 0RF insulin glargine-yfgn 100 unit/mL (3 mL) Insulin Pen 15 unit subcut QHS Qty: 3 0RF tramadol 50 mg Tablet 50 mg PO 0800,1500 PRN (Reason: pain) Qty: 60 0RF Rx Instructions: Take 1 tablet every 12 hours as needed for pain. NO MORE THAN 2 TABS A DAY. potassium chloride 20 mEq tablet extended release 20 meq PO BID Qty: 60 0RF Continued aspirin [Adult Aspirin Regimen] 81 mg tablet,delayed release (DR/EC) 81 mg PO DAILY carvedilol 25 mg tablet 12.5 mg PO BID Qty: 15 0RF Rx Instructions: must administer with a meal/food. Take 1/2 tablet twice daily with a meal gabapentin 600 mg tablet 600 mg PO BID Qty: 60 0RF isosorbide mononitrate 30 mg tablet extended release 24 hr 30 mg PO DAILY Qty: 30 0RF sertraline 100 mg tablet 100 mg PO DAILY Qty: 30 0RF allopurinol 100 mg tablet 100 mg PO QDAY Qty: 30 0RF hydralazine 100 mg tablet 100 mg PO TID Qty: 90 0RF pantoprazole 40 mg tablet,delayed release (DR/EC) 40 mg PO QDAY Qty: 30 0RF Discontinued Novolin N NPH U-100 Insulin 100 unit/mL suspension See Protocol subcut TID Protocol: 1. Sliding Scale Insulin Low Dosing Condition: 150-224 mg/dl = 1 unit Condition: 225-299 mg/dl = 2 units Condition: 300-374 mg/dl = 3 units Condition: 375-449 mg/dl = 4 units Condition: Greater than 449 call physician Protocol Text: Suggested for: - Patients on Total Daily Insulin Dose of 15-27 units - Thin, elderly, renal patients LOW DOSING ALGORITHM Rx Instructions: SLIDING SCALE Referrals / Follow Up: Griselda Prieto MD [Med Staff - Consulting] - 01/11/25 2:45 pm (YOU WILL BE SEEING MADALYN EDWARD) Vesta Lewis DO [Primary Care Provider] - 12/29/24 3:00 pm Disposition Disposition (needs filled in before D/C Order can be placed): Home, Self Care Charges/Coding Visit Charges Inpatient E&M: 38867 Disch Hosp >30min
[2024-12-27 16:59] LABS: Bedside Glucose 129 mg/dL (74-106)
[2024-12-27] MEDS: Doxazosin 1 MG Tablet 2 MG PO (21:39)
[2024-12-27] MEDS: Senna/Docusate Sodium 1 Tablet 2 TABLET PO (21:39)
[2024-12-27] MEDS: Insulin Glargine-YFGN 100 UNIT/ML Pen 15 UNIT SC (21:41)
[2024-12-27 21:48] LABS: Bedside Glucose 161 mg/dL (74-106)
[2024-12-28 05:53] LABS: Hematocrit 28.2 % (40-54); Hemoglobin 9.3 g/dL (13.0-16.5)
[2024-12-28 06:00] VITALS: BP 139/45; PULSE 56; RESP 16; TEMP 36.6; O2SAT 95; BMI 41.1
[2024-12-28 06:05] LABS: Anion Gap 7 (5-15); BUN 21 mg/dL (7-18); BUN/Creat Ratio 16.7 RATIO (10-20); Calcium,Total 8.1 mg/dL (8.5-10.1); Chloride 116 mmol/L (98-107); Creatinine, Serum 1.26 mg/dL (0.70-1.30); EST Glomerular Filtration Rate 58 mL/min (>60); Est Glom Filt Rate - Afr Amer 70 mL/min (>60); Estimated Creatinine Clearance 59.19 ml/min; Glucose 121 mg/dL (74-106); Potassium 3.3 mmol/L (3.5-5.1); Sodium Level 150 mmol/L (136-145)
[2024-12-28 06:58] VITALS: PULSE 56
[2024-12-28] MEDS: hydrALAZINE 50 MG Tablet 100 MG PO ×2 (06:58→13:48)
[2024-12-28] MEDS: Heparin Injection (Vial) 5,000 UNIT/ML VIAL 5000 UNIT SC ×2 (06:58→14:31)
[2024-12-28] MEDS: Cephalexin 500 MG Capsule PO ×2 (06:59→13:49)
[2024-12-28 07:28] LABS: Bedside Glucose 119 mg/dL (74-106)
[2024-12-28] MEDS: Potassium Chloride Oral Tablet 20 MEQ PO (08:21)
[2024-12-28] MEDS: Carvedilol 12.5 MG Tablet PO (08:21)
[2024-12-28] MEDS: traMADol 50 MG Tablet PO ×2 (08:21→14:31)
[2024-12-28] MEDS: Aspirin E.C. 81 MG Tablet PO (08:21)
[2024-12-28] MEDS: Spironolactone 25 MG Tablet PO (08:21)
[2024-12-28] MEDS: Allopurinol 100 MG Tablet PO (08:21)
[2024-12-28] MEDS: Isosorbide Mononitrate 30 MG Tablet PO (08:22)
[2024-12-28] MEDS: NIFEdipine 30 MG Tablet PO (08:22)
[2024-12-28] MEDS: Lisinopril 20 MG Tablet PO (08:22)
[2024-12-28] MEDS: Bumetanide 2 MG Tablet PO (08:22)
[2024-12-28] MEDS: Magnesium Chloride 64 MG Delay Rel.Tablet 128 MG PO (08:22)
[2024-12-28] MEDS: Sertraline 100 MG Tablet PO (08:23)
[2024-12-28] MEDS: Senna/Docusate Sodium 1 Tablet 2 TABLET PO (08:23)
[2024-12-28] MEDS: Potassium Chloride Oral Tablet 20 MEQ 40 MEQ PO (08:25)
[2024-12-28] MEDS: Gabapentin 600 MG Tablet PO (08:25)
[2024-12-28 10:00] VITALS: BP 132/48; PULSE 64; RESP 14; TEMP 37.1; O2SAT 95
[2024-12-28 13:48] VITALS: BP 137/49; PULSE 60
[2024-12-28 14:00] VITALS: BP 137/49; PULSE 60; RESP 14; TEMP 37.1; O2SAT 95
== END 2024-12-28 15:30 | disposition home or self-care (01) | DRG 682 ==
PROVIDERS: Admitting Provider Internal Medicine; PCP Family Medicine; Visit Provider Internal Medicine
DX: N17.9 Acute kidney failure, unspecified (principal); I50.33 Acute on chronic diastolic (congestive) heart failure; E87.20 Acidosis, unspecified; L02.416 Cutaneous abscess of left lower limb; E87.0 Hyperosmolality and hypernatremia; Z68.41 Body mass index [BMI] 40.0-44.9, adult; F33.9 Major depressive disorder, recurrent, unspecified; I13.0 Hypertensive heart and chronic kidney disease with heart failure and stage 1 through stage 4 chronic kidney disease, or unspecified chronic kidney disease; L03.116 Cellulitis of left lower limb; E88.09 Other disorders of plasma-protein metabolism, not elsewhere classified; E83.39 Other disorders of phosphorus metabolism; E11.59 Type 2 diabetes mellitus with other circulatory complications; N18.30 Chronic kidney disease, stage 3 unspecified; D64.9 Anemia, unspecified; G47.33 Obstructive sleep apnea (adult) (pediatric); E83.42 Hypomagnesemia; I87.2 Venous insufficiency (chronic) (peripheral); Z79.4 Long term (current) use of insulin; I25.10 Atherosclerotic heart disease of native coronary artery without angina pectoris; E11.22 Type 2 diabetes mellitus with diabetic chronic kidney disease; E66.01 Morbid (severe) obesity due to excess calories; E11.51 Type 2 diabetes mellitus with diabetic peripheral angiopathy without gangrene; E87.6 Hypokalemia; E11.40 Type 2 diabetes mellitus with diabetic neuropathy, unspecified; E78.00 Pure hypercholesterolemia, unspecified; Z79.899 Other long term (current) drug therapy; Z79.82 Long term (current) use of aspirin
CPT/HCPCS: 36415; 80048; 80053; 81001; 82040; 82274; 82962; 83036; 83735; 84100; 84132; 84550; 85014; 85018; 85025; 85027; 85610; 85730; 87077; 87086; 87088; 87186; 92507; 92523; 97110; 97112; 97116; 97129; 97130; 97162; 97166; 97530; 97535; 97803; P9047; A4216; J1940

== ENCOUNTER 2025-01-17 16:34 | Inpatient (IN) | payer MEDICARE, OTHER, SELFPAY ==
[2025-01-17 18:47] VITALS: BP 167/93; PULSE 72; RESP 17; TEMP 36.8; O2SAT 97; BMI 41.9
[2025-01-17 18:52] VITALS: BP 167/93; PULSE 72
[2025-01-17] MEDS: hydrALAZINE 10 MG Tablet PO (18:52)
[2025-01-17 22:00] VITALS: RESP 17; O2SAT 93
[2025-01-17 22:25] VITALS: BP 176/70; PULSE 78; RESP 17; TEMP 36.8; O2SAT 94
[2025-01-17 22:27] LABS: Bedside Glucose 174 mg/dL (74-106)
[2025-01-17] MEDS: Gabapentin 600 MG Tablet PO (22:34)
[2025-01-17] MEDS: Senna/Docusate Sodium 1 Tablet 2 TABLET PO (22:34)
[2025-01-17 22:35] VITALS: PULSE 87
[2025-01-17] MEDS: Magnesium Chloride 64 MG Delay Rel.Tablet 128 MG PO (22:35)
[2025-01-17] MEDS: hydrALAZINE 50 MG Tablet 100 MG PO (22:35)
[2025-01-17] MEDS: Spironolactone 25 MG Tablet PO (22:38)
[2025-01-17] MEDS: Insulin Glargine-YFGN 100 UNIT/ML Pen 15 UNIT SC (22:39)
--- NOTE | 2025-01-17 23:17 | CPS ---
set up pt own cpap machine with 2 l/m o2 bleed
[2025-01-18] VITALS (8 sets, daily range): BP systolic 137–177; BP diastolic 50–76; PULSE 61–70; RESP 19–20; TEMP 36.6–36.8; O2SAT 93–97
[2025-01-18] MEDS: hydrALAZINE 50 MG Tablet 100 MG PO ×3 (06:35→21:12)
[2025-01-18 07:04] LABS: Bedside Glucose 143 mg/dL (74-106)
[2025-01-18 07:31] LABS: Absolute Lymphocyte Count 0.85 X10^3/uL (0.83-4.51); Absolute Neutrophil Count 3.3 X10^3/uL (2.0-7.7); Basophil# 0.05 X10^3/uL; Basophil% 0.9 % (0-1); Eosinophil# 0.14 X10^3/uL; Eosinophils% 2.6 % (0-5); Hematocrit 28.8 % (40-54); Hemoglobin 9.1 g/dL (13.0-16.5); Lymphocyte # 0.85 X10^3/ul (0.83-4.51); Mean Corp Hgb Conc 31.6 g/dL (32-36); Mean Corpuscular Hgb 28.8 pg (27.0-32.0); Mean Corpuscular Volume 91.1 fL (80-94); Monocyte# 0.82 X10^3/uL; Monocyte% 15.4 % (0-10); NRBC Flagged by Analyzer 0 % (0-5); Neutrophil # 3.34 X10^3/uL (2.7-7.7); Neutrophil % 62.8 % (47-70); Platelet Count 270 K/mm3 (150-450); RBC Distribution Width CV 13.3 % (11.6-14.6); RBC Distribution Width SD 44.6 fl (35.1-43.9); Red Blood Count 3.16 M/mm3 (4.6-6.2); White Blood Count 5.3 K/mm3 (4.4-11.0)
[2025-01-18] MEDS: Magnesium Chloride 64 MG Delay Rel.Tablet 128 MG PO ×2 (08:12→21:16)
[2025-01-18] MEDS: Losartan Potassium 100 MG Tablet PO (08:12)
[2025-01-18] MEDS: Senna/Docusate Sodium 1 Tablet 2 TABLET PO (08:12)
[2025-01-18] MEDS: NIFEdipine 30 MG Tablet PO (08:12)
[2025-01-18] MEDS: Isosorbide Mononitrate 30 MG Tablet PO (08:12)
[2025-01-18] MEDS: Sertraline 100 MG Tablet PO (08:13)
[2025-01-18] MEDS: Spironolactone 25 MG Tablet PO ×2 (08:13→21:17)
[2025-01-18] MEDS: Aspirin E.C. 81 MG Tablet PO (08:13)
[2025-01-18] MEDS: Allopurinol 100 MG Tablet PO (08:13)
[2025-01-18] MEDS: Carvedilol 3.125 MG TABLET PO ×2 (08:13→16:41)
[2025-01-18] MEDS: Potassium Chloride Oral Tablet 20 MEQ PO ×2 (08:13→16:42)
[2025-01-18] MEDS: Empagliflozin 10 MG Tablet PO (08:13)
[2025-01-18] MEDS: Gabapentin 600 MG Tablet PO ×2 (08:19→21:26)
[2025-01-18 08:22] LABS: ALB/GLOB Ratio 0.8 RATIO (0.9-2.4); AST(SGOT) 36 U/L (<=37); Alanine Aminotransfer ALT/SGPT 28 U/L (<=46); Albumin, Serum 2.7 g/dL (3.4-4.8); Alkaline Phosphatase 60 U/L (40-129); Anion Gap 10 (5-15); BUN 26 mg/dL (4-19); BUN/Creat Ratio 21.8 RATIO (10-20); Calcium,Total 8.9 mg/dL (7.6-11.0); Carbon Dioxide 28.8 mmol/L (21.0-32.0); Chloride 104 mmol/L (98-108); EST Glomerular Filtration Rate 59 (>60); Estimated Creatinine Clearance 61.34 ml/min (50-250); Globulin 3.2 g/dL (2.2-4.2); Glucose 143 mg/dL (70-99); Magnesium 2.1 mg/dL (1.5-2.2); Potassium 3.4 mmol/L (3.3-5.1); Protein, Total 5.8 g/dL (5.9-8.4); Sodium Level 143 mmol/L (133-145); Total Bilirubin 0.23 mg/dL (0.00-1.30)
--- NOTE | 2025-01-18 08:39 | PCM.HP.STD ---
HPI - General General Date of Admission: 01/17/25 Date of Service: 01/18/25 HPI Narrative VALERIY BEEBE, is a 84 YO M who is well known to me from a recent admission to [facility] acute rehab from 12/13/24 to 12/27/24. Past medical history is significant for diabetes mellitus type 2/insulin-dependent complicated by neuropathy, GERD, heart failure with preserved ejection fraction, diastolic dysfunction, hypertension, chronic renal failure stage III, obstructive sleep apnea on CPAP and oxygen at night, remote TIAs, coronary artery disease with history of CABG, aortic stenosis with history of TAVR are, history of colon cancer, left bundle branch block, peripheral vascular disease, hyperuricemia, depression and morbid obesity. He was discharged from [facility] acute rehab on 12/27/24 and was readmitted to [facility] on 01/08/25 c/o SOB, fever/chills and cough. Tested + for influenza A. He was placed on Tamiflu. He was also placed on cefepime for suspected superimposed pneumonia when his oxygen requirements increased and the CXR worsened. He was hypoxic and required 6 LPM nasal O2. His oxygen requirement increased over the next few days and on 01/11 he was on 50% FIO via high flow NC. XRAY on 01/11 showed increasing bilateral alveolar opacities and small effusions. He underwent a Left thoracentesis on 01/10/25 with 550 cc of fluid removed. The fluid was a transudate. Cardiology was consulted. He received IV Albumin and IV Bumex 2 mg BID to aid in diuresis. RADHA showed a 60 to 65% ejection fraction with left ventricular hypertrophy. He had a dilated IVC. Oxygen requirements decreased with diuresis. He was transferred to the acute inpt rehab unit at [facility] on 01/17/25 for 3 hours of therapy daily to restore function at or near the level he had at [place] from acute rehab on 12/27/24. While at [facility] he had metabolic encephalopathy. He is not yet back to his baseline. He was slow to arouse when I went into his room. His responses to questions are slow and he is not making good eye contact with me. All lab was personally reviewed. The white blood cell count is normal at 5.3. Hemoglobin is stable at 9.1. Platelets are within normal limits. Sodium is 143 and the potassium is 3.4. Serum bicarb is normal. The BUN is 26 with a creatinine of 1.20. It was 1.26 at discharge from acute rehab in December. Albumin is 2.7. Phosphorus is normal at 3 and the magnesium is 2.1. LFTs are normal. Afebrile Heart rate has ranged from 78-87 since readmission to rehab. The blood pressure has ranged from 140/50 to 176/78. Pulse ox at rest is 93 to 94% on room air. He desaturates with ambulation and requires 2 L of nasal O2 to maintain an oxygen saturation of 93%. Weight today is 299 pounds and 9 ounces which is up from 295 pounds at discharge from acute rehab in December. The blood sugar record was reviewed. The at bedtime blood sugar was 174 and he received 15 units of glargine. The FBS is 143 today. Medication was reviewed. He has had 2 postvoid residuals since admission they were both less than 5. Last bowel movement was 01/17/2025 [facility] Medical History (Updated 01/18/25 @ 09:[address] Kierra Jacobson, ) (HFpEF) heart failure with preserved ejection fraction Diabetes mellitus, type 2 Hypertension History of CAD (coronary artery disease) Venous insufficiency Hyperuricemia Hyperlipidemia Cellulitis and abscess of left leg Proteinuria Chronic renal failure, stage 3 (moderate) Sleep apnea Hx of colon cancer, stage IV Morbid obesity with BMI of 40.0-44.9, adult Presbycusis Diabetic neuropathy, type II diabetes mellitus Normochromic normocytic anemia Wears hearing aid Wears glasses Wears dentures Arthritis Gout Non-smoker Shortness of breath on exertion History of echocardiogram History of rheumatic fever Cardiology follow-up encounter Cancer Myocardial infarction LBBB (left bundle branch block) History of TIAs Dizziness CAD in [place] artery Bradycardia Bladder incontinence Blood in stool Aortic stenosis Actinic keratosis Morbid obesity Neuropathy Chronic GERD MARTIN on CPAP Kidney disease, chronic, stage III (GFR 30-59 ml/min) Recurrent major depression Type 2 diabetes with complication Home Medications ?Medication ?Instructions ?Recorded ?Last Taken ?Type aspirin 81 mg tablet,delayed 81 mg PO DAILY heart health 09/20/24 12/14/24 History release (Adult Aspirin Regimen) allopurinol 100 mg tablet 100 mg PO QDAY gout #30 tabs 12/27/24 Unknown Rx gabapentin 600 mg tablet 600 mg PO BID pain #60 tabs 02/11/25 Unknown Rx hydralazine 100 mg tablet 100 mg PO TID HTN #90 tabs 12/27/24 Unknown Rx insulin glargine-yfgn 100 unit/mL 15 unit (0.15 mL) subcut QHS Blood 12/27/24 Unknown Rx (3 mL) subcutaneous pen sugar #3 pens isosorbide mononitrate 30 mg 30 mg PO DAILY BP #30 tabs 12/27/24 Unknown Rx tablet,extended release 24 hr magnesium chloride 64 mg 128 mg (2 x 64 mg) PO BID 12/27/24 Unknown Rx (magnesium chloride) supplement #60 tabs tablet,delayed release (Mag 64) nifedipine 30 mg tablet,extended 30 mg PO DAILY BP #30 tabs 12/27/24 Unknown Rx release 24 hr sertraline 100 mg tablet 100 mg PO DAILY DEPRESSION #30 tabs 12/27/24 Unknown Rx spironolactone 25 mg tablet 25 mg PO BID Fluid retention #60 12/27/24 Unknown Rx tabs potassium chloride 20 mEq 20 meq PO BID supplement #60 tabs 12/28/24 Unknown Rx tablet,extended release carvedilol 3.125 mg tablet (Coreg) 3.125 mg PO BID BP 01/17/25 Unknown History clonidine HCl 0.1 mg tablet 0.1 mg PO DAILY PRN BP 01/17/25 Unknown History empagliflozin 10 mg tablet 10 mg PO DAILY Blood sugar 01/17/25 Unknown History (Jardiance) hydralazine 10 mg tablet 10 mg PO Q3H PRN BP 01/17/25 Unknown History insulin lispro 200 unit/mL (3 mL) See Protocol subcut ACHS Blood 01/17/25 Unknown History subcutaneous pen (Humalog KwikPen sugar U-200 Insulin) losartan 100 mg tablet (Cozaar) 100 mg PO DAILY BP 01/17/25 Unknown History Allergy/AdvReac Type Severity Reaction Status Date / Time amlodipine (From [facility]) Allergy Intermediate Other Verified 12/01/24 09:00 hydrochlorothiazide Allergy Intermediate Other Verified 12/01/24 09:00 olmesartan Allergy Intermediate Other Verified 12/01/24 09:00 penicillin G benzathine Allergy Intermediate Other Verified 12/01/24 09:00 Penicillins (PCN) Allergy Intermediate Other Verified 12/01/24 09:00 pravastatin Allergy Intermediate Other Verified 12/01/24 09:00 valsartan (From [facility]) Allergy Intermediate Other Verified 12/01/24 09:00 Family History Father Heart disease Prostate cancer CAD (coronary artery disease) Sister HLD (hyperlipidemia) Hypertension Surgical History History of cardiac catheterization History of heart surgery History of cataract extraction with lens replacement Hx of CABG Hx of tonsillectomy H/O colectomy Hx of ileostomy H/O endarterectomy S/P TAVR (transcatheter aortic valve replacement) Social History household members: spouse housing: other details: Lives in a [id number] suite at his daughter Dominique's home. Smoking Status: Never smoker alcohol intake: never substance use type: does not use ROS Constitutional Constitutional: Reports fatigue and weakness; Denies anorexia, change in weight, chills, fever(s) or night sweats Eyes Eyes: Denies blurry vision, change in vision, eye pain or loss of vision ENT HEENT: Reports abnormal hearing and hearing loss; Denies dysphagia, headache(s), nasal congestion or sore throat Cardiovascular Cardiovascular: Reports dyspnea on exertion; Denies chest pain, edema, lightheadedness, orthopnea, palpitations, paroxysmal nocturnal dyspnea or syncope Respiratory/Chest Respiratory/Chest: Reports shortness of breath with exertion; Denies cough, dyspnea, shortness of breath at rest or wheezing Gastrointestinal Gastrointestinal: Denies abdominal pain, constipation, diarrhea, dyspepsia, hematemesis, hematochezia, nausea or vomiting Genitourinary Genitourinary: Denies dysuria, hematuria, nocturia, urinary frequency, urinary hesitancy, urinary incontinence or urinary urgency Musculoskeletal Musculoskeletal: Denies back pain, joint pain, joint swelling or neck pain Neurologic Neurologic: Reports weakness; Denies confusion, disequilibrium, dizziness, focal weakness, headache(s), paresthesias, radicular pain, restless legs, seizures or tremor(s) Psychiatric Psychiatric: Reports depression; Denies anxiety, homicidal ideation or suicidal ideation Endocrine Endocrinology: Denies change in body appearance, polydipsia or polyuria Hematologic/Lymphatic Hematologic/Lymphatic: Denies easy bleeding, easy bruising or lymphadenopathy Allergic/Immunologic Allergic/Immunologic: Denies rhinitis, eczemia or asthma Vital Signs Vital Signs Vital Signs: 01/17/25 18:47 01/17/25 18:52 01/17/25 22:00 Temperature 98.2 F Temperature Source Temporal Pulse Rate 72 72 Respiratory Rate 17 17 Respiratory Effort Normal Respiratory Depth Normal Respiratory Pattern Normal Blood Pressure 167/93 H 167/93 H Blood Pressure Mean 117 Blood Pressure Source Monitor Blood Pressure Position Semi-Fowlers Blood Pressure Location Left Arm Pulse Ox 97 93 Oxygen Delivery Method Room Air Room Air Oxygen Flow Rate (L/min) 01/17/25 22:25 01/17/25 22:35 01/17/25 23:17 Temperature 98.2 F Temperature Source Temporal Pulse Rate 78 87 Respiratory Rate 17 Respiratory Effort Respiratory Depth Respiratory Pattern Blood Pressure 176/70 H Blood Pressure Mean 105 Blood Pressure Source Monitor Blood Pressure Position Semi-Fowlers Blood Pressure Location Right Arm Pulse Ox 94 Oxygen Delivery Method Room Air Oxygen Flow Rate (L/min) 2 01/18/25 06:00 01/18/25 06:35 Temperature 98.3 F Temperature Source Temporal Pulse Rate 70 61 Respiratory Rate 19 H Respiratory Effort Respiratory Depth Respiratory Pattern Blood Pressure 140/50 H Blood Pressure Mean 80 Blood Pressure Source Monitor Blood Pressure Position Semi-Fowlers Blood Pressure Location Right Arm Pulse Ox 93 Oxygen Delivery Method Nasal Cannula Oxygen Flow Rate (L/min) 2 Weight Weight: 299 lb 9 oz Body Mass Index (BMI) 41.9 Physical Exam Const no apparent distress Constitutional Narrative: slow to arouse. Seems somewhat obtunded. Slow to respond to questions and not making good eye contact when we are speaking. General Appearance: well kempt HEENT head/scalp atraumatic HEENT Narrative: MM are dry....they are always dry and his tongue has a cobblestone appearance.......this is not new. Eyes PERRL, EOMs intact bilaterally, conjunctivae normal and no scleral icterus Eyes Narrative: No discharge from the eyes. General Eye: normal appearance of both eyes Neck No nuchal rigidity and supple Neck Narrative: Neck is thick and short General: trachea midline Chest Chest: symmetrical chest wall rise Resp normal respiratory effort Resp Narrative: appears to be in no respiratory distress. Not coughing. BS's are diminished throughout, katherin in the bases. No crackles and no wheezes. He is lying at approximately 45 degrees in bed. Cardio regular rate, regular rhythm, S1 normal heart sound, S2 normal heart sound, no rub and no gallops Cardio Narrative: He has a 2/6 systolic ejection murmur heard best at the second right intercostal space with radiation to the lower left sternal border and the apex. Occasional ectopic beat. GI normal to inspection, nondistended, normoactive bowel sounds, soft to palpation and non-tender GI Narrative: Obese. No guarding with palpation. Back/Spine no CVA tenderness Extremity Extremity Narrative: He has pitting edema of the distal LE's/ankles........actually looks pretty good for him. GERARD wraps are in place. No cyanosis. Skin no jaundice Skin Narrative: no rashes. Neuro oriented x3, CN's II-XII intact bilaterally and moves all extremities Psych cooperative Psych Narrative: Not restless or agitated. No hallucinations. Appearance: grossly normal and appropriate Activity / Motor Behavior: other not making good eye contact........staring off into space at times........he perked up somewhat when he was out of bed with PT eval. Results Lab / Micro Data 01/18/25 07:16 01/18/25 07:16 Labs: Laboratory Results - last 24 hr 01/17/25 21:14: POC Glucose 174 H 01/18/25 06:21: POC Glucose 143 H 01/18/25 07:16: WBC 5.3, RBC 3.16 L, Hgb 9.1 L, Hct 28.8 L, MCV 91.1, MCH 28.8, MCHC 31.6 L, RDW Std Deviation 44.6 H, RDW Coeff of Jose 13.3, Plt Count 270, MPV 10.0, Immature Gran % (Auto) 2.300 H, Neut % (Auto) 62.8, Lymph % (Auto) 16.0 L, Geary % (Auto) 15.4 H, Eos % (Auto) 2.6, Baso % (Auto) 0.9, Absolute Neuts (auto) 3.3, Absolute Lymphs (auto) 0.85, Nucleated RBC % 0, Sodium 143, Potassium 3.4, Chloride 104, Carbon Dioxide 28.8, Anion Gap 10, BUN 26 H, Creatinine 1.20, Estim Creat Clear Calc 61.34, Est GFR (MDRD) Non-Af 59 L, BUN/Creatinine Ratio 21.8 H, Glucose 143 H, Calcium 8.9, Phosphorus 3.0, Magnesium 2.1, Total Bilirubin 0.23, AST 36, ALT 28, Alkaline Phosphatase 60, Total Protein 5.8 L, Albumin 2.7 L, Globulin 3.2, Albumin/Globulin Ratio 0.8 L Assessment & Plan Assessment/Plan (1) Physical debility: (2) Generalized weakness: (3) Acute on chronic diastolic (congestive) heart failure: (4) (HFpEF) heart failure with preserved ejection fraction: QUALIFIERS: Heart failure chronicity: chronic Qualified Code(s): I50.32 - Chronic diastolic (congestive) heart failure (5) Acute respiratory failure with hypoxemia: PLAN: Due to influenza A + acute on chronic diastolic CHF with preserved EF. (6) Metabolic encephalopathy: (7) Normochromic normocytic anemia: (8) Hyperlipidemia: QUALIFIERS: Hyperlipidemia type: unspecified Qualified Code(s): E78.5 - Hyperlipidemia, unspecified (9) Hyperuricemia: PLAN: with gout in the past (10) Venous insufficiency: (11) Diabetic neuropathy, type II diabetes mellitus: QUALIFIERS: Diabetes mellitus senior living insulin use: with medical terminologist use Qualified Code(s): E11.40 - Type 2 diabetes mellitus with diabetic neuropathy, unspecified; Z79.4 - medical terminologist (current) use of insulin (12) Hypokalemia: (13) Hypoalbuminemia: (14) History of CAD (coronary artery disease): PLAN: S/P CABG. Had demand ischemia at admission to [facility] recently with increased troponin. PLAN: Plan PLAN PT for gait stability OT for ADL's Analgesics as needed Bowel protocol Fall precautions Assess for Anxiety/Depression GI prophylaxis -not transferred to acute rehab from [facility] on anything for GI prophylaxis. He has a known history of GERD and at discharge from acute rehab in December he was taking Protonix 40 mg daily. Will start 20 mg daily and see how he does. DVT prophylaxis with Lovenox 40 mg subcu daily Follow up with [facility] following DC from IP Rehab AM lab including CMP, CBC, Mag and Phos - all personally reviewed. Check a UA Continue glargine with sliding scale insulin at mealtime. Has not been using NPH BID with SS since DC from acute rehab on 12/28/24 Give additional potassium today to get K up to 4. Recheck in a few days. GERARD wraps to BL LE's and elevation while sitting in a chair. Charges/Coding Visit Charges Inpatient E&M: 25677 Init Hosp L2
--- NOTE | 2025-01-18 10:06 | PCM.RU.PYE ---
Admission Information Primary Diagnosis:: Debility due to generalized weakness related to recent influenza A with acute hypoxic respiratory failure Status Changes from Prescreening?: No changes Identified Actual Problem List:: Cognitve Impr/Memory Loss, Depression, Mobility Impaired, Self Care Deficit, Alteration/ Air Exchange, Fluid Overload r/t CHF and Alteration-Leisure Activ. Potential Problem List:: DVT, Bleeding, Infection, UTI, Aspiration, Falls, Skin Integrity and Depression Risk of Complications DVT: LMWH and JULIETH Hose Bleeding: Monitor Lab Values, Nursing to Teach Precautions for anti-coagulation therapy., Wound, if applicable, to be assessed every shift. and Stroke patients assessed for lethargy or change in status. Infection: Clinical Staff to Monitor for S/S of infection: and S/S of infection include fever, redness, warmth, etc. Urinary Tract Infection: Monitor for frequency, burning, discomfort, or incontinence. and Nursing will obtain urine sample for urinalysis and C&S when ordered. Aspiration: Clinical staff will monitor for coughing, drooling, congestion., Speech will evaluate swallowing and dsyphasia. and Nursing will monitor patient swallowing during meals. Falls: Patient will be evaluated for Fall Precautions and Patient will be placed on Fall Precautions as indicated per protocol. Skin Breakdown: Nursing will assess skin daily using assessment tool. and Nursing will place on Skin Breakdown Precautions as indicated. Pain: Clinical staff will assess patient's pain level per protocol., Medications will be given, if needed, and the pain level reassessed. and Other methods: Massage, distraction, decrease stimulus, etc. used PRN. Plan of Care Patient requires physician specializing in physical medicine and rehab oversight to provide close medical supervision of rehab issues including: Pain Management, Sleep Problems, Bowel and Bladder, Medical and co-morbidity Management, DVT prophylaxis, Rehabilitation Leadership and Coordination of treatment team Patient needs Physical Therapy: For a minimum of 1 hour and At least 5 out of 7 days Patient needs Physical Therapy to improve:: Mobility, Strengthening, Transfers, Stretching, ROM, Endurance, Stairs, Gait and Balance Patient needs Occupational Therapy: For a minimum of 1 hour and At least 5 out of 7 days Patient needs Occupational Therapy to improve ADL's incl.: Eating, Grooming, Bathing, Dressing, Toileting, Toilet transfers, Community Reintegration, Higher functioning activities, Household tasks, Adaptive Equipment, Splinting and Other activities as determined Patient requires 08/06 Rehabilitation Nursing for: Pain Issues, Identifying and preventing risk factors, Monitoring and reporting current medical conditions, Assisting with ambulation, transfer, and all ADL's, Teaching patients about disease process and medications, Family teaching, Providing safe environment, Bowel and Bladder Issues, Skin integrity and Medication Management Patient needs [employer]/ Case Management for: Discharge Planning, Arranging Home Equipment or Services and Family Interventions Patient needs Dietary and Nutrition Services for: Adequate Nutrition, Nutritional Supplements and Nutritional Education Goals Goals Patient will remain: free from falls Patient will perform eating at: MOD I level of assist. Patient will perform bed mobility at: MOD I level of assist. Patient will complete transfers from bed to chair at: - (Supervision) Patient will ambulate: - (225 feet with least restrictive device with supervision on various surfaces) Patient will complete upper body dressing at: MOD I level of assist. Patient will complete lower body dressing at: MOD I level of assist. (Using adaptive equipment as needed) Patient will complete toilet transfer at: MOD I level of assist. Patient will complete toileting at: MOD I level of assist. Patient will perform bathing at: - (Will complete upper body bathing independently and lower body bathing at mod I with adaptive equipment as necessary.) Patient will perform Tub/Shower transfer at: - (Supervision using DME as needed.) Patient will complete grooming at: MOD I level of assist. (While standing at the sink) Patient will complete home management skills at: MOD I level of assist. Patient will achieve: - (1 curb step with least restrictive device at standby assist) Patient will have pain level of: of 3 or less Patient's skin will: remain intact Patient will receive: adequate nutrition. Discharge Planning Pt Prognosis for Sig. Practical Improv. w/in Reasonable Time: Good Estimated Length of stay (days): 14 Anticipated D/C Destination: Home with Outpt Therapy Was Preadmission Assessment Accurate?: Yes
[2025-01-18] MEDS: Pantoprazole Sodium 20 MG Tablet PO (11:52)
[2025-01-18] MEDS: Bumetanide 2 MG Tablet PO (11:52)
[2025-01-18] MEDS: Potassium Chloride Oral Tablet 20 MEQ 40 MEQ PO (11:52)
[2025-01-18 12:14] LABS: Bedside Glucose 144 mg/dL (74-106)
--- NOTE | 2025-01-18 16:48 | CHAPLAIN ---
Type of Pastoral Visit _x__ Initial Visit ___ Follow-up Visit ___ On-call Visit ___ General Patient Visit ___ Spiritual Assessment ___ Family Conference ___ Bereavement ___ Rapid Response ___ Code Blue ___ Other (describe below) Pastoral Care Referral From _x__ Patient ___ Family ___ Nurse ___ Physician ___ Machinist General ___ Event Decorator ___ Other (describe below) Sacrament/Intervention _x__ Active listening ___ Anointing ___ Lutheran ___ Bereavement ___ Communion _x__ Celeste exploration ___ _x__ Life review _x__ Prayer ___ Reconciliation ___ Sacrament of Sick _x__ Supportive presence ___ Wedding ___ Other (describe below) Pastoral Comments patient had been seen in previous admission; pt had a new illness as did his ; pt is concerned for his but thankful she was able to go home from the hospital; pt has strong spiritual beliefs and shares them and their importance at this time; pt welcomed someone to talk with and to receive a prayer; pt asks for future visits if possible
[2025-01-18 17:11] LABS: Bedside Glucose 130 mg/dL (74-106)
[2025-01-18 17:57] LABS: Bacteria 0 SEEN /hpf (None Seen); Mucous, Urine 0 SEEN /hpf (<or=2+); White Blood Cells 0 SEEN /hpf (0-5)
[2025-01-18 18:06] LABS: Color, Urine Yellow (Yellow); Glucose, Dipstick 100 mg/dl (Normal); Ketone-Dipstick Negative (Negative); Leukocyte Esterase-Dipstick Negative /ul (Negative); Nitrite-Dipstick Negative (Negative); Occult Blood-Urine 10 /ul (Negative); Protein-Dipstick 30 mg/dl (Negative); Urine Bilirubin Dipstick Negative (Negative); Urine Clarity Sl. Cloudy (Clear); Urine Urobilinogen Normal (Normal)
[2025-01-18 18:33] LABS: Amorphous Sediment 1+ PHOS; Red Blood Cells-Urine 0-5 SEEN /hpf (0-5); Squamous Epithelial Cells - UA 0-5 SEEN /hpf (0-5)
[2025-01-18] MEDS: Insulin Glargine-YFGN 100 UNIT/ML Pen 15 UNIT SC (21:26)
[2025-01-18 22:10] LABS: Bedside Glucose 163 mg/dL (74-106)
[2025-01-19] VITALS (8 sets, daily range): BP systolic 133–158; BP diastolic 52–62; PULSE 60–67; RESP 16–18; TEMP 36.4–36.6; O2SAT 91–95; BMI 42.2
[2025-01-19] MEDS: Enoxaparin 40 MG/0.4 ML Syringe SC (06:40)
[2025-01-19] MEDS: hydrALAZINE 50 MG Tablet 100 MG PO ×3 (06:42→22:51)
[2025-01-19 07:22] LABS: Bedside Glucose 110 mg/dL (74-106)
[2025-01-19] MEDS: Spironolactone 25 MG Tablet PO ×2 (08:16→22:53)
[2025-01-19] MEDS: Pantoprazole Sodium 20 MG Tablet PO (08:17)
[2025-01-19] MEDS: Carvedilol 3.125 MG TABLET PO ×2 (08:17→16:25)
[2025-01-19] MEDS: Losartan Potassium 100 MG Tablet PO (08:17)
[2025-01-19] MEDS: Aspirin E.C. 81 MG Tablet PO (08:17)
[2025-01-19] MEDS: Allopurinol 100 MG Tablet PO (08:17)
[2025-01-19] MEDS: Potassium Chloride Oral Tablet 20 MEQ PO ×2 (08:17→16:26)
[2025-01-19] MEDS: Isosorbide Mononitrate 30 MG Tablet PO (08:17)
[2025-01-19] MEDS: Magnesium Chloride 64 MG Delay Rel.Tablet 128 MG PO ×2 (08:17→22:35)
[2025-01-19] MEDS: Empagliflozin 10 MG Tablet PO (08:18)
[2025-01-19] MEDS: Sertraline 100 MG Tablet PO (08:18)
[2025-01-19] MEDS: Bumetanide 2 MG Tablet PO (08:18)
[2025-01-19] MEDS: NIFEdipine 30 MG Tablet PO ×2 (08:18→10:28)
[2025-01-19] MEDS: Gabapentin 600 MG Tablet PO ×2 (08:23→22:34)
--- NOTE | 2025-01-19 08:29 | PN_ITS ---
Subjective Subjective Afebrile VSS -blood pressures for the past 24 hours have ranged from 137/76 to 177/71. Antihypertensives include carvedilol 3.125 mg twice daily, hydralazine 100 mg 3 times daily, losartan 100 mg daily and nifedipine 30 mg daily. Pulse has ranged from 60-69. He was previously taking lisinopril 20 mg twice daily and for some reason this was discontinued at the previous hospital and he was transition to [facility]? He was also taking doxazosin 2 mg nightly at discharge from acute rehab recently. Maintaining appropriate oxygen saturation on RA Oral intake - FOOD good FLUIDS good Weight today is up 2 pounds since admission. Fluid balance yesterday was -200 and overnight he was -300 so I suspect the weight is not entirely accurate. The blood sugar record was reviewed. Blood sugars are well-controlled with no hypoglycemia. He required no insulin coverage yesterday. Discussed with nursing - no problems that need addressed Reviewed the THERAPY notes Medication list reviewed. No complaints today. Upset that he could not recall his childrens names. Recognizes that he is having problems with cognition. Objective Data Objective Data Vital Signs: Vital Signs Temp Pulse Resp BP Pulse Ox O2 Del Method O2 Flow Rate 97.8 F 60 16 144/57 H 91 Room Air 2 01/19/25 06:00 01/19/25 06:42 01/19/25 06:00 01/19/25 06:42 01/19/25 06:00 01/19/25 06:00 01/19/25 06:30 FiO2 93 01/18/25 20:30 Oxygen Flow Rate (L/min) 2 Oxygen Delivery Method Room Air Weight: 301 lb 13.005 oz Body Mass Index (BMI) 42.2 Intake & Output: Intake and Output for Last 24 Hours 01/17/25 01/18/25 01/19/25 23:59 23:59 23:59 Intake Total 670 / 670 1700 / 1700 100 / 100 Output Total 450 / 450 1900 / 1900 400 / 400 Balance 220 / 220 -200 / -200 -300 / -300 Lab / Micro Data 01/18/25 07:16 01/18/25 07:16 Labs: Laboratory Results - last 24 hr 01/18/25 11:51: POC Glucose 144 H 01/18/25 16:44: POC Glucose 130 H 01/18/25 16:50: Urine Color Yellow, Urine Clarity Sl. Cloudy, Urine pH 7.0, Ur Specific [place] 1.010, Urine Protein 30 H, Urine Glucose (UA) 100 H, Urine Ketones Negative, Urine Occult Blood 10 H, Urine Nitrite Negative, Urine Bilirubin Negative, Urine Urobilinogen Normal, Ur Leukocyte Esterase Negative, Urine RBC 0-5 SEEN, Urine WBC 0 SEEN, Ur Squamous Epith Cells 0-5 SEEN, Amorphous Sediment 1+ PHOS, Urine Bacteria 0 SEEN, Urine Mucus 0 SEEN 01/18/25 21:11: POC Glucose 163 H 01/19/25 06:32: POC Glucose 110 H Physical Exam Const no apparent distress HEENT HEENT Narrative: MM are dry....they are always dry and his tongue has a cobblestone appearance.......this is not new. Resp normal respiratory effort and clear to auscultation bilaterally Auscultation: diminished lung sounds Cardio regular rate, regular rhythm, no rub and no gallops Cardio Narrative: He has a 2/6 systolic ejection murmur heard best at the second right intercostal space with radiation to the lower left sternal border and the apex. Occasional ectopic beat. GI normal to inspection, nondistended, normoactive bowel sounds, soft to palpation and non-tender GI Narrative: Obese. No guarding with palpation. Extremity no calf tenderness Extremity Narrative: GERARD wraps in place. Mild ankle edema......good for him. COntinue with GERARD wraps for compression and elevation when sitting. Skin Skin Narrative: no rashes. Assessment & Plan Assessment/Plan (1) Physical debility: (2) Generalized weakness: (3) Acute on chronic diastolic (congestive) heart failure: (4) (HFpEF) heart failure with preserved ejection fraction: QUALIFIERS: Heart failure chronicity: chronic Qualified Code(s): I50.32 - Chronic diastolic (congestive) heart failure (5) Acute respiratory failure with hypoxemia: (6) Metabolic encephalopathy: (7) Normochromic normocytic anemia: (8) Hyperlipidemia: QUALIFIERS: Hyperlipidemia type: unspecified Qualified Code(s): E 78.5 - Hyperlipidemia, unspecified (9) Hyperuricemia: (10) Venous insufficiency: (11) Diabetic neuropathy, type II diabetes mellitus: QUALIFIERS: Diabetes mellitus long term acute care registered nurse insulin use: with long term acute care registered nurse use Qualified Code(s): E11.40 - Type 2 diabetes mellitus with diabetic neuropathy, unspecified; Z79.4 - local company intermodal truck driver (current) use of insulin (12) Hypokalemia: (13) Hypoalbuminemia: (14) History of CAD (coronary artery disease): PLAN: Plan 1. Continue therapy 2. Increase Procardia XL to 60 mg daily. Continue to monitor blood pressure closely. 3. If blood sugars remain well-controlled with no sliding scale coverage needed today will decrease Accu-Cheks to twice daily tomorrow. Charges/Coding Visit Charges Inpatient E&M: 20524 Subs Hosp L1
[2025-01-19 11:52] LABS: Bedside Glucose 105 mg/dL (74-106)
--- NOTE | 2025-01-19 16:33 | CASEMGMT ---
Social Work SW requested pt have family provide copies of advance directives. Pt is uncertain who is his HCPOA. 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
[2025-01-19 17:09] LABS: Bedside Glucose 123 mg/dL (74-106)
[2025-01-19] MEDS: Senna/Docusate Sodium 1 Tablet 2 TABLET PO (22:34)
[2025-01-19] MEDS: Insulin Glargine-YFGN 100 UNIT/ML Pen 15 UNIT SC (22:56)
[2025-01-19 23:08] LABS: Bedside Glucose 149 mg/dL (74-106)
[2025-01-20 06:00] VITALS: BP 126/45; PULSE 60; RESP 16; TEMP 33.9; O2SAT 93; BMI 42.1
[2025-01-20 07:02] VITALS: PULSE 60
[2025-01-20] MEDS: Enoxaparin 40 MG/0.4 ML Syringe SC (07:02)
[2025-01-20] MEDS: hydrALAZINE 50 MG Tablet 100 MG PO ×3 (07:02→21:43)
[2025-01-20 07:32] LABS: Bedside Glucose 106 mg/dL (74-106)
[2025-01-20] MEDS: Carvedilol 3.125 MG TABLET PO ×2 (07:50→17:13)
[2025-01-20] MEDS: Magnesium Chloride 64 MG Delay Rel.Tablet 128 MG PO ×2 (07:50→21:42)
[2025-01-20] MEDS: Pantoprazole Sodium 20 MG Tablet PO (07:51)
[2025-01-20] MEDS: Allopurinol 100 MG Tablet PO (07:51)
[2025-01-20] MEDS: Losartan Potassium 100 MG Tablet PO (07:51)
[2025-01-20] MEDS: Aspirin E.C. 81 MG Tablet PO (07:51)
[2025-01-20] MEDS: NIFEdipine 60 MG Tablet PO (07:51)
[2025-01-20] MEDS: Bumetanide 2 MG Tablet PO (07:51)
[2025-01-20] MEDS: Potassium Chloride Oral Tablet 20 MEQ PO ×2 (07:51→17:13)
[2025-01-20] MEDS: Empagliflozin 10 MG Tablet PO (07:52)
[2025-01-20] MEDS: Gabapentin 600 MG Tablet PO ×2 (07:53→21:49)
[2025-01-20] MEDS: Spironolactone 25 MG Tablet PO ×2 (07:54→21:42)
[2025-01-20] MEDS: Sertraline 100 MG Tablet PO (07:54)
[2025-01-20] MEDS: Isosorbide Mononitrate 30 MG Tablet PO (07:54)
[2025-01-20 11:48] LABS: Bedside Glucose 123 mg/dL (74-106)
[2025-01-20 14:22] VITALS: PULSE 61
[2025-01-20 17:43] LABS: Bedside Glucose 135 mg/dL (74-106)
[2025-01-20 17:48] VITALS: BP 145/50; PULSE 63; RESP 18; TEMP 36.6; O2SAT 94
[2025-01-20 21:43] VITALS: BP 154/58; PULSE 63
[2025-01-20] MEDS: Senna/Docusate Sodium 1 Tablet 2 TABLET PO (21:43)
[2025-01-20] MEDS: Insulin Glargine-YFGN 100 UNIT/ML Pen 15 UNIT SC (21:46)
[2025-01-20 22:00] VITALS: PULSE 63; RESP 18
[2025-01-20 22:53] LABS: Bedside Glucose 159 mg/dL (74-106)
[2025-01-21] VITALS (9 sets, daily range): BP systolic 121–148; BP diastolic 50–67; PULSE 60–63; RESP 16–18; TEMP 36.5–36.7; O2SAT 94–97; BMI 41.5
[2025-01-21] MEDS: Enoxaparin 40 MG/0.4 ML Syringe SC (06:13)
[2025-01-21] MEDS: hydrALAZINE 50 MG Tablet 100 MG PO ×3 (06:14→21:52)
[2025-01-21 06:40] LABS: Bedside Glucose 98 mg/dL (74-106)
[2025-01-21] MEDS: Spironolactone 25 MG Tablet PO ×2 (08:12→21:48)
[2025-01-21] MEDS: Empagliflozin 10 MG Tablet PO (08:12)
[2025-01-21] MEDS: Carvedilol 3.125 MG TABLET PO ×2 (08:12→16:30)
[2025-01-21] MEDS: Aspirin E.C. 81 MG Tablet PO (08:12)
[2025-01-21] MEDS: Allopurinol 100 MG Tablet PO (08:12)
[2025-01-21] MEDS: Sertraline 100 MG Tablet PO (08:12)
[2025-01-21] MEDS: NIFEdipine 60 MG Tablet PO (08:12)
[2025-01-21] MEDS: Potassium Chloride Oral Tablet 20 MEQ PO ×2 (08:13→16:30)
[2025-01-21] MEDS: Isosorbide Mononitrate 30 MG Tablet PO (08:13)
[2025-01-21] MEDS: Pantoprazole Sodium 20 MG Tablet PO (08:13)
[2025-01-21] MEDS: Senna/Docusate Sodium 1 Tablet 2 TABLET PO ×2 (08:13→21:53)
[2025-01-21] MEDS: Magnesium Chloride 64 MG Delay Rel.Tablet 128 MG PO ×2 (08:13→21:52)
[2025-01-21] MEDS: Losartan Potassium 100 MG Tablet PO (08:13)
[2025-01-21] MEDS: Bumetanide 2 MG Tablet PO (08:13)
[2025-01-21] MEDS: Gabapentin 600 MG Tablet PO ×2 (09:02→21:52)
--- NOTE | 2025-01-21 10:50 | PN_ITS ---
Subjective Subjective Afebrile VSS -blood pressure has improved with the increase in Procardia XL to 60 mg. Blood pressure over the past 24 hours has ranged from 136/67 to 154/58. Current blood pressure is 139/51. Heart rate is in the low 60s. Maintaining appropriate oxygen saturation on a 2 L nasal cannula. Oral intake - FOOD good FLUIDS fair Postvoid residuals are all less than 20. The blood sugar record was reviewed. Blood sugars are well-controlled on 15 units of glargine at at bedtime, Jardiance 10 mg daily and carb controlled diet. No hypoglycemia. Discussed with nursing - no problems that need addressed Reviewed the THERAPY notes speech therapy saw him yesterday for a cognitive evaluation and he scored 25 out of a possible 50 on BCAT. He also had a BCAT on 12/15/2024 and the score was 26/50. Medication list reviewed. Poor insight into his level of disability at this time. His only concern is whether or not he will need O2 at home. Golden denies lightheadedness, vertigo, CP, SOB at rest, SOB with exertion, cough, nausea, vomiting, abd pain, diarrhea, constipation, dysuria and calf pain. He tells me that his legs are less swollen than they have been recently. When I entered the room he was once again sitting with his legs dependent. Objective Data Objective Data Vital Signs: Vital Signs Temp Pulse Resp BP Pulse Ox O2 Del Method O2 Flow Rate 97.7 F L 62 16 139/51 H 96 CPAP 2 01/21/25 06:00 01/21/25 08:14 01/21/25 06:00 01/21/25 08:14 01/21/25 09:51 01/21/25 06:00 01/21/25 09:51 FiO2 93 01/19/25 22:00 Oxygen Flow Rate (L/min) 2 Oxygen Delivery Method CPAP Weight: 296 lb 11.875 oz Body Mass Index (BMI) 41.5 Intake & Output: Intake and Output for Last 24 Hours 01/19/25 01/20/25 01/21/25 23:59 23:59 23:59 Intake Total 900 / 900 1300 / 1300 300 / 300 Output Total 1700 / 1700 1600 / 1600 400 / 400 Balance -800 / -800 -300 / -300 -100 / -100 Lab / Micro Data 01/18/25 07:16 01/18/25 07:16 Labs: Laboratory Results - last 24 hr 01/20/25 11:28: POC Glucose 123 H 01/20/25 17:08: POC Glucose 135 H 01/20/25 21:46: POC Glucose 159 H 01/21/25 06:12: POC Glucose 98 Physical Exam Const alert and no apparent distress Constitutional Narrative: sitting in the recliner at the bedside with his legs dependent General Appearance: cooperative Resp normal respiratory effort and clear to auscultation bilaterally Resp Narrative: No conversational dyspnea Effort and Inspection: Negative for tachypneic Cardio regular rate and regular rhythm Cardio Narrative: Distant heart sounds GI normal to inspection, nondistended, normoactive bowel sounds, soft to palpation and non-tender Extremity no calf tenderness Extremity Narrative: GERARD wraps are in place. Has edema of both legs. Reminded him to keep legs elevated when he is sitting in a chair. Skin Rashes: no rashes Assessment & Plan Assessment/Plan (1) Physical debility: (2) Generalized weakness: (3) Acute on chronic diastolic (congestive) heart failure: (4) (HFpEF) heart failure with preserved ejection fraction: QUALIFIERS: Heart failure chronicity: chronic Qualified Code(s): I50.32 - Chronic diastolic (congestive) heart failure (5) Acute respiratory failure with hypoxemia: (6) Metabolic encephalopathy: (7) Normochromic normocytic anemia: (8) Hyperlipidemia: QUALIFIERS: Hyperlipidemia type: unspecified Qualified Code(s): E 78.5 - Hyperlipidemia, unspecified (9) Hyperuricemia: (10) Venous insufficiency: (11) Diabetic neuropathy, type II diabetes mellitus: QUALIFIERS: Diabetes mellitus terminal operations manager insulin use: with residential use Qualified Code(s): E11.40 - Type 2 diabetes mellitus with diabetic neuropathy, unspecified; Z79.4 - intermediate (current) use of insulin (12) Hypokalemia: (13) Hypoalbuminemia: (14) History of CAD (coronary artery disease): (15) Cognitive dysfunction: PLAN: Plan 1. Continue therapy 2. DC as needed clonidine. DC as needed hydralazine. 3. Change the Accu-Cheks to twice daily, FBS and supper 4. Recheck a CBC and BMP on Thursday 5. Continue Bumex 2 mg p.o. daily. 6. Speech therapy will continue to work with him for cognitive tasks. Charges/Coding Visit Charges Inpatient E&M: 40160 Subs Hosp L1
[2025-01-21 11:31] LABS: Bedside Glucose 104 mg/dL (74-106)
[2025-01-21 16:41] LABS: Bedside Glucose 118 mg/dL (74-106)
[2025-01-21] MEDS: Insulin Glargine-YFGN 100 UNIT/ML Pen 15 UNIT SC (21:54)
[2025-01-21 22:48] LABS: Bedside Glucose 131 mg/dL (74-106)
[2025-01-22] MEDS: Enoxaparin 40 MG/0.4 ML Syringe SC (05:21)
[2025-01-22 05:23] VITALS: PULSE 71
[2025-01-22] MEDS: hydrALAZINE 50 MG Tablet 100 MG PO ×3 (05:23→21:27)
[2025-01-22 06:00] VITALS: BP 172/66; PULSE 71; RESP 17; TEMP 36.6; O2SAT 94; BMI 41.7
[2025-01-22 06:57] VITALS: O2SAT 94
[2025-01-22 07:12] LABS: Bedside Glucose 105 mg/dL (74-106)
[2025-01-22] MEDS: Isosorbide Mononitrate 30 MG Tablet PO (08:58)
[2025-01-22] MEDS: Magnesium Chloride 64 MG Delay Rel.Tablet 128 MG PO ×2 (08:58→21:26)
[2025-01-22] MEDS: Pantoprazole Sodium 20 MG Tablet PO (08:58)
[2025-01-22] MEDS: Aspirin E.C. 81 MG Tablet PO (08:58)
[2025-01-22] MEDS: Carvedilol 3.125 MG TABLET PO ×2 (08:58→17:22)
[2025-01-22] MEDS: Bumetanide 2 MG Tablet PO (08:58)
[2025-01-22] MEDS: NIFEdipine 60 MG Tablet PO (08:58)
[2025-01-22] MEDS: Potassium Chloride Oral Tablet 20 MEQ PO ×2 (08:59→17:23)
[2025-01-22] MEDS: Sertraline 100 MG Tablet PO (08:59)
[2025-01-22] MEDS: Empagliflozin 10 MG Tablet PO (08:59)
[2025-01-22] MEDS: Losartan Potassium 100 MG Tablet PO (08:59)
[2025-01-22] MEDS: Allopurinol 100 MG Tablet PO (08:59)
[2025-01-22] MEDS: Spironolactone 25 MG Tablet PO ×2 (08:59→21:26)
[2025-01-22] MEDS: Gabapentin 600 MG Tablet PO ×2 (09:03→21:26)
[2025-01-22 11:43] LABS: Bedside Glucose 114 mg/dL (74-106)
[2025-01-22 14:16] VITALS: BP 161/58; PULSE 61
[2025-01-22 16:26] LABS: Bedside Glucose 129 mg/dL (74-106)
[2025-01-22 17:41] VITALS: BP 164/59; PULSE 63; RESP 17; TEMP 37.1; O2SAT 96
[2025-01-22 21:27] VITALS: BP 140/55; PULSE 61
[2025-01-22] MEDS: Insulin Glargine-YFGN 100 UNIT/ML Pen 15 UNIT SC (22:09)
[2025-01-22 22:30] LABS: Bedside Glucose 153 mg/dL (74-106)
[2025-01-23] VITALS (12 sets, daily range): BP systolic 113–160; BP diastolic 56–63; PULSE 61–69; RESP 17–19; TEMP 36.5–36.6; O2SAT 88–96; BMI 41.0
[2025-01-23] MEDS: Enoxaparin 40 MG/0.4 ML Syringe SC (05:45)
[2025-01-23] MEDS: hydrALAZINE 50 MG Tablet 100 MG PO ×3 (05:45→21:18)
[2025-01-23 06:16] LABS: Bedside Glucose 115 mg/dL (74-106)
[2025-01-23 06:31] LABS: Hemoglobin 9.4 g/dL (13.0-16.5); Mean Corp Hgb Conc 31.3 g/dL (32-36); Mean Corpuscular Hgb 28.5 pg (27.0-32.0); Mean Corpuscular Volume 90.9 fL (80-94); Mean Platelet Vol. 9.8 fl (6.2-12.0); Platelet Count 256 K/mm3 (150-450); RBC Distribution Width CV 13.9 % (11.6-14.6); RBC Distribution Width SD 45.9 fl (35.1-43.9); White Blood Count 4.9 K/mm3 (4.4-11.0)
[2025-01-23] MEDS: Potassium Chloride Oral Tablet 20 MEQ PO ×2 (07:47→16:58)
[2025-01-23] MEDS: Carvedilol 3.125 MG TABLET PO ×2 (07:47→16:58)
[2025-01-23] MEDS: Spironolactone 25 MG Tablet PO (07:47)
[2025-01-23] MEDS: Aspirin E.C. 81 MG Tablet PO (07:47)
[2025-01-23] MEDS: Senna/Docusate Sodium 1 Tablet 2 TABLET PO (07:47)
[2025-01-23] MEDS: Losartan Potassium 100 MG Tablet PO (07:49)
[2025-01-23] MEDS: Magnesium Chloride 64 MG Delay Rel.Tablet 128 MG PO ×2 (07:49→21:20)
[2025-01-23] MEDS: NIFEdipine 60 MG Tablet PO (07:50)
[2025-01-23] MEDS: Pantoprazole Sodium 20 MG Tablet PO (07:50)
[2025-01-23] MEDS: Empagliflozin 10 MG Tablet PO (07:50)
[2025-01-23] MEDS: Bumetanide 2 MG Tablet PO (07:50)
[2025-01-23] MEDS: Sertraline 100 MG Tablet PO (07:51)
[2025-01-23] MEDS: Allopurinol 100 MG Tablet PO (07:51)
[2025-01-23] MEDS: Isosorbide Mononitrate 30 MG Tablet PO (07:51)
--- NOTE | 2025-01-23 08:19 | PCM.PROGNOTE ---
Subjective Subjective Golden was seen on team rounds today. His daughter Dominique participated by phone. Afebrile VSS - BP's are improving with the increase in the Procardia XL dose to 60 mg. HR is WNL Maintaining appropriate oxygen saturation on RA wile awake.......wearing O2 when sleeping. Pulse ox was 88% on RA with exertion today. He is 95% on 1 LPM with ambulation. Oral intake - FOOD good FLUIDS fair there are 5 BM's recorded for 01/22......non-formed. The blood sugar record was reviewed. Blood sugars are under excellent control with no hypoglycemia. Wt is down about 6-7 lbs since admission to rehab. Discussed with nursing - no problems that need addressed. Sleeping well at night. No complaints. Reviewed the THERAPY notes Medication list reviewed. All lab from today was personally reviewed. White blood cell count is normal. Hemoglobin is stable at 9.4. Platelets are within normal limits. BMP shows a sodium of 144 and potassium of 3.0. Creatinine is 1.12 which is very good for him and his BUN is 16. Golden has no complaints today......asks me when he can go home. He is quite happy that he is able to get his crocs on today since the swelling has improved. Calcium corrected for hypoalbuminemia is within normal limits. Dominique relates that Golden had not been giviing his injection of Glargine at and she had to give it to him. He does not adhere to a diabetic diet. She is wondering about a insulin pump.....at his age with his cognitive dysfunction I do not see this as a viable option for him. I offered to make a referral to endocrinology at [place] if she desires. I also told her that he may be a candidate for switching to oral meds.....would consider adding Amaryl but, if he is not compliant with diet at home the blood sugars will more likely than not be controlled. At his age with all his comorbidities tight control is not a goal. HGBA1C on 12/14/24 was 7.5......I do not know what it has been as an OP. He was on a SS with NPH at admission to the hospital in November and if he can not use a pen I do not know how he was getting his insulin at home.......I suspect he was not taking it. Objective Data Objective Data Vital Signs: Vital Signs Temp Pulse Resp BP Pulse Ox O2 Del Method O2 Flow Rate 97.9 F 61 19 H 113/56 L 93 Nasal Cannula 3 01/23/25 05:52 01/23/25 07:53 01/23/25 05:52 01/23/25 07:53 01/23/25 07:15 01/23/25 07:15 01/23/25 07:15 FiO2 93 01/19/25 22:00 Oxygen Flow Rate (L/min) 3 Oxygen Delivery Method Nasal Cannula Weight: 292 lb 15.909 oz Body Mass Index (BMI) 41.0 Intake & Output: Intake and Output for Last 24 Hours 01/21/25 01/23/25 01/23/25 23:59 00:59 23:59 Intake Total 1340 / 1415 895 / 1195 300 / 300 Output Total 1700 / 1825 2125 / 2325 200 / 200 Balance -360 / -410 -1230 / -1130 100 / 100 Lab / Micro Data 01/23/25 06:05 01/23/25 06:05 Labs: Laboratory Results - last 24 hr 01/22/25 11:23: POC Glucose 114 H 01/22/25 16:04: POC Glucose 129 H 01/22/25 22:09: POC Glucose 153 H 01/23/25 05:53: POC Glucose 115 H 01/23/25 06:05: WBC 4.9, RBC 3.30 L, Hgb 9.4 L, Hct 30.0 L, MCV 90.9, MCH 28.5, MCHC 31.3 L, RDW Std Deviation 45.9 H, RDW Coeff of Jose 13.9, Plt Count 256, MPV 9.8 Physical Exam Const alert and no apparent distress Constitutional Narrative: sitting in the recliner at the bedside with his legs dependent General Appearance: cooperative Resp normal respiratory effort and clear to auscultation bilaterally Resp Narrative: No conversational dyspnea Effort and Inspection: Negative for tachypneic Cardio regular rate and regular rhythm Cardio Narrative: Distant heart sounds GI normal to inspection, nondistended, normoactive bowel sounds, soft to palpation and non-tender Extremity no calf tenderness Extremity Narrative: Edema is much better than at admission.....I can feel his ankles today. Skin Rashes: no rashes Assessment & Plan Assessment/Plan (1) Physical debility: (2) Generalized weakness: (3) Acute on chronic diastolic (congestive) heart failure: (4) (HFpEF) heart failure with preserved ejection fraction: QUALIFIERS: Heart failure chronicity: chronic Qualified Code(s): I50.32 - Chronic diastolic (congestive) heart failure (5) Acute respiratory failure with hypoxemia: (6) Metabolic encephalopathy: (7) Normochromic normocytic anemia: (8) Hyperlipidemia: QUALIFIERS: Hyperlipidemia type: unspecified Qualified Code(s): E78.5 - Hyperlipidemia, unspecified (9) Hyperuricemia: (10) Venous insufficiency: (11) Diabetic neuropathy, type II diabetes mellitus: QUALIFIERS: Diabetes mellitus intermediate insulin use: with long winder tender use Qualified Code(s): E11.40 - Type 2 diabetes mellitus with diabetic neuropathy, unspecified; Z79.4 - terminal computer operator (current) use of insulin (12) Hypokalemia: (13) Hypoalbuminemia: (14) History of CAD (coronary artery disease): (15) Cognitive dysfunction: PLAN: Plan 1. Continue therapy 2. Potassium chloride 40 mEq p.o. now 3. Increase spironolactone to 50 mg twice daily 4. Recheck a serum potassium at 7 PM tonight and repeat a BMP in the a.m. 5. Continue the increased dose of Procardia XL 60 mg daily. 6. Continue Bumex 2 mg p.o. daily 7. Start glargine 1 mg with breakfast. Decrease Glargine to 10 units at HS. Continue the Lispro sliding scale. Charges/Coding Visit Charges Inpatient E&M: 07676 Subs Hosp L2
[2025-01-23 08:51] LABS: Anion Gap 12 (5-15); BUN 16 mg/dL (4-19); BUN/Creat Ratio 13.8 RATIO (10-20); Calcium,Total 8.1 mg/dL (7.6-11.0); Carbon Dioxide 23.4 mmol/L (21.0-32.0); Chloride 108 mmol/L (98-108); Creatinine, Serum 1.12 mg/dL (0.70-1.20); EST Glomerular Filtration Rate 64 (>60); Estimated Creatinine Clearance 64.93 ml/min (50-250); Glucose 104 mg/dL (70-99); Sodium Level 144 mmol/L (133-145)
[2025-01-23] MEDS: Gabapentin 600 MG Tablet PO ×2 (10:59→21:20)
[2025-01-23 11:19] LABS: Bedside Glucose 116 mg/dL (74-106)
[2025-01-23] MEDS: Potassium Chloride Oral Tablet 20 MEQ 40 MEQ PO ×2 (11:44→21:27)
--- NOTE | 2025-01-23 13:04 | CASEMGMT ---
Social Work IDT met with patient at bedside and dtr Dominique, participated by phone, for Team meeting. Discussed patient's progress in PT/OT/ST/SN. Educated to Medicare approval of 11 days with DC 01/28. Pt is new on 1L O2 currently. Pt's goal is to return home with . SW inquired if dtr/pt has any reservations to homegoing. Dtr denies. SW to coordinate skilled HHC and O2, if needed at DC. No other needs identified. [facility] SW agreed and sent referral via [facility]. Dtr to transport at DC. 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
[2025-01-23 18:02] LABS: Bedside Glucose 130 mg/dL (74-106)
[2025-01-23 20:18] LABS: Potassium 3.1 mmol/L (3.3-5.1)
[2025-01-23] MEDS: Insulin Glargine-YFGN 100 UNIT/ML Pen 10 UNIT SC (21:19)
[2025-01-23] MEDS: Spironolactone 50 MG Tablet PO (21:19)
[2025-01-23 21:43] LABS: Bedside Glucose 130 mg/dL (74-106)
[2025-01-24] VITALS (8 sets, daily range): BP systolic 134–166; BP diastolic 53–69; PULSE 59–63; RESP 16–18; TEMP 36.7–36.9; O2SAT 92–96; BMI 40.9
[2025-01-24 05:35] LABS: Anion Gap 11 (5-15); BUN 18 mg/dL (4-19); BUN/Creat Ratio 15.2 RATIO (10-20); Carbon Dioxide 25.2 mmol/L (21.0-32.0); Chloride 109 mmol/L (98-108); Creatinine, Serum 1.16 mg/dL (0.70-1.20); EST Glomerular Filtration Rate 61 (>60); Estimated Creatinine Clearance 62.69 ml/min (50-250); Glucose 103 mg/dL (70-99); Potassium 3.1 mmol/L (3.3-5.1); Sodium Level 145 mmol/L (133-145)
[2025-01-24] MEDS: Enoxaparin 40 MG/0.4 ML Syringe SC (06:20)
[2025-01-24] MEDS: hydrALAZINE 50 MG Tablet 100 MG PO ×3 (06:20→21:03)
[2025-01-24 07:59] LABS: Bedside Glucose 94 mg/dL (74-106)
[2025-01-24] MEDS: Sertraline 100 MG Tablet PO (09:03)
[2025-01-24] MEDS: Spironolactone 50 MG Tablet PO ×2 (09:03→21:04)
[2025-01-24] MEDS: Empagliflozin 10 MG Tablet PO (09:03)
[2025-01-24] MEDS: Pantoprazole Sodium 20 MG Tablet PO (09:03)
[2025-01-24] MEDS: Senna/Docusate Sodium 1 Tablet 2 TABLET PO (09:03)
[2025-01-24] MEDS: NIFEdipine 60 MG Tablet PO (09:03)
[2025-01-24] MEDS: Glimepiride 1 MG Tablet PO (09:04)
[2025-01-24] MEDS: Carvedilol 3.125 MG TABLET PO ×2 (09:04→16:55)
[2025-01-24] MEDS: Losartan Potassium 100 MG Tablet PO (09:04)
[2025-01-24] MEDS: Isosorbide Mononitrate 30 MG Tablet PO (09:04)
[2025-01-24] MEDS: Magnesium Chloride 64 MG Delay Rel.Tablet 128 MG PO ×2 (09:04→21:03)
[2025-01-24] MEDS: Aspirin E.C. 81 MG Tablet PO (09:04)
[2025-01-24] MEDS: Allopurinol 100 MG Tablet PO (09:04)
[2025-01-24] MEDS: Bumetanide 2 MG Tablet PO (09:05)
[2025-01-24] MEDS: Gabapentin 600 MG Tablet PO ×2 (09:06→21:03)
[2025-01-24] MEDS: Potassium Chloride Oral Tablet 20 MEQ PO ×3 (09:07→21:03)
--- NOTE | 2025-01-24 10:26 | PCM.PROGNOTE ---
Subjective Subjective Pt is starting on Amaryl 1 mg today. Glargine was decreased to 10 units last night. The bedtime blood sugar was 130 and the fasting today is 94. He required a 1 liter bleed in of O2 while sleeping to keep the pulse ox 90 or >. He usually uses 2 LPM at home with CPAP. Still on 1 LPM with exertion. Slept well last night. Good appetite and good oral fluid intake. Vital signs are stable. Weight is stable at 292 pounds and 9 ounces. He was given a total of 80 MEQ of extra KCL yesterday in addition to the regularly scheduled 20 MEQ BID and the K is still only 3.1 today. Spironolactone was increased to 50 mg twice daily yesterday. BUN and creatinine are stable. Golden has no complaints today. He feels like he will be ready to go home by the end of the week. We had a discussion about insulin and dietary compliance. Would like to get him off insulin since his dtr is having to administer the insulin. Golden tells me that the BS is checked twice a day and the blood sugar us rarely > 250. He is now on Jardiance for CRF and CHF. No adverse reactions to Jardiance and specifically no hypoglycemia or acidosis. His does the shopping and she is not diabetic. She likes sweets and he will eat them if they are in the house. Objective Data Objective Data Vital Signs: Vital Signs Temp Pulse Resp BP Pulse Ox O2 Del Method O2 Flow Rate 98.1 F 59 L 16 145/56 H 96 Nasal Cannula 1 01/24/25 06:00 01/24/25 06:20 01/24/25 06:00 01/24/25 06:00 01/24/25 08:03 01/24/25 09:42 01/24/25 09:42 FiO2 93 01/19/25 22:00 Oxygen Flow Rate (L/min) 1 Oxygen Delivery Method Nasal Cannula Weight: 292 lb 8.854 oz Body Mass Index (BMI) 40.9 Intake & Output: Intake and Output for Last 24 Hours 01/23/25 01/23/25 01/24/25 00:59 23:59 23:59 Intake Total 895 / 1195 1720 / 1720 600 / 600 Output Total 2125 / 2325 1650 / 1650 350 / 350 Balance -1230 / -1130 70 / 70 250 / 250 Lab / Micro Data 01/23/25 06:05 01/25/25 05:13 Labs: Laboratory Results - last 24 hr 01/23/25 10:59: POC Glucose 116 H 01/23/25 17:37: POC Glucose 130 H 01/23/25 19:31: Potassium 3.1 L 01/23/25 21:16: POC Glucose 130 H 01/24/25 04:50: Sodium 145, Potassium 3.1 L, Chloride 109 H, Carbon Dioxide 25.2, Anion Gap 11, BUN 18, Creatinine 1.16, Estim Creat Clear Calc 62.69, Est GFR (MDRD) Non-Af 61, BUN/Creatinine Ratio 15.2, Glucose 103 H, Calcium 8.0 01/24/25 06:14: POC Glucose 94 Physical Exam Const alert, oriented x3 and no apparent distress Constitutional Narrative: sitting in the recliner at the bedside with his legs dependent General Appearance: cooperative and well kempt HEENT head/scalp atraumatic Eyes PERRL, EOMs intact bilaterally, conjunctivae normal and no scleral icterus Eyes Narrative: No discharge from the eyes. General Eye: normal appearance of both eyes Neck No nuchal rigidity and supple Neck Narrative: Neck is thick and short General: trachea midline Chest Chest: symmetrical chest wall rise Resp normal respiratory effort and clear to auscultation bilaterally Resp Narrative: No conversational dyspnea Effort and Inspection: Negative for tachypneic Auscultation: diminished lung sounds diffuse (Suspect secondary to body habitus.) Cardio regular rate, regular rhythm, no rub and no gallops Cardio Narrative: No ectopy. Distant heart sounds GI normal to inspection, nondistended, normoactive bowel sounds, soft to palpation and non-tender GI Narrative: No guarding with palpation. Having some loose stool, likely secondary to stool softeners which are on hold currently. Back/Spine no CVA tenderness Extremity no calf tenderness Extremity Narrative: Edema is much better than at admission.....I can feel his ankles today. He is very happy that he is now able to get his shoes on. Skin no jaundice Skin Narrative: no rashes. Rashes: no rashes Neuro oriented x3, CN's II-XII intact bilaterally and moves all extremities Neuro Narrative: cognition is at baseline. Psych affect normal Psych Narrative: Not restless or agitated. No hallucinations. Appearance: grossly normal and appropriate Activity / Motor Behavior: other not making good eye contact........staring off into space at times........he perked up somewhat when he was out of bed with PT eval. Assessment & Plan Assessment/Plan (1) Physical debility: (2) Generalized weakness: (3) (HFpEF) heart failure with preserved ejection fraction: QUALIFIERS: Heart failure chronicity: chronic Qualified Code(s): I50.32 - Chronic diastolic (congestive) heart failure (4) Normochromic normocytic anemia: (5) Hyperlipidemia: QUALIFIERS: Hyperlipidemia type: unspecified Qualified Code(s): E78.5 - Hyperlipidemia, unspecified (6) Venous insufficiency: (7) Hypokalemia: (8) Hypertension: QUALIFIERS: Hypertension type: primary hypertension Qualified Code(s): I10 - Essential (primary) hypertension PLAN: Plan 1. Continue therapy 2. Give 40 mEq of potassium chloride now. Increase the scheduled potassium chloride to 20 mEq 3 times daily. Continue the increased dose of spironolactone at 50 mg twice daily. 3. Recheck a potassium at 8 PM tonight and in the AM. 4. Continue to monitor the BS's AC and HS for a couple days since he is going to be taking Amaryl. Hold the Glargine tonight. 5. Blood pressure is not adequately controlled even with the increase in the Procardia XL to 60 mg. He was changed from lisinopril 20 mg p.o. twice daily to Cozaar 100 mg daily at the previous hospital. I suspect this may have something to do with the persistent hypokalemia and uncontrolled hypertension. 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 Charges/Coding Visit Charges Inpatient E&M: 53296 Subs Hosp L1
[2025-01-24] MEDS: Potassium Chloride Oral Tablet 20 MEQ 40 MEQ PO (11:18)
[2025-01-24 16:40] LABS: Bedside Glucose 93 mg/dL (74-106)
[2025-01-25] VITALS (7 sets, daily range): BP systolic 142–165; BP diastolic 53–83; PULSE 60–68; RESP 15–17; TEMP 36.7–37.1; O2SAT 96; BMI 41.1
[2025-01-25] MEDS: Enoxaparin 40 MG/0.4 ML Syringe SC (05:41)
[2025-01-25] MEDS: Potassium Chloride Oral Tablet 20 MEQ PO (05:41)
[2025-01-25] MEDS: hydrALAZINE 50 MG Tablet 100 MG PO ×3 (05:46→21:09)
[2025-01-25 06:31] LABS: Potassium 3.2 mmol/L (3.3-5.1)
[2025-01-25 06:34] LABS: Bedside Glucose 111 mg/dL (74-106)
[2025-01-25] MEDS: Glimepiride 1 MG Tablet PO (07:58)
[2025-01-25] MEDS: Carvedilol 3.125 MG TABLET PO ×2 (07:58→16:45)
[2025-01-25] MEDS: Pantoprazole Sodium 20 MG Tablet PO (07:58)
[2025-01-25] MEDS: Losartan Potassium 100 MG Tablet PO (07:58)
[2025-01-25] MEDS: Magnesium Chloride 64 MG Delay Rel.Tablet 128 MG PO ×2 (07:58→21:07)
[2025-01-25] MEDS: Sertraline 100 MG Tablet PO (07:58)
[2025-01-25] MEDS: NIFEdipine 60 MG Tablet PO (07:58)
[2025-01-25] MEDS: Empagliflozin 10 MG Tablet PO (07:58)
[2025-01-25] MEDS: Bumetanide 2 MG Tablet PO (07:58)
[2025-01-25] MEDS: Spironolactone 50 MG Tablet PO ×2 (07:59→21:07)
[2025-01-25] MEDS: Isosorbide Mononitrate 30 MG Tablet PO (07:59)
[2025-01-25] MEDS: Allopurinol 100 MG Tablet PO (07:59)
[2025-01-25] MEDS: Aspirin E.C. 81 MG Tablet PO (07:59)
[2025-01-25] MEDS: Gabapentin 600 MG Tablet PO ×2 (08:00→21:08)
[2025-01-25 10:38] LABS: Magnesium 2.1 mg/dL (1.5-2.2)
[2025-01-25] MEDS: Potassium Chloride Oral Tablet 20 MEQ 40 MEQ PO ×2 (13:18→21:07)
[2025-01-25 17:36] LABS: Bedside Glucose 116 mg/dL (74-106)
[2025-01-26] VITALS (8 sets, daily range): BP systolic 123–157; BP diastolic 56–75; PULSE 62–67; RESP 16–18; TEMP 36.2–36.4; O2SAT 92–96; BMI 41.3
[2025-01-26] MEDS: Enoxaparin 40 MG/0.4 ML Syringe SC (05:49)
[2025-01-26] MEDS: Potassium Chloride Oral Tablet 20 MEQ 40 MEQ PO ×3 (05:50→21:04)
[2025-01-26] MEDS: hydrALAZINE 50 MG Tablet 100 MG PO ×3 (05:50→21:04)
[2025-01-26 06:38] LABS: Potassium 3.6 mmol/L (3.3-5.1)
[2025-01-26 06:56] LABS: Bedside Glucose 103 mg/dL (74-106)
[2025-01-26] MEDS: Spironolactone 50 MG Tablet PO ×2 (08:59→21:04)
[2025-01-26] MEDS: Aspirin E.C. 81 MG Tablet PO (08:59)
[2025-01-26] MEDS: Empagliflozin 10 MG Tablet PO (08:59)
[2025-01-26] MEDS: NIFEdipine 60 MG Tablet PO (08:59)
[2025-01-26] MEDS: Magnesium Chloride 64 MG Delay Rel.Tablet 128 MG PO ×2 (08:59→21:04)
[2025-01-26] MEDS: Pantoprazole Sodium 20 MG Tablet PO (08:59)
[2025-01-26] MEDS: Sertraline 100 MG Tablet PO (08:59)
[2025-01-26] MEDS: Allopurinol 100 MG Tablet PO (08:59)
[2025-01-26] MEDS: Carvedilol 3.125 MG TABLET PO ×2 (09:00→16:18)
[2025-01-26] MEDS: Losartan Potassium 100 MG Tablet PO (09:00)
[2025-01-26] MEDS: Glimepiride 1 MG Tablet PO (09:00)
[2025-01-26] MEDS: Bumetanide 2 MG Tablet PO ×2 (09:00→17:25)
[2025-01-26] MEDS: Isosorbide Mononitrate 30 MG Tablet PO (09:00)
[2025-01-26] MEDS: Gabapentin 600 MG Tablet PO ×2 (09:08→21:04)
--- NOTE | 2025-01-26 12:20 | PN_ITS ---
Subjective Subjective Afebrile VSS -blood pressure later in the day is still elevated. Diastolics are always within goal but at the end of the day yesterday the systolic ranged from 1 51-1 65. Maintaining appropriate oxygen saturation on RA Oral intake - FOOD good FLUIDS variable but usually good. The blood sugar record was reviewed. The blood sugars remain under excellent control with no hypoglycemia with no glargine/insulin. Discussed with nursing - no problems that need addressed Reviewed the THERAPY notes Medication list reviewed. I did not hear back from cardiology regarding the Cozaar vs Lisinopril. BP's were better on Lisinopril and he required less spironolactone and less potassium supplementation. Golden tells me that he is doing well and he is ready to go home. Denies CP, SOB, lightheadedness, calf pain, orthopnea. Objective Data Objective Data Vital Signs: Vital Signs Temp Pulse Resp BP Pulse Ox O2 Del Method O2 Flow Rate 97.1 F L 63 18 123/75 H 95 CPAP 1 01/26/25 06:00 01/26/25 06:00 01/26/25 06:00 01/26/25 06:00 01/26/25 06:00 01/26/25 06:00 01/26/25 10:03 FiO2 93 01/19/25 22:00 Oxygen Flow Rate (L/min) 1 Oxygen Delivery Method CPAP Weight: 295 lb 8 oz Body Mass Index (BMI) 41.3 Intake & Output: Intake and Output for Last 24 Hours 01/24/25 01/25/25 01/26/25 23:59 23:59 23:59 Intake Total 2390 / 2390 1300 / 1300 480 / 480 Output Total 2350 / 2350 1375 / 1675 900 / 900 Balance 40 / 40 -75 / -375 -420 / -420 Lab / Micro Data 01/23/25 06:05 01/26/25 12:40 Labs: Laboratory Results - last 24 hr 01/25/25 16:49: POC Glucose 116 H 01/26/25 05:38: Potassium 3.6 01/26/25 06:36: POC Glucose 103 Physical Exam Const alert, oriented x3 and no apparent distress Constitutional Narrative: sitting in the recliner at the bedside with his legs dependent General Appearance: cooperative and well kempt Chest Chest: symmetrical chest wall rise Resp normal respiratory effort and clear to auscultation bilaterally Resp Narrative: No conversational dyspnea. Still getting winded with exertion. Not coughing. He maintained an O2 sat of 92-95% today on RQ while working with PT. Effort and Inspection: Negative for tachypneic Auscultation: diminished lung sounds diffuse (Suspect secondary to body habitus.) Cardio regular rate, regular rhythm, no rub and no gallops Cardio Narrative: No ectopy. Distant heart sounds GI normal to inspection, nondistended, normoactive bowel sounds, soft to palpation and non-tender GI Narrative: No guarding with palpation. Having some loose stool, likely secondary to stool softeners which are on hold currently. Extremity no calf tenderness Extremity Narrative: Edema is much better than at admission.....I can feel his ankles today. He is very happy that he is now able to get his shoes on. Assessment & Plan Assessment/Plan (1) Physical debility: (2) Generalized weakness: (3) (HFpEF) heart failure with preserved ejection fraction: QUALIFIERS: Heart failure chronicity: chronic Qualified Code(s): I50.32 - Chronic diastolic (congestive) heart failure (4) Normochromic normocytic anemia: (5) Hyperlipidemia: QUALIFIERS: Hyperlipidemia type: unspecified Qualified Code(s): E 78.5 - Hyperlipidemia, unspecified (6) Venous insufficiency: (7) Hypokalemia: (8) Hypertension: QUALIFIERS: Hypertension type: primary hypertension Qualified Code(s): I10 - Essential (primary) hypertension PLAN: Plan 1. Continue therapy 2. Discontinue Cozaar and restart lisinopril 10 mg twice daily....may not need 20 mg since the Procardia was increased. 3. Check a potassium today and a BMP in the a.m. 4. We discussed vaccinations again today and I told him I highly recommend Pneumovax, RSV and influenza vaccines. If he has not had Shingrix I also recommend he consider getting this vaccine as well. 5. PA and lateral CXR today 6. Overnight trending pulse ox tonight. Golden tells me he wears 2 LPM of O2 at night. Told nursing he does not have oxygen at home. ESTELA called around to O2 suppliers and PCP and no one seems to know if he has O2 at home or not. she has known MARTIN and uses CPAP. DC date is Thursday. Will be going home. Charges/Coding Visit Charges Inpatient E&M: 21247 Subs Hosp L1
[2025-01-26 13:19] LABS: Potassium 3.5 mmol/L (3.3-5.1)
--- NOTE | 2025-01-26 16:08 | RAD_ITS ---
PROCEDURE: CHEST PA AND LATERAL REASON FOR EXAM: RECENT PNA/HYPOXEMIA TECHNIQUE: Frontal and lateral views of the chest. COMPARISON: None. FINDINGS: The cardiac silhouette is enlarged. Diffuse vascular congestion is noted. There are bilateral pleural effusions present. These findings are worrisome for pulmonary edema/CHF with bilateral effusions. Follow-up to clearing is recommended. 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 Cardiac silhouette is enlarged. There are median sternotomy wires present, likely from prior CV surgery. Surgical clips seen within the upper abdomen. RAD/Chest PA and Lateral IMPRESSION: CHF/pulmonary edema with bilateral pleural effusions. Follow-up until resoluti on is recommended. Pneumonia to be ruled out clinically. Reading Location: [id number]
[2025-01-26 17:02] LABS: Bedside Glucose 144 mg/dL (74-106)
[2025-01-26] MEDS: Lisinopril 10 MG Tablet PO (21:04)
[2025-01-26 21:36] LABS: Bedside Glucose 107 mg/dL (74-106)
[2025-01-27] VITALS (9 sets, daily range): BP systolic 140–167; BP diastolic 54–65; PULSE 66–77; RESP 17–18; TEMP 36.6–36.8; O2SAT 85–96; BMI 41.1
[2025-01-27] MEDS: hydrALAZINE 50 MG Tablet 100 MG PO ×3 (04:57→21:24)
[2025-01-27] MEDS: Potassium Chloride Oral Tablet 20 MEQ 40 MEQ PO ×4 (04:57→21:27)
[2025-01-27] MEDS: Enoxaparin 40 MG/0.4 ML Syringe SC (04:57)
[2025-01-27 06:10] LABS: Bedside Glucose 102 mg/dL (74-106)
[2025-01-27 06:44] LABS: Pro- Brain NATRIURETIC PEPTIDE 629 pg/mL (<=1800)
[2025-01-27 06:46] LABS: Anion Gap 11 (5-15); BUN 15 mg/dL (4-19); BUN/Creat Ratio 12.2 RATIO (10-20); Calcium,Total 8.2 mg/dL (7.6-11.0); Chloride 109 mmol/L (98-108); EST Glomerular Filtration Rate 59 (>60); Estimated Creatinine Clearance 60.75 ml/min (50-250); Glucose 106 mg/dL (70-99); Potassium 3.3 mmol/L (3.3-5.1); Sodium Level 144 mmol/L (133-145)
[2025-01-27] MEDS: Bumetanide 2 MG Tablet PO ×2 (08:05→17:26)
[2025-01-27] MEDS: Spironolactone 50 MG Tablet PO ×2 (08:05→21:24)
[2025-01-27] MEDS: NIFEdipine 60 MG Tablet PO (08:06)
[2025-01-27] MEDS: Magnesium Chloride 64 MG Delay Rel.Tablet 128 MG PO ×2 (08:06→21:24)
[2025-01-27] MEDS: Pantoprazole Sodium 20 MG Tablet PO (08:06)
[2025-01-27] MEDS: Isosorbide Mononitrate 30 MG Tablet PO (08:06)
[2025-01-27] MEDS: Carvedilol 3.125 MG TABLET PO ×2 (08:06→17:26)
[2025-01-27] MEDS: Allopurinol 100 MG Tablet PO (08:06)
[2025-01-27] MEDS: Sertraline 100 MG Tablet PO (08:06)
[2025-01-27] MEDS: Glimepiride 1 MG Tablet PO (08:06)
[2025-01-27] MEDS: Aspirin E.C. 81 MG Tablet PO (08:06)
[2025-01-27] MEDS: Empagliflozin 10 MG Tablet PO (08:06)
[2025-01-27] MEDS: Lisinopril 10 MG Tablet PO ×2 (08:06→21:24)
[2025-01-27] MEDS: Gabapentin 600 MG Tablet PO ×2 (08:09→21:24)
--- NOTE | 2025-01-27 08:37 | CPS ---
RT tried downloading Nocturnal Pulse-ox treand but there was no data on the machine. RT left not with RT for Dr Jacobson with RT's phone # on how she wants to proceed. If she wants it done tonight, we will make sure it is not the same machine in case it is machine error not human error.
--- NOTE | 2025-01-27 14:20 | CASEMGMT ---
Social Work Pt does not qualify for daytime O2, but does need nocturnal O2 bled into CPAP. After further investigation including speaking with pt, aki Victor, and [employer], pt has 2LPM nocturnal O2 ordered through [employer] and concentrator at home. Pt does not need new O2 at DC. Continue with planned DC 01/28. Era Guerrero POWER SUPERINTENDENT ED CASE MANAGER
--- NOTE | 2025-01-27 16:21 | PCM.DC ---
Discharge Instructions Diet Discharge Diet: - (Low-fat, low-salt, carb controlled diet) DC O2, CPAP, BIPAP needs Home O2 Discharge instructions: Yes Type of respiratory needs?: Oxygen (2 L/min) Oxygen frequency: With Sleeping Oxygen liters per minute when sleepin LPM and CPAP CPAP instructions: Where CPAP anytime you are sleeping Dressing / Incision Discharge Activity: May Not Drive, May Shower and - (Use a wheeled walker or a quad cane for ambulation. Would suggest a walker for longer distances.) Weight Bearing Status: Full weight bearing Dressing / Incision Call your doctor if you observe: Fever of 101 or Higher, Inability to urinate, Shortness of breath, Dizziness, Fainting spells, Chest pain, Increased palpitations (irregular heartbeat), Calf discomfort, Uncontrolled pain and - (If your weight increase by more than 5 lbs in a week call your doctor for instruction on what to do with the Bumex and decrease your salt and fluid intake. ) Follow Up Care Please Follow Up With: Vesta Lewis, When: 02/01/25 at 2 PM. You also have an appt to follow up with Melva fish on 02/16/25. Test Results: Test results from this visit will be discussed in further detail at your follow-up appointment, if applicable. Pending Tests Upon Discharge: none Discharge Plan Admission Admit Date/Time: 01/17/25 16:34 Primary Reason for Your Visit: denbility due to influenza/acute respiratory failure with hypoxemia. Attending Provider: Kierra Jacobson Primary Care Provider: Vesta Lewis Instructions Additional Instructions / Restrictions: 1. You will need to have lab checked when you see Dr. Lewis in the office. I am giving you a lab requisition to give to Dr. Lewis when you see her next week. 2. I recommend if you have not had a pneumovac that you get on and also recommend a vaccine for another respiratory virus called RSV. I highly recommend you get an influenza vaccine and a COVID vaccine yearly. You have chronic congestive heart failure, chronic lung disease, sleep apnea and you are 84 years old. You had a very bad case of the FLU and any of these viruses could end up in admission to the hospital, respiratory failure possibly requiring intubation and placing you on a ventilator and even . Sometimes people still get the virus even when they have a vaccine but, they don't get nearly as sick. Also if you have ever had chicken pox you are at risk for shingles so you may want to consider Shingrix to help prevent shingles. 3. Your blood sugars are now controlled on 2 oral medications.....Jardiance and Amaryl. You have not been on insulin for a few days prior to discharge from rehab and your blood sugars are very good. IF you don't go hog wild eating carbohydrates (bread, potatoes, cakes, cookies, pasta) at home your will likely not need insulin going forward. It is Impossible to control diabetes/blood sugars without some compliance with carbohydrate restriction. 4. Keep you legs elevated when sitting in a chair to help keep the swelling down. the best way to tell if you are retaining fluid is to weigh your self daily in the morning after urinating with the same clothes on or nothing on. KEEP A RECORD AND TAKE THIS TO YOU NEXT DOCTORS APPT. It is normal for the weight to fluctuate a lb or 2 BUT, if your weight increases by 5 lbs or more in 1 week then you are retaining fluid. If this happens cut down on salt and fluid and call Dr. Lewis for instruction on what to do with the diuretic (Bumex).......you may need to increase the frequency for a couple days or increase the dose. 5. Take ONLY the medications listed on the Discharge instructions. 6. I do not know what medications you have at home and what you need. I have faxed the prescriptions for the NEW medications to [facility] in [place] and I have written out all the prescriptions that I know you were taking in the past and are still taking now........you do not have to get the written prescriptions filled IF you already have the meds at home. 7. If you or your family have any questions after you leave rehab please do not hesitate to call. OFFICE: [phone] CELL: [phone] NURSES [facility]: [phone] I worte a prescription for lab to be drawn by [facility] on 01/31 with the results to be sent to Dr. Lewis. Discharge Orders/Prescriptions Prescriptions: New bumetanide 2 mg Tablet 2 mg PO DAILY Qty: 30 0RF glimepiride 1 mg Tablet 1 mg PO BREAKFAST Qty: 30 0RF Rx Instructions: Take one daily in the AM for diabetes. pantoprazole 20 mg Tablet,Delayed Release (Dr/Ec) 20 mg PO DAILY Qty: 30 0RF potassium chloride 20 mEq Tablet,Er Particles/Crystals 40 meq PO TID Qty: 80 0RF Rx Instructions: 2 tabs 3 times a day with meals. nifedipine 60 mg Tablet Extended Release 24hr 60 mg PO DAILY Qty: 30 0RF lisinopril 10 mg Tablet 10 mg PO BID Qty: 60 0RF spironolactone 50 mg Tablet 50 mg PO BID Qty: 60 0RF Rx Instructions: 1 tablet twice daily Continued aspirin [Adult Aspirin Regimen] 81 mg tablet,delayed release (DR/EC) 81 mg PO DAILY gabapentin 600 mg tablet 600 mg PO BID Qty: 60 0RF isosorbide mononitrate 30 mg tablet extended release 24 hr 30 mg PO DAILY Qty: 30 0RF sertraline 100 mg tablet 100 mg PO DAILY Qty: 30 0RF allopurinol 100 mg tablet 100 mg PO QDAY Qty: 30 0RF carvedilol [Coreg] 3.125 mg tablet 3.125 mg PO BID Qty: 60 0RF Rx Instructions: must administer with a meal/food hydralazine 100 mg tablet 100 mg PO TID Qty: 90 0RF magnesium chloride [Mag 64] 64 mg Tablet,Delayed Release (Dr/Ec) 128 mg PO BID Qty: 120 0RF Jardiance 10 mg tablet 10 mg PO DAILY Qty: 30 0RF Discontinued hydralazine 10 mg tablet 10 mg PO Q3H PRN (Reason: BP) Rx Instructions: SBP >160 losartan [Cozaar] 100 mg tablet 100 mg PO DAILY clonidine HCl 0.1 mg tablet 0.1 mg PO DAILY PRN (Reason: BP) Rx Instructions: FOR SYSTOLIC >160 Humalog KwikPen Insulin 200 unit/mL (3 mL) insulin pen See Protocol subcut ACHS Protocol: 5. Sliding Scale Insulin High Dosing Condition: 150-209 mg/dl = 3 units Condition: 210-259 mg/dl = 6 units Condition: 260-324 mg/dl = 9 units Condition: 325-374 mg/dl = 12 units Condition: 375-409 mg/dl = 14 units Condition: 410-449 mg/dl = 16 units Condition: Greater than 449 call physician Protocol Text: Suggested for: - Patients on Total Daily Insulin Dose of 81-120 units - Very insulin resistant patients HIGH DOSING ALGORITHM nifedipine 30 mg Tablet Extended Release 24hr 30 mg PO DAILY Qty: 30 0RF spironolactone 25 mg Tablet 25 mg PO BID Qty: 60 0RF insulin glargine-yfgn 100 unit/mL (3 mL) Insulin Pen 15 unit subcut QHS Qty: 3 0RF potassium chloride 20 mEq tablet extended release 20 meq PO BID Qty: 60 0RF Referrals / Follow Up: Melva Sparrow [Other] - 02/16/25 2:00 pm (Cardiology ) Vesta Lewis DO [Primary Care Provider] - 02/01/25 2:00 pm Disposition Disposition (needs filled in before D/C Order can be placed): Home Health Service
[2025-01-27 17:11] LABS: Bedside Glucose 104 mg/dL (74-106)
--- NOTE | 2025-01-27 17:34 | PCM.DC.SUM ---
Providers Date of Admission: 01/17/25 Date of Discharge: 01/28/25 Primary Care Physician: Dr. Vesta Lewis, Reason For Visit: ACUTE RESPIRATORY FAILURE Diagnosis Discharge Diagnosis (1) Physical debility: Status: Acute Code(s): R53.81 - Other malaise (2) Generalized weakness: Status: Chronic Code(s): R53.1 - Weakness (3) (HFpEF) heart failure with preserved ejection fraction: Status: Chronic Code(s): I50.30 - Unspecified diastolic (congestive) heart failure Qualifiers: Heart failure chronicity: chronic Qualified Code(s): I50.32 - Chronic diastolic (congestive) heart failure (4) Normochromic normocytic anemia: Status: Chronic Code(s): D64.9 - Anemia, unspecified (5) Hyperlipidemia: Status: Chronic Code(s): E78.5 - Hyperlipidemia, unspecified Qualifiers: Hyperlipidemia type: unspecified Qualified Code(s): E78.5 - Hyperlipidemia, unspecified (6) Venous insufficiency: Status: Chronic Code(s): I87.2 - Venous insufficiency (chronic) (peripheral) (7) Hypokalemia: Status: Chronic Code(s): E87.6 - Hypokalemia Plan: Potassium is difficult to control. It got harder to control when he was transitioned from Lisinopril 20 mg BID to Cozaar 100 mg daily while at previous hospital. He had no adverse reactions to Lisinopril and his BP and potassium were controlled while on Lisinopril. Even with increasing Procardia XL to 60 mg daily the BP remained above goal. We had to increase the potassium supplement and the dose of spironolactone. I attempted to reach cardiology and left a VM but, no one got back with me. On 01/26/25 he was taken off Cozaar and restarted on Lisinopril 10 mg BID. He is getting 40 MEQ of potassium TID and 50 mg of Spironolactone BID. On 01/27/25 the K was 3.3 and he received an extra dose of 40 MEQ of potassium. I gave him a requisition to have [facility] draw a BMP, Mag and CBC on 01/31/25 and send the results to Dr. Lewis. I am hopeful that reinstituting Lisinopril will help maintain the K at an appropriate level. (8) Hypertension: Status: Chronic Code(s): I10 - Essential (primary) hypertension Qualifiers: Hypertension type: primary hypertension Qualified Code(s): I10 - Essential (primary) hypertension Plan: BP is improving and on 01/27 it ranged from (9) MARTIN on CPAP: Status: Chronic Code(s): G47.33 - Obstructive sleep apnea (adult) (pediatric) Plan: He is consistent with CPAP and uses a 2 LPM bleed in with CPAP. (10) Sleep related hypoxia: Status: Chronic Code(s): G47.34 - Idiopathic sleep related nonobstructive alveolar hypoventilation (11) History of CAD (coronary artery disease): Status: Chronic Code(s): Z86.79 - Personal history of other diseases of the circulatory system (12) Hyperuricemia: Status: Chronic Code(s): E79.0 - Hyperuricemia without signs of inflammatory arthritis and tophaceous disease Plan: Continue allopurinol (13) Diabetes mellitus, type 2: Status: Chronic Code(s): E11.9 - Type 2 diabetes mellitus without complications Qualifiers: Chronic kidney disease stage: stage 3 (moderate) Chronic kidney disease stage 3 subtype: unspecified whether 3a or 3b Diabetes mellitus complication detail: with chronic kidney disease Diabetes mellitus complication status: with kidney complications Diabetes mellitus adjunct faculty for medical terminology insulin use: with chcf use Qualified Code(s): E11.22 - Type 2 diabetes mellitus with diabetic chronic kidney disease; N18.30 - Chronic kidney disease, stage 3 unspecified; Z79.4 - jail (current) use of insulin Plan: Blood sugars are well controlled at discharge from rehab on Jardiance 10 mg daily (recently started for CHF) and Amaryl 1 mg in the AM. Has been on a carb consistent diet. Insulin was discontinued while on rehab. He received education about carb control while on rehab. (14) Morbid obesity with BMI of 40.0-44.9, adult: Status: Chronic Code(s): E66.01 - Morbid (severe) obesity due to excess calories; Z68.41 - Body mass index [BMI] 40.0-44.9, adult (15) Chronic renal failure (CRF), stage 3a: Status: Acute Code(s): N18.31 - Chronic kidney disease, stage 3a Plan 1. Dc home on 01/28/25 with [facility]. 2. Lab requisition given for CBC, BMP and a MAG on 01/31/25 with the results to be sent to Dr. Yadi Lewis 3. No driving. 4. Hypoxia with exertion has resolved and he only requires oxygen supplementation when sleeping. 5. Fatigues easily and has poor exercise tolerance. Medications at Discharge Home Medications aspirin 81 mg tablet,delayed release (Adult Aspirin Regimen) 81 mg PO DAILY heart health 09/20/24 allopurinol 100 mg tablet 100 mg PO QDAY gout #30 tabs 01/27/25 bumetanide 2 mg tablet 2 mg PO DAILY #30 tabs 01/27/25 carvedilol 3.125 mg tablet (Coreg) 3.125 mg PO BID BP #60 tabs 01/27/25 empagliflozin 10 mg tablet (Jardiance) 10 mg PO DAILY Blood sugar #30 tabs 01/27/25 gabapentin 600 mg tablet 600 mg PO BID pain #60 tabs 01/27/25 glimepiride 1 mg tablet 1 mg PO BREAKFAST #30 tabs 01/27/25 hydralazine 100 mg tablet 100 mg PO TID HTN #90 tabs 01/27/25 isosorbide mononitrate 30 mg tablet,extended release 24 hr 30 mg PO DAILY BP #30 tabs 01/27/25 lisinopril 10 mg tablet 10 mg PO BID #60 tabs 01/27/25 magnesium chloride 64 mg (magnesium chloride) tablet,delayed release (Mag 64) 128 mg (2 x 64 mg) PO BID supplement #120 tabs 01/27/25 nifedipine 60 mg tablet,extended release 24 hr 60 mg PO DAILY #30 tabs 01/27/25 pantoprazole 20 mg tablet,delayed release 20 mg PO DAILY #30 tabs 01/27/25 potassium chloride 20 mEq tablet,extended release(part/cryst) 40 meq (2 x 20 mEq) PO TID #80 tabs 01/27/25 sertraline 100 mg tablet 100 mg PO DAILY DEPRESSION #30 tabs 01/27/25 spironolactone 50 mg tablet 50 mg PO BID #60 tabs 01/27/25 Hospital Course Operations None Procedures None Summary of Care Provided Minutes Spent on Discharge: 44 Hospital Course: GOLDEN YANEZISER, is a 84 YO M who is well known to me from a recent admission to [facility] acute rehab from 12/13/24 to 12/27/24. Past medical history is significant for diabetes mellitus type 2/insulin-dependent complicated by neuropathy, GERD, heart failure with preserved ejection fraction, diastolic dysfunction, hypertension, chronic renal failure stage IIIa, obstructive sleep apnea on CPAP and oxygen at night, remote TIAs, coronary artery disease with history of CABG, aortic stenosis with history of TAVR, history of colon cancer, left bundle branch block, peripheral vascular disease, hyperuricemia, depression and morbid obesity. He was discharged from [facility] acute rehab on 12/27/24 and was readmitted to [facility] on 01/08/25 c/o SOB, fever/chills and cough. Tested + for influenza A. He was placed on Tamiflu. He was also placed on cefepime for suspected superimposed bacterial pneumonia when his oxygen requirements increased and the CXR worsened. He was hypoxic and required 6 LPM nasal O2. His oxygen requirement increased over the next few days and on 01/11 he was on 50% FIO2 via high flow NC. XRAY on 01/11 showed increasing bilateral alveolar opacities and small effusions. He underwent a Left thoracentesis on 01/10/25 with 550 cc of fluid removed. The fluid was a transudate. Cardiology was consulted. He received IV Albumin and IV Bumex 2 mg BID to aid in diuresis. RADHA showed a 60 to 65% ejection fraction with left ventricular hypertrophy. He had a dilated IVC. Oxygen requirements decreased with diuresis. He was transferred to the acute inpt rehab unit at [facility] on 01/17/25 for 3 hours of therapy daily to restore function at or near the level he had at [place] from acute rehab on 12/27/24. He was still requiring supplemental oxygen with exertion when he arrived on rehab. He fatigued easily and had poor exercise tolerance. At his first admission to rehab he was on Lisinopril 20 mg BID and BP and potassium were well controlled at [place] home. While at [facility] the Lisinopril was discontinued and he was started on Cozaar 100 mg daily. I could not find a reason for the transition. BP and potassium since admission to rehab this time have been difficult to control. He has been getting 2 mg of Bumex a day which is a chronic medication for him. We had to increase the Procardia XL to 60 mg daily and BP was still not adequately controlled katherin later in the afternoon and the evening. We had to increase K supplement to 40 MEQ TID and spironolactone to 50 mg BID and still the potassium was low. Cozaar was discontinued on 01/26/25 and he was started on Lisinopril 10 mg BID. K on 01/27 is 3.3 and he was given an extra dose of KCL 40 MEQ (for a total of q120 MEQ on 01/27). Potassium was rechecked on the morning of DC and was once again 3.3. He was given a 4th dose of KCL 40 MEQ on the day of DC. He is being discharged on 40 MEQ TID. He has been recently restarted on Lisinopril so I anticipate the K will start increasing. He was given a lab slip to have a BMP on 01/31/25. [facility] should be able to draw the blood and the results will be sent to Dr. Lewis. BP was 155/62 on the day of DC but, I suspect that restarting the Lisinopril will help with BP. He was previously on 20 mg BID and I restarted on 10 mg BID. Golden was very cooperative with therapy and motivated to go home at [place]. At the time of DC he is mod I with eating, grooming, bathing, upper body dressing, lower body dressing, toileting and toilet transfer. He is supervision/set up with tub/shower transfer for safety for at least 1 week. He has ambulated up to 200 feet with a quad cane and wheelchair follow for longer ambulatory trials while on room air and maintaining appropriate oxygen saturation. He is mod I with ambulation in his room at the time of discharge and doing well. He is mod I with transfers from various surfaces. He can ascend/descend 1 curb step with a quad cane at contact-guard assist/min assist. He will have home health care with [facility] at discharge. He will continue 2 LPM O2 bleed in with CPAP when he is sleeping. Golden has follow-up appointments which have been scheduled for him with Melva Sparrow from cardiology on 02/16/2025 at 2 PM and with his primary care physician Dr. Yadi Lewis on 02/01/2025 at 2 PM. Physical Exam Const alert, oriented x3 and no apparent distress Constitutional Narrative: sitting in the recliner at the bedside with his legs dependent General Appearance: cooperative and well kempt Chest Chest: symmetrical chest wall rise Resp normal respiratory effort and clear to auscultation bilaterally Resp Narrative: No conversational dyspnea. Still getting winded with exertion. Not coughing. He maintained an O2 sat of 92-95% today on RQ while working with PT. Effort and Inspection: Negative for tachypneic Auscultation: diminished lung sounds diffuse (Suspect secondary to body habitus.) Cardio regular rate, regular rhythm, no rub and no gallops Cardio Narrative: No ectopy. Distant heart sounds GI normal to inspection, nondistended, normoactive bowel sounds, soft to palpation and non-tender GI Narrative: No guarding with palpation. Having some loose stool, likely secondary to stool softeners which are on hold currently. Extremity no calf tenderness Extremity Narrative: Edema is much better than at admission.....I can feel his ankles today. He is very happy that he is now able to get his shoes on. Weight / BMI Weight Weight: 289 lb Body Mass Index (BMI) 40.4 ABG / Lab / Microbiology Data 01/23/25 06:05 01/28/25 05:29 Laboratory: Laboratory Results - last 24 hr 01/26/25 21:13: POC Glucose 107 H 01/27/25 05:38: Sodium 144, Potassium 3.3, Chloride 109 H, Carbon Dioxide 24.0, Anion Gap 11, BUN 15, Creatinine 1.20, Estim Creat Clear Calc 60.75, Est GFR (MDRD) Non-Af 59 L, BUN/Creatinine Ratio 12.2, Glucose 106 H, Calcium 8.2, NT pro BNP II 629 01/27/25 05:51: POC Glucose 102 01/27/25 16:53: POC Glucose 104 D/C Instructions Discharge Diet: - (Low-fat, low-salt, carb controlled diet) Weight Bearing Status: Full weight bearing Call your doctor if you observe: Fever of 101 or Higher, Inability to urinate, Shortness of breath, Dizziness, Fainting spells, Chest pain, Increased palpitations (irregular heartbeat), Calf discomfort, Uncontrolled pain and - (If your weight increase by more than 5 lbs in a week call your doctor for instruction on what to do with the Bumex and decrease your salt and fluid intake. ) DC O2, CPAP, BIPAP Needs PSN CPAP & BiPAP: BiPAP & CPAP Settings per PSN Fraction of Inspired Oxygen ( 21 01/28/25 08:41 FIO2) Home O2 Discharge instructions: Yes Type of respiratory needs?: Oxygen (2 L/min) Oxygen frequency: With Sleeping Oxygen liters per minute when sleepin LPM and CPAP CPAP instructions: Where CPAP anytime you are sleeping DC home with Oxygen: Yes Home O2 MD Review: I have reviewed the oxygen testing, and the patient qualifies for home oxygen equipment and portability. The patient is mobile in the home and the community. He will wear 2 L of oxygen with his CPAP anytime he is sleeping. Pending Tests Upon Discharge: none Please Follow Up With: Vesta Lewis DO When: 02/01/25 at 2 PM. You also have an appt to follow up with Melva saprrow on 02/16/25. Meaningful Use Info Meaningful Use Meaningful Use Diagnoses (Choose all that apply): CHF CHF GERARD/ARB ordered at discharge?: Yes Documented LVEF (%): 55 Ischemic Stroke Statin Dosing Therapy Reference: STATIN DOSE THERAPY REFERENCE: * Patients > 75 years receive moderate or high dose statin therapy. * Patients 75 years or YOUNGER should receive HIGH intensity statin dose unless contraindicated. You will be required to document reason for non-treatment if statin daily dose does not meet guidelines. HIGH DOSE STATIN THERAPY DAILY Atorvastatin > than or = to 40 mg Rosuvastatin > than or = to 20 mg Amlodipine + Atorvastatin > than or = to 2.5/40 mg Ezetimibe + Simvastatin 10/80 mg Simvastatin 80mg Discharge Plan Admission Admit Date/Time: 01/17/25 16:34 Primary Reason for Your Visit: denbility due to influenza/acute respiratory failure with hypoxemia. Attending Provider: Kierra Jacobson Primary Care Provider: Vesta Lewis Instructions Additional Instructions / Restrictions: 1. You will need to have lab checked when you see Dr. Lewis in the office. I am giving you a lab requisition to give to Dr. Lewis when you see her next week. 2. I recommend if you have not had a pneumovac that you get on and also recommend a vaccine for another respiratory virus called RSV. I highly recommend you get an influenza vaccine and a COVID vaccine yearly. You have chronic congestive heart failure, chronic lung disease, sleep apnea and you are 84 years old. You had a very bad case of the FLU and any of these viruses could end up in admission to the hospital, respiratory failure possibly requiring intubation and placing you on a ventilator and even . Sometimes people still get the virus even when they have a vaccine but, they don't get nearly as sick. Also if you have ever had chicken pox you are at risk for shingles so you may want to consider Shingrix to help prevent shingles. 3. Your blood sugars are now controlled on 2 oral medications.....Jardiance and Amaryl. You have not been on insulin for a few days prior to discharge from rehab and your blood sugars are very good. IF you don't go hog wild eating carbohydrates (bread, potatoes, cakes, cookies, pasta) at home your will likely not need insulin going forward. It is Impossible to control diabetes/blood sugars without some compliance with carbohydrate restriction. 4. Keep you legs elevated when sitting in a chair to help keep the swelling down. the best way to tell if you are retaining fluid is to weigh your self daily in the morning after urinating with the same clothes on or nothing on. KEEP A RECORD AND TAKE THIS TO YOU NEXT DOCTORS APPT. It is normal for the weight to fluctuate a lb or 2 BUT, if your weight increases by 5 lbs or more in 1 week then you are retaining fluid. If this happens cut down on salt and fluid and call Dr. Lewis for instruction on what to do with the diuretic (Bumex).......you may need to increase the frequency for a couple days or increase the dose. 5. Take ONLY the medications listed on the Discharge instructions. 6. I do not know what medications you have at home and what you need. I have faxed the prescriptions for the NEW medications to [facility] in [place] and I have written out all the prescriptions that I know you were taking in the past and are still taking now........you do not have to get the written prescriptions filled IF you already have the meds at home. 7. If you or your family have any questions after you leave rehab please do not hesitate to call. OFFICE: [phone] CELL: [phone] NURSES [facility] REH[facility]: [phone] Seema ozuna a prescription for lab to be drawn by [facility] on 01/31 with the results to be sent to Dr. Lewis. Discharge Orders/Prescriptions Prescriptions: New bumetanide 2 mg Tablet 2 mg PO DAILY Qty: 30 0RF glimepiride 1 mg Tablet 1 mg PO BREAKFAST Qty: 30 0RF Rx Instructions: Take one daily in the AM for diabetes. pantoprazole 20 mg Tablet,Delayed Release (Dr/Ec) 20 mg PO DAILY Qty: 30 0RF potassium chloride 20 mEq Tablet,Er Particles/Crystals 40 meq PO TID Qty: 80 0RF Rx Instructions: 2 tabs 3 times a day with meals. nifedipine 60 mg Tablet Extended Release 24hr 60 mg PO DAILY Qty: 30 0RF lisinopril 10 mg Tablet 10 mg PO BID Qty: 60 0RF spironolactone 50 mg Tablet 50 mg PO BID Qty: 60 0RF Rx Instructions: 1 tablet twice daily Continued aspirin [Adult Aspirin Regimen] 81 mg tablet,delayed release (DR/EC) 81 mg PO DAILY gabapentin 600 mg tablet 600 mg PO BID Qty: 60 0RF isosorbide mononitrate 30 mg tablet extended release 24 hr 30 mg PO DAILY Qty: 30 0RF sertraline 100 mg tablet 100 mg PO DAILY Qty: 30 0RF allopurinol 100 mg tablet 100 mg PO QDAY Qty: 30 0RF carvedilol [Coreg] 3.125 mg tablet 3.125 mg PO BID Qty: 60 0RF Rx Instructions: must administer with a meal/food hydralazine 100 mg tablet 100 mg PO TID Qty: 90 0RF magnesium chloride [Mag 64] 64 mg Tablet,Delayed Release (Dr/Ec) 128 mg PO BID Qty: 120 0RF Jardiance 10 mg tablet 10 mg PO DAILY Qty: 30 0RF Discontinued hydralazine 10 mg tablet 10 mg PO Q3H PRN (Reason: BP) Rx Instructions: SBP >160 losartan [Cozaar] 100 mg tablet 100 mg PO DAILY clonidine HCl 0.1 mg tablet 0.1 mg PO DAILY PRN (Reason: BP) Rx Instructions: FOR SYSTOLIC >160 Humalog KwikPen Insulin 200 unit/mL (3 mL) insulin pen See Protocol subcut ACHS Protocol: 5. Sliding Scale Insulin High Dosing Condition: 150-209 mg/dl = 3 units Condition: 210-259 mg/dl = 6 units Condition: 260-324 mg/dl = 9 units Condition: 325-374 mg/dl = 12 units Condition: 375-409 mg/dl = 14 units Condition: 410-449 mg/dl = 16 units Condition: Greater than 449 call physician Protocol Text: Suggested for: - Patients on Total Daily Insulin Dose of 81-120 units - Very insulin resistant patients HIGH DOSING ALGORITHM nifedipine 30 mg Tablet Extended Release 24hr 30 mg PO DAILY Qty: 30 0RF spironolactone 25 mg Tablet 25 mg PO BID Qty: 60 0RF insulin glargine-yfgn 100 unit/mL (3 mL) Insulin Pen 15 unit subcut QHS Qty: 3 0RF potassium chloride 20 mEq tablet extended release 20 meq PO BID Qty: 60 0RF Referrals / Follow Up: Melva Sparrow [Other] - 02/16/25 2:00 pm (Cardiology ) Vesta Lewis DO [Primary Care Provider] - 02/01/25 2:00 pm Disposition Disposition (needs filled in before D/C Order can be placed): Home Health Service Charges/Coding Visit Charges Inpatient E&M: 96016 Disch Hosp >30min
[2025-01-27 22:58] LABS: Bedside Glucose 126 mg/dL (74-106)
[2025-01-28 06:00] VITALS: BP 155/62; PULSE 71; RESP 18; TEMP 36.4; O2SAT 93
[2025-01-28 06:44] VITALS: BP 155/62; PULSE 71
[2025-01-28] MEDS: Enoxaparin 40 MG/0.4 ML Syringe SC (06:44)
[2025-01-28] MEDS: Potassium Chloride Oral Tablet 20 MEQ 40 MEQ PO ×2 (06:44→09:26)
[2025-01-28] MEDS: hydrALAZINE 50 MG Tablet 100 MG PO (06:44)
[2025-01-28 07:04] LABS: Bedside Glucose 98 mg/dL (74-106)
[2025-01-28 07:10] LABS: Albumin, Serum 2.8 g/dL (3.4-4.8)
[2025-01-28 07:35] VITALS: O2SAT 96
[2025-01-28 07:59] LABS: Potassium 3.3 mmol/L (3.3-5.1)
[2025-01-28] MEDS: Spironolactone 50 MG Tablet PO (08:24)
[2025-01-28] MEDS: Lisinopril 10 MG Tablet PO (08:24)
[2025-01-28] MEDS: NIFEdipine 60 MG Tablet PO (08:24)
[2025-01-28] MEDS: Pantoprazole Sodium 20 MG Tablet PO (08:24)
[2025-01-28] MEDS: Sertraline 100 MG Tablet PO (08:24)
[2025-01-28] MEDS: Bumetanide 2 MG Tablet PO (08:24)
[2025-01-28] MEDS: Magnesium Chloride 64 MG Delay Rel.Tablet 128 MG PO (08:24)
[2025-01-28] MEDS: Empagliflozin 10 MG Tablet PO (08:25)
[2025-01-28] MEDS: Allopurinol 100 MG Tablet PO (08:25)
[2025-01-28] MEDS: Isosorbide Mononitrate 30 MG Tablet PO (08:25)
[2025-01-28] MEDS: Carvedilol 3.125 MG TABLET PO (08:25)
[2025-01-28] MEDS: Glimepiride 1 MG Tablet PO (08:25)
[2025-01-28] MEDS: Aspirin E.C. 81 MG Tablet PO (08:25)
[2025-01-28 08:41] VITALS: PULSE 73; O2SAT 95
[2025-01-28 09:05] VITALS: BMI 40.4
[2025-01-28] MEDS: Gabapentin 600 MG Tablet PO (09:26)
--- NOTE | 2025-01-28 12:00 | NURSING ---
Discharge instructions provided and patient and daughter verbalized understanding.
== END 2025-01-28 12:00 | disposition home health service (06) | DRG 291 ==
PROVIDERS: Admitting Provider Internal Medicine; PCP Family Medicine; Referring Provider Internal Medicine; Visit Provider Internal Medicine
DX: I13.0 Hypertensive heart and chronic kidney disease with heart failure and stage 1 through stage 4 chronic kidney disease, or unspecified chronic kidney disease (principal); J15.9 Unspecified bacterial pneumonia; I24.89 Other forms of acute ischemic heart disease; Z68.42 Body mass index [BMI] 45.0-49.9, adult; I50.32 Chronic diastolic (congestive) heart failure; E88.09 Other disorders of plasma-protein metabolism, not elsewhere classified; E11.22 Type 2 diabetes mellitus with diabetic chronic kidney disease; D64.9 Anemia, unspecified; N18.31 Chronic kidney disease, stage 3a; G47.34 Idiopathic sleep related nonobstructive alveolar hypoventilation; E11.51 Type 2 diabetes mellitus with diabetic peripheral angiopathy without gangrene; E66.01 Morbid (severe) obesity due to excess calories; I25.10 Atherosclerotic heart disease of native coronary artery without angina pectoris; E78.5 Hyperlipidemia, unspecified; E11.40 Type 2 diabetes mellitus with diabetic neuropathy, unspecified; I87.2 Venous insufficiency (chronic) (peripheral); E87.6 Hypokalemia; E11.59 Type 2 diabetes mellitus with other circulatory complications; K21.9 Gastro-esophageal reflux disease without esophagitis; Z79.4 Long term (current) use of insulin; Z79.84 Long term (current) use of oral hypoglycemic drugs; Z79.82 Long term (current) use of aspirin; Z79.899 Other long term (current) drug therapy
CPT/HCPCS: 36415; 71046; 80048; 80053; 81001; 82040; 82962; 83735; 83880; 84100; 84132; 85025; 85027; 94762; 97110; 97112; 97129; 97130; 97162; 97166; 97530; 97535; 97803